=== PATIENT | male | born 1970 | race Caucasian/White ===

== ENCOUNTER 2019-03-19 21:13 | Inpatient (IN) ==
[2019-03-19] MEDS ORDERED: SODIUM CHLORIDE 0.9% 1000ML 2,000 ML IV ONE (22:13)
[2019-03-19] MEDS ORDERED: DAPTOMYCIN IV ONE (22:15)
[2019-03-19 22:22] LABS: Mean Corpuscular Hgb Conc 30.2 g/dL (32-36)
[2019-03-19 22:30] LABS: Albumin Level 3.2 gm/dl (3.4-5.0); BUN Creatinine Ratio 8.9 (10-20); Bilirubin Direct 0.2 mg/dl (0-0.2); Calcium 8.8 mg/dl (8.5-10.1); Creatinine Clr Calc Pharmacy 93.4 ml/min; Est GFR (African American) 90.2; Est GFR (Non-African American) 77.9; Magnesium 1.9 mg/dl (1.8-2.4)
[2019-03-19 22:33] LABS: Albumin Globulin Ratio 0.8 (0.9-2); Bilirubin,Total 0.5 mg/dl (0.2-1); Globulin 3.8 gm/dl (2.5-4.0); INR 1.2 (0.9-1.1); Partial Thromboplastin Ratio 1.6; Partial Thromboplastin Time 43.1 Seconds (21.0-31.0); Phosphorus 2.4 mg/dl (2.5-4.9); Prothrombin Time 12.6 Seconds (9.0-12.0)
[2019-03-19 22:55] LABS: Hematocrit (blood only) 32.3 % (42-52); Hemoglobin 9.6 g/dL (14.0-18.0); Mean Corpuscular Hemoglobin 22.9 pg (25-34); Mean Corpuscular Volume 77.1 fL (80-100); RDW Coefficient of Variation 17.6 % (11.5-14.5); RDW Standard Deviation 49.4 fL (36.4-46.3); Red Blood Count 4.19 M/uL (4.7-6.1); White Blood Count 4.48 K/uL (4.8-10.8)
--- NOTE | 2019-03-19 23:00 | XRay Report ---
XR chest 1V portable HISTORY: Sepsis COMPARISON: Chest 04/25/2018. FINDINGS: No pneumothorax. No pleural effusions. The heart remains mildly enlarged. No new focal lung consolidations to suggest pneumonia. No evidence for pulmonary edema. Right jugular Port-A-Cath term inates at the distal SVC. An 8 mm nodular density within the left lung base. IMPRESSION: 1. No acute process within the chest. 2. An 8 mm nodular density within the left lung base. This could represent a nipple shadow or possibl y pulmonary nodule given the patient's history of metastatic disease. Electronically signed by: Matias Tovar M.D. 03/19/2019 10:59 PM
[2019-03-19] MEDS ORDERED: FLUTICASONE PROPIONATE NA SPR 16 GM BTL PRN (23:03)
[2019-03-19] MEDS ORDERED: PROCHLORPERAZINE MALEATE 10 MG TAB PO PRN (23:03)
[2019-03-19] MEDS ORDERED: PANTOprazole 40 MG TAB PO PRN (23:03)
[2019-03-19] MEDS ORDERED: CHLORPROMAZINE HCL 25 MG TABLET PO PRN (23:03)
[2019-03-19] MEDS ORDERED: ONDANSETRON 8 MG TABLET PO PRN (23:03)
[2019-03-19] MEDS ORDERED: POLYETHYLENE (MIRALAX) 17 GM PACK PO PRN (23:06)
[2019-03-19] MEDS ORDERED: ONDANSETRON INJ 2 MG/ML 2 ML VIAL IV PRN (23:06)
[2019-03-19] MEDS ORDERED: ALUMINUM/MAGNESIUM SUSP 30 ML UDC PO PRN (23:06)
[2019-03-19] MEDS ORDERED: MAGNESIUM HYDROXIDE SUSP 30 ML UDC PO PRN (23:06)
[2019-03-19] MEDS ORDERED: ZOLPIDEM TARTRATE 5 MG TAB PO PRN (23:06)
[2019-03-19] MEDS ORDERED: VANCOMYCIN CONSULT ACTIVE PRN ×2 (23:06)
[2019-03-19 23:14] LABS: Influenza A virus by PCR Neg for Influ A (Neg); Influenza B virus by PCR Neg for Influ B (Neg)
[2019-03-19] MEDS ORDERED: SODIUM CHLORIDE 0.9% 1000ML 1,000 ML IV SCH (23:15)
[2019-03-19 23:31] LABS: Mean Platelet Volume 10.3 fL (7.4-10.4); Platelet Count 128 K/uL (130-400)
[2019-03-19 23:32] LABS: Basophils # (auto) 0.02 K/uL (0-0.2); Basophils % (auto) 0.4 %; Eosinophils # (auto) 0.01 K/uL (0-0.5); Eosinophils % (auto) 0.2 %; Hypochromasia Present; Immature Granulocytes # (auto) 0.02 K/uL (0.00-0.02); Immature Granulocytes % (auto) 0.4 %; Lymphocytes # (auto) 0.65 K/uL (1.2-3.4); Lymphocytes % (auto) 14.5 %; Monocytes # (auto) 0.26 K/uL (0.11-0.59); Monocytes % (auto) 5.8 %; Neutrophils # (auto) 3.52 K/uL (1.4-6.5); Neutrophils % (auto) 78.7 %; Platelet Estimate Decreased (Normal); Tear Drop Cells 1+
--- NOTE | 2019-03-19 23:49 | History & Physical Report ---
Date of Service March 19, 2019 Assessment & Plan (1) Gram-positive cocci bacteremia: Admit to telemetry Appears to be very heavy burden bacteria giving the quick transformation to positive So far 3/4 turn positive within hours Start patient on vancomycin with loading dose 20 mg/kg, consult pharmacy for vancomycin dose adjustment Also until sensitivity comes back we will add ceftriaxone 2 g IV daily for better coverage for strep Consult infectious diseases Consult Dr. Castañeda for port removal, discussed with Dr. Castañeda, will hold Xarelto and keep patient n.p.o. Discussed with patient and his and they are agreeable. 2/6 murmur, patient was not told he has any murmur before, will require 2D echo prior to discharge, will not order it now as a better yield will be if we wait few days, no signs or symptoms of acute congestive heart failure indicating no significant valvular lesion. Patient needs to be started on anticoagulation as soon as the procedure is finished Currently patient has no pharmacologic DVT prophylaxis (2) Colon cancer metastasized to liver: Patient is worried about continuation of his chemotherapy after removal of his port, will consult Dr. Chou (3) Lung nodule, solitary: In the setting of history of metastasized colon cancer that needs to be followed (4) Diabetes 1.5, managed as type 2: Hold metformin, start patient on sliding scale insulin History of Present Illness Chief Complaint: Fever and chills Primary Care Provider: Gera Giles MD 48 years old man with past medical history of diabetes mellitus, remote smoking history, mild obesity, was diagnosed with colon cancer on February 2018. He started chemotherapy on April 2018 for 9 months, he had a surgery at [facility] on where they did remove the cancer and 30% of hi s liver, he still have a small lesion in the liver. His course was complicated with DVT/pulmonary embolism and was started on Xarelto. Also he discovered the diabetes mellitus during the course of therapy and he was started on metformin. Family history strong for colon cancer in his maternal grandmother and maternal aunt who had cancerous polyps. He was in his regular state of health he had a port placed at [facility], yesterday developed chills and low-grade fever. He went to the [facility] today and found to have a fever of 103, blood cultures were redrawn at the cancer center and came back 2/2 gram-positive bacteria within hours of incubation. Presented to the ED and a repeat blood culture was obtained, and again within hours of incubation 1/2 came back gram-positive cocci. Patient will be admitted for further evaluation and management Allergies Allergy/AdvReac Type Severity Reaction Status Date / Time cetuximab [From Erbitux] Allergy Severe Bronchial Verified 03/19/19 22:55 Spasms Home Medications Home Medications Medication Instructions Recorded Confirmed Type fluticasone propionate [Flonase 2 spray INTRANASAL DAILY PRN 04/25/18 03/19/19 History Allergy Relief] ondansetron HCl [Zofran] 8 mg PO Q8H PRN 04/25/18 03/19/19 History prochlorperazine maleate 10 mg PO Q6H PRN 04/25/18 03/19/19 History [Compazine] hydrocortisone 1 applic TOPICAL BID PRN 07/22/18 03/19/19 History pantoprazole [Protonix] 40 mg PO DAILY PRN 07/22/18 03/19/19 History metformin 1,000 mg PO BID 08/02/18 03/19/19 History acetaminophen 500 mg PO Q6H PRN 03/19/19 03/19/19 History chlorpromazine 25 mg PO TID PRN 03/19/19 03/19/19 History rivaroxaban [Xarelto] 20 mg PO DAILY 03/19/19 03/19/19 History Past Med/Surg History Medical History (Updated 03/19/19 @ 23:45 by Mikki Montes MD) Anemia Colon cancer 02/2018--sx, chemo--metastasized to liver and lymph nodes Diabetes mellitus, type 2 (Acute) GERD (gastroesophageal reflux disease) Hypertension BORDERLINE Prediabetes Seasonal allergies Surgical History (Updated 07/22/18 @ 08:36 by Maisha Rivera RN) History of colonoscopy History of colostomy @ [facility], per pt no colon resection only colostomy History of esophagogastroduodenoscopy (EGD) History of vascular access device Aport on right side--currently receiving chemo treatments History of wisdom tooth extraction Hx of vasectomy Family History (Updated 07/22/18 @ 08:26 by Maisha Rivera RN) Unknown Family history of diabetes mellitus Aunt Family hx of colon cancer Other No family history of adverse response to anesthesia Social History Preferred Language: Urdu Communication Ability: 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 Beliefs That Will Affect Care: None Current Living Situation: Spouse and Family Current Living Situation Comment: Lives with and 2 kids Feels Safe at Home: Yes Smoking Status: Never smoker Second Hand Exposure: Yes (parents/most of family smoked) ; Hx Alcohol Use: Yes Alcohol type: beer, wine and hard liquor Hx Substance Use: No Review of Systems Review of Systems: Review of system Constitutional: Positive for fever, chills, fatigue and generalized weakness Eyes: no blurring of vision / no eye pain / no discharge / no redness ENT: no hearing loss / no epistaxis /no swallowing problems Respiratory: no cough / no wheezing / no SOB / no hemoptysis Cardiovascular: no Chest pain / no lower extremity edema / no palpitation Abdomen: no pain / no nausea / no vomiting / no constipation Musculoskeletal: no joint pain / no muscle pain / no joint swelling Genitourinary: no dysuria / no incontinence / no urinary retention Neurologic: no focal weakness / no numbness/tingling / no ataxia Psychiatric: no depression symptoms / no anxiety / no insomnia Endocrine: no excessive thirst / no excessive urination Hematologic: no abnormal bleeding / no bruising / no LN swelling Skin: No rash / no pallor Physical Exam Physical Exam: Physical examination General patient appears to be comfortable, not in acute distress HEENT: Atraumatic , normocephalic /no jaundice /no pallor /anicteric /no dry mucous membrane /normal external ear inspection Neck: Supple /no swelling /central trach Heart: S1/S2 normal/regular rate and rhythm/no gallop /no rub /2/6 parasternal soft murmur Lungs: Clear to auscultation bilaterally/normal chest with expansion/no rhonchi/no rales/no wheezing/no use of accessory muscles of respiration, no pus around the port Abdomen: Colostomy bag in place, soft/nontender/no guarding/no rebound/no organomegaly/no pulsatile mass Musculoskeletal: No swelling/no edema/no tenderness/normal range of motion Neuro exam: Awake alert oriented 3/cranial nerves II through XII appear to be intact/sensation intact/moves all extremities/no abnormal movements Psychiatric evaluation: No depressed mood/normal affect Skin: No rash on exposed skin area/no erythema Extremity: Normal pulse/no pitting edema/no clubbing or cyanosis Endocrine/lymphatic: No obvious lymphadenopathy /no lymphedema Results & Data Vital Signs (Past 12 Hours) Vital Signs Temp Pulse Resp BP Pulse Ox 03/19/19 23:15 90 19 03/19/19 23:01 92 H 23 03/19/19 23:00 93 H 19 117/73 03/19/19 22:58 94 H 18 108/63 03/19/19 22:45 94 H 26 H 03/19/19 22:30 94 H 14 03/19/19 21:16 37.5 C 92 H 20 109/76 96 Code Status & VTE Plan Code Status Full code VTE Prophylaxis Plan VTE Prophylaxis will be ordered: Yes PG Care Time/CCT Total # of Minutes Spent Total Time Spent with Patient: 35 minutes total time spent is greater than 50% in coordination of care (as documented) at patient's floor/unit and/or counseling patient/family discussion of care with nursing staff
--- NOTE | 2019-03-20 00:20 | Emergency Department Note ---
Entered by Jammie Estrada acting as a scribe for History of Present Illness General Chief complaint: Abnormal Labs/Diagnostic Testing Stated complaint: ADNORMAL LABS Time Seen by Provider: 03/19/19 21:20 History of Present Illness Provider complaint: illness Onset (ago): hour(s) (21) Pain Consistency: + other (episode) Quality: + other (illness) Associated symptoms: + headaches (behind eyes) and + other (chills, aches, sinus pressure, dizzy, nauseas, near-syncopal, positive blood cultures for infection, colon cancer, last chemo treatment was 2 weeks ago) Treatments prior to arrival: none The patient is a 48 year old male who presents to the ED with complaints of an episode of an illness that started 21 hours ago, The patient states that he had chills and aches last night at 1900. The patient states that when he woke up this morning he had sinus pressure and a headache behind his eyes. This patient notes that when he got into the shower this morning, he felt dizzy, nauseas and near-syncopal. The patient states that he went to his chemo appointment today, but his blood cultures were positive for infection so they are delaying chemo for one week. The patient notes that he is getting chemo therapy for colon cancer and his last treatment was 2 weeks ago. The patient denies taking any treatments prior to arrival. Home Medications Home Medications Medication Instructions Recorded Confirmed Type fluticasone propionate [Flonase 2 spray INTRANASAL DAILY PRN 04/25/18 03/19/19 History Allergy Relief] ondansetron HCl [Zofran] 8 mg PO Q8H PRN 04/25/18 03/19/19 History prochlorperazine maleate 10 mg PO Q6H PRN 04/25/18 03/19/19 History [Compazine] hydrocortisone 1 applic TOPICAL BID PRN 07/22/18 03/19/19 History pantoprazole [Protonix] 40 mg PO DAILY PRN 07/22/18 03/19/19 History metformin 1,000 mg PO BID 08/02/18 03/19/19 History acetaminophen 500 mg PO Q6H PRN 03/19/19 03/19/19 History chlorpromazine 25 mg PO TID PRN 03/19/19 03/19/19 History rivaroxaban [Xarelto] 20 mg PO DAILY 03/19/19 03/19/19 History Allergies Allergy/AdvReac Type Severity Reaction Status Date / Time cetuximab [From Erbitux] Allergy Severe Bronchial Verified 03/19/19 22:55 Spasms Past Med/Surg History Medical History Anemia Colon cancer 02/2018--sx, chemo--metastasized to liver and lymph nodes Diabetes mellitus, type 2 (Acute) GERD (gastroesophageal reflux disease) Hypertension BORDERLINE Prediabetes Seasonal allergies Surgical History History of colonoscopy History of colostomy @ [facility], per pt no colon resection only colostomy History of esophagogastroduodenoscopy (EGD) History of vascular access device Aport on right side--currently receiving chemo treatments History of wisdom tooth extraction Hx of vasectomy Family History Unknown Family history of diabetes mellitus Aunt Family hx of colon cancer Other No family history of adverse response to anesthesia Social History Preferred Language: Kiswahili Communication Ability: Effective 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 and A total of 10 systems reviewed and were otherwise negative Physical Exam Vital Signs Vital Signs - 24 hr 03/19/19 21:16 03/19/19 22:30 03/19/19 22:45 Temperature 37.5 C Temperature Source Oral Pulse Rate 92 H 94 H 94 H Respiratory Rate 20 14 26 H Blood Pressure 109/76 Blood Pressure Mean 87 Blood Pressure Position Sitting Pulse Oximetry 96 Sepsis Recent Fever Within 48 Hours Yes Sepsis New/Unexplained Change in Mental Status No Sepsis Action Taken by Nursing No Action Required 03/19/19 22:58 03/19/19 23:00 03/19/19 23:01 Temperature Temperature Source Pulse Rate 94 H 93 H 92 H Respiratory Rate 18 19 23 Blood Pressure 108/63 117/73 Blood Pressure Mean 71 78 Blood Pressure Position Pulse Oximetry Sepsis Recent Fever Within 48 Hours Sepsis New/Unexplained Change in Mental Status Sepsis Action Taken by Nursing GENERAL: Awake, alert, fatigued-appearing, in no distress HENT: Normocephalic, atraumatic. Oropharynx with dry mucous membranes and otherwise unremarkable. EYES: Normal conjunctiva. Sclera non-icteric. NECK: Supple. No nuchal rigidity. FROM. No JVD. RESPIRATORY: Clear to auscultation bilaterally. CARDIAC: Regular rate, normal rhythm. Extremities warm and well perfused. Pulses equal. ABDOMEN: Soft, non-distended. No tenderness to palpation. No rebound or guardin g. No masses. LLQ colostomy site, clean, dry and intact. RECTAL: Deferred. MUSCULOSKELETAL: Right upper chest wall port, clean, dry and intact. Chest examination reveals no tenderness. The back is symmetrical on inspection without obvious abnormality. There is no CVA tenderness to palpation. No joint edema. LOWER EXTREMITIES: Calves are equal size bilaterally and non-tender. No edema. No discoloration. NEURO: Normal sensorium. No sensory or motor deficits noted. SKIN: No rash or jaundice noted. Course Course 214: Past medical records reviewed. The patient was evaluated in room C7. A complete history and physical exam was performed. 2301: I discussed the patient's case with Dr. Magallon- [facility] Hospitalist. He will evaluate the patient for further management. Consultations Consultation #1: I discussed the patient's case with Dr. Partida [facility] Hospitalist. He will evaluate the patient for further management. Time: 23:02 Administered Medications Acetaminophen (Tylenol) 500 mg PO Q6H PRN PRN Reason: Fever Or Pain Stop: 04/18/19 23:02 Last Admin: 03/20/19 01:52 Dose: 500 mg Documented by: [id number] Sodium Chloride (Nss 1000ml) 1,000 mls @ 70 mls/hr IV .[id number] DOMINGO Stop: 03/20/19 13:32 Last Admin: 03/20/19 01:37 Dose: 70 mls/hr Documented by: [id number] Discontinued Medications Sodium Chloride (Nss 1000ml) 2,000 mls @ 999 mls/hr IV .Q2H1M ONE Stop: 03/20/19 00:13 Last Infusion: 12/12/19 01:19 Dose: 0 mls/hr Documented by: [id number] Admin: 03/19/19 22:33 Dose: 999 mls/hr Documented by: [id number] Daptomycin 579 mg/ Syringe 11.58 mls @ 5.79 mls/min IV NOW ONE; Protocol Stop: 03/19/19 22:16 Last Admin: 03/19/19 22:55 Dose: 5.79 mls/min Documented by: [id number] Vancomycin HCl 2,250 mg/ (Sodium Chloride) 545 mls @ 200 mls/hr IV TODAY@0200 ONE Stop: 03/20/19 04:43 Last Infusion: 03/20/19 04:28 Dose: 0 mls/hr Documented by: [id number] Admin: 03/20/19 01:37 Dose: 200 mls/hr Documented by: [id number] Medical Decision Making Differential Diagnosis Differential diagnosis: Etiologies such as viral syndrome, otitis, pharyngitis, pneumonia, influenza, meningitis, urinary tract infection, septic arthritis, soft tissue infectious process, intra-abdominal process, sepsis, bacteremia, as well as others were entertained. Medical Records Attestation: I reviewed the patient's medical records. Home Medications Current Medication List: was personally reviewed by me Laboratory Data Attestation: I reviewed the patient's lab results. Result diagrams: 03/19/19 22:01 03/19/19 22:01 Lab Results 03/19/19 03/19/19 03/19/19 Range/Units 22:01 22:01 22:01 WBC 4.48 L (4.8-10.8) K/uL RBC 4.19 L (4.7-6.1) M/uL Hgb 9.6 L (14.0-18.0) g/dL Hct 32.3 L (42-52) % MCV 77.1 L (80-100) fL MCH 22.9 L (25-34) pg MCHC 30.2 L (32-36) g/dL RDW Std Deviation 49.4 H (36.4-46.3) fL RDW Coeff of Bulmaro 17.6 H (11.5-14.5) % Plt Count 128 L (130-400) K/uL MPV 10.3 (7.4-10.4) fL Immature Gran % (Auto) 0.4 % Neut % (Auto) 78.7 % Lymph % (Auto) 14.5 % [place] % (Auto) 5.8 % Eos % (Auto) 0.2 % Baso % (Auto) 0.4 % Immature Gran # (Auto) 0.02 (0.00-0.02) K/uL Neut # (Auto) 3.52 (1.4-6.5) K/uL Lymph # (Auto) 0.65 L (1.2-3.4) K/uL [place] # (Auto) 0.26 (0.11-0.59) K/uL Eos # (Auto) 0.01 (0-0.5) K/uL Baso # (Auto) 0.02 (0-0.2) K/uL Platelet Estimate Decreased L (Normal) Hypochromasia Present Tear Drop Cells 1+ PT 12.6 H (9.0-12.0) Seconds INR 1.2 H (0.9-1.1) APTT 43.1 H (21.0-31.0) Seconds PTT Ratio 1.6 Sodium 134 L (136-145) mmol/L Potassium 4.0 (3.5-5.1) mmol/L Chloride 104 (98-107) mmol/L Carbon Dioxide 23 (21-32) mmol/L Anion Gap 8.0 (3-11) BUN 10 (7-18) mg/dl Creatinine 1.10 (0.6-1.4) mg/dl Est Cr Clr Drug Dosing 93.4 ml/min Est GFR ( Amer) 90.2 Est GFR (Non-Af Amer) 77.9 BUN/Creatinine Ratio 8.9 L (10-20) Glucose 137 H (70-99) mg/dl Lactate (0.4-2.0) mmol/L Calcium 8.8 (8.5-10.1) mg/dl Phosphorus 2.4 L (2.5-4.9) mg/dl Magnesium 1.9 (1.8-2.4) mg/dl Total Bilirubin 0.5 (0.2-1) mg/dl Direct Bilirubin 0.2 (0-0.2) mg/dl AST 23 (15-37) U/L ALT 21 (12-78) U/L Alkaline Phosphatase 101 (45-117) U/L Total Protein 7.0 (6.4-8.2) gm/dl Albumin 3.2 L (3.4-5.0) gm/dl Globulin 3.8 (2.5-4.0) gm/dl Albumin/Globulin Ratio 0.8 L (0.9-2) Influenza Type A (PCR) (Neg) Influenza Type B (PCR) (Neg) 03/19/19 03/19/19 Range/Units 22:25 22:25 WBC (4.8-10.8) K/uL RBC (4.7-6.1) M/uL Hgb (14.0-18.0) g/dL Hct (42-52) % MCV (80-100) fL MCH (25-34) pg MCHC (32-36) g/dL RDW Std Deviation (36.4-46.3) fL RDW Coeff of Bulmaro (11.5-14.5) % Plt Count (130-400) K/uL MPV (7.4-10.4) fL Immature Gran % (Auto) % Neut % (Auto) % Lymph % (Auto) % [place] % (Auto) % Eos % (Auto) % Baso % (Auto) % Immature Gran # (Auto) (0.00-0.02) K/uL Neut # (Auto) (1.4-6.5) K/uL Lymph # (Auto) (1.2-3.4) K/uL [place] # (Auto) (0.11-0.59) K/uL Eos # (Auto) (0-0.5) K/uL Baso # (Auto) (0-0.2) K/uL Platelet Estimate (Normal) Hypochromasia Tear Drop Cells PT (9.0-12.0) Seconds INR (0.9-1.1) APTT (21.0-31.0) Seconds PTT Ratio Sodium (136-145) mmol/L Potassium (3.5-5.1) mmol/L Chloride (98-107) mmol/L Carbon Dioxide (21-32) mmol/L Anion Gap (3-11) BUN (7-18) mg/dl Creatinine (0.6-1.4) mg/dl Est Cr Clr Drug Dosing ml/min Est GFR ( Amer) Est GFR (Non-Af Amer) BUN/Creatinine Ratio (10-20) Glucose (70-99) mg/dl Lactate 1.2 (0.4-2.0) mmol/L Calcium (8.5-10.1) mg/dl Phosphorus (2.5-4.9) mg/dl Magnesium (1.8-2.4) mg/dl Total Bilirubin (0.2-1) mg/dl Direct Bilirubin (0-0.2) mg/dl AST (15-37) U/L ALT (12-78) U/L Alkaline Phosphatase (45-117) U/L Total Protein (6.4-8.2) gm/dl Albumin (3.4-5.0) gm/dl Globulin (2.5-4.0) gm/dl Albumin/Globulin Ratio (0.9-2) Influenza Type A (PCR) Neg for Influ A (Neg) Influenza Type B (PCR) Neg for Influ B (Neg) Imaging Data Radiologist's Impression: Radiology results as stated below per my review and the radiologist's interpretation: XR chest 1V portable HISTORY: Sepsis COMPARISON: Chest 04/25/2018. FINDINGS: No pneumothorax. No pleural effusions. The heart remains mildly enlarged. No new focal lung consolidations to suggest pneumonia. No evidence for pulmonary edema. Right jugular Port-A-Cath terminates at the distal SVC. An 8 mm nodular density within the left lung base. IMPRESSION: 1. No acute process within the chest. 2. An 8 mm nodular density within the left lung base. This could represent a nipple shadow or possibly pulmonary nodule given the patient's history of metastatic disease. Electronically signed by: Matias Tovar M.D. 03/19/2019 10:59 PM ECG Data Attestation: I personally reviewed and interpreted this ECG as follows: Indication: + weakness Rate (beats per minute): 94 Rhythm: + normal sinus ECG [place]: + Normal ECG ST segments: no ST depression and no ST elevation ECG Findings: + Other (QTC 397); no PACs and no PVCs Blood Pressure Blood Pressure Findings: Low blood pressure Blood Pressure Disposition: further management by hospitalist KEVIN Ambriz The patient is a pleasant 48-year-old gentleman with a past medical history of metastatic colon cancer status post colostomy who presents emergency department after having outpatient blood work done this morning after he reported genera lized body aches and malaise to his hematology team who subsequently postponed his chemo that was scheduled for today and obtain blood work including blood culture from his port and a peripheral site both of which began to grow gram positive cocci and so the patient was called to go to the emergency department per HPI. Arrival the patient is fatigued appearing but no acute distress, afebrile stable vital signs. The patient appears clinically dry. His right upper chest wall Port-A-Cath site is clean dry and intact and nontender. Exam is otherwise unremarkable. EKG without overt acute ischemia. Chest x-ray with out acute cardiopulmonary process. WBC 4.4, H/H9 0.6/32.3 and platelets 128 approximate 2 prior values this morning. Chemistry without acidosis. Phosphorus 2.4 and electrolytes otherwise unremarkable. Lactate within normal limits. LFTs unremarkable. Flu was negative. I did review the patient's blood culture with pharmacy and given growth of gram-positive cocci recommendations are for daptomycin IV. Case was discussed with Dr. Magallon, [facility] hospitalist, who will evaluate the patient for admission. Impression & Plan Bacteremia, Colon cancer metastasized to liver, Thrombocytopenia, Anemia Discharge Plan Visit Data *Final* Discharge Date/Time: 03/20/19 00:11 Chief Complaint: Abnormal Labs/Diagnostic Testing Stated Complaint: ADNORMAL LABS ED Provider: Jesse Edouard Discharge Problem: Bacteremia, Colon cancer metastasized to liver, Thrombocytopenia, Anemia Patient Disposition: Admitted As Inpatient Discharge Instructions Interventions: ED Discharge Assessment Last Done: 03/20/19 00:11 Discharge Problem: Anemia Qualifiers: Anemia type: unspecified type Qualified Code(s): D64.9 - Anemia, unspecified The scribe's documentation has been prepared under my direction and personally reviewed by me in its entirety. I confirm that the note above accurately reflects all work, treatment, procedures, and medical decision making performed by me.
[2019-03-20] MEDS ORDERED: DEXTROSE 50% 50 ML SYRINGE IV PRN (00:54)
[2019-03-20] MEDS ORDERED: GLUCOSE 40% GEL 15 GM TUBE PO PRN (00:54)
[2019-03-20] MEDS ORDERED: GLUCAGON FOR INJ 1 MG VIAL SQ PRN (00:54)
[2019-03-20] MEDS ORDERED: CARBOHYDRATES FOR HYPOGLYCEMIA PO PRN (00:54)
[2019-03-20] MEDS ORDERED: GLUCOSE 10 TABS/TUBE PO PRN (00:54)
[2019-03-20] MEDS ORDERED: HYDROCORTISONE 1% CRM 30 GM TUBE EXT PRN (00:59)
[2019-03-20] MEDS: ACETAMINOPHEN 500 MG TAB PO PRN ×2 (01:52→20:33)
[2019-03-20] MEDS ORDERED: VANCOMYCIN HCL 2,250 MG in SODIUM CHLORIDE 0.9% 500 ML IV ONE (02:00)
[2019-03-20] MEDS ORDERED: Nursing to Pharmacy Communication ONE ×2 (03:30→15:47)
[2019-03-20 06:22] LABS: Appearance Urine Clear (Clear); Bilirubin Urine Negative (Negative); Blood Urine Negative (Negative); Color Urine Yellow; Glucose Urine UA Negative (Negative); Ketones Urine Negative (Negative); Leukocyte Esterase Urine Negative (Negative); Nitrite Urine Negative (Negative); Protein Urine Negative (Negative); Specific Gravity Urine 1.014 (1.000-1.030); Urobilinogen Urine Negative (Negative)
[2019-03-20] MEDS: INSULIN ASPART 100 UNITS/ML 3 ML PEN SC SCH ×4 (06:39→21:08)
[2019-03-20] MEDS ORDERED: INSULIN ASPART 100 UNITS/ML 3 ML PEN SC SCH (07:30)
[2019-03-20 08:24] LABS: Basophils # (auto) 0.02 K/uL (0-0.2); Basophils % (auto) 0.8 %; Hematocrit (blood only) 29.5 % (42-52); Lymphocytes # (auto) 0.36 K/uL (1.2-3.4); Lymphocytes % (auto) 14.9 %; Mean Corpuscular Hemoglobin 23.3 pg (25-34); Mean Corpuscular Hgb Conc 30.5 g/dL (32-36); Mean Corpuscular Volume 76.2 fL (80-100); Mean Platelet Volume 10.6 fL (7.4-10.4); Monocytes # (auto) 0.23 K/uL (0.11-0.59); Monocytes % (auto) 9.5 %; Neutrophils % (auto) 74.8 %; Platelet Count 107 K/uL (130-400); RDW Coefficient of Variation 17.7 % (11.5-14.5); RDW Standard Deviation 49.1 fL (36.4-46.3); Red Blood Count 3.87 M/uL (4.7-6.1); White Blood Count 2.41 K/uL (4.8-10.8)
[2019-03-20] MEDS: LACTOBACILLUS ACIDOPHILUS 1 GM PACK PO SCH ×3 (08:27→17:17)
[2019-03-20 08:42] LABS: BUN Creatinine Ratio 7.7 (10-20); Calcium 8.4 mg/dl (8.5-10.1); Creatinine Clr Calc Pharmacy 111.7 ml/min; Est GFR (Non-African American) 96.6; Magnesium 1.9 mg/dl (1.8-2.4); Potassium 3.8 mmol/L (3.5-5.1)
[2019-03-20 08:52] LABS: Estimated Average Glucose 146 mg/dl; Hemoglobin A1C 6.7 % (4.5-5.6)
[2019-03-20] MEDS ORDERED: RIVAROXABAN 20 MG TAB PO SCH (09:00)
--- NOTE | 2019-03-20 09:44 | Pharmacy Report ---
Pharmacy Abx Dose Short Note - Date of Service March 20, 2019 - Assessment & Plan Assessment 48 year old M receiving vancomycin/rocephin for treatment of gram positive cocci bactermia (possibly in chains per lab) Day # 1 of antimicrobial therapy. Patient meets criteria for vancomycin AUC dosing nomogram AUC/VANCE is the preferred PK/PD target for vancomycin * Target AUC/VANCE = 400-600 * AUC guided dosing is effective and associated with decreased risk of nephrotoxicity * Trough levels poorly correlate with AUC/VANCE and trough monitoring has been associated with increased risk of nephrotoxicity Plan Vancomycin * Loading dose: 2250mg X 1 last evening (0200) * Initiate 1500 mg IV every 8 hours starting @ 1000 * Trough or random level ordered for: 03/21/19 @ 0130 Pharmacy will continue to follow and will adjust dose/frequency as necessary. Thank you.
[2019-03-20] MEDS: cefTRIAXone SODIUM 2,000 MG in DEXTROSE 5% 50 ML IV SCH (10:04)
--- NOTE | 2019-03-20 10:39 | Infectious Disease Consult ---
Date of Consultation March 20, 2019 Assessment & Plan (1) Gram positive sepsis: will change to vanco awaiting further ID/sensitivity gpc, repeat cultures pending. Needs echo. highly concerned for port as source, surgical eval pending, will likely benefit from removal. will follow. History of Present Illness Attending Physician: Rob Alcala MD pt admitted from [facility]. began with sudden onset f/c on night, went to [facility] center on sun, blood cultures drawn, + admitted and started on IV rocephin, tolerating well. tmax this am 39.3. having shakes and chills. repeat blood cultures done last evening and are pending, initial blood cultures growing gpc. currently feeling better, min simeon. denies cp, sob, cough, no abd pain, no n/v/d. no gu symptoms. has colon ca with mets to liver, was receiving chemo, had break for surgery, done in 01/2019, tolerated well. recently restarted with chemo. has had left chest wall port since Apr. no pain, no drainage. was not using for some time, now resumed with initiiation of chemo. states cultures obtained from port and perph. wbc 6, now 2. creat 1. CXR negative, UA negativ,e flu swab negative. no sick contacts. Allergies Allergy/AdvReac Type Severity Reaction Status Date / Time cetuximab [From Erbitux] Allergy Severe Bronchial Verified 03/19/19 22:55 Spasms Home Medications Home Medications Medication Instructions Recorded Confirmed Type fluticasone propionate [Flonase 2 spray INTRANASAL DAILY PRN 04/25/18 03/19/19 History Allergy Relief] ondansetron HCl [Zofran] 8 mg PO Q8H PRN 04/25/18 03/19/19 History prochlorperazine maleate 10 mg PO Q6H PRN 04/25/18 03/19/19 History [Compazine] hydrocortisone 1 applic TOPICAL BID PRN 07/22/18 03/19/19 History pantoprazole [Protonix] 40 mg PO DAILY PRN 07/22/18 03/19/19 History metformin 1,000 mg PO BID 08/02/18 03/19/19 History acetaminophen 500 mg PO Q6H PRN 03/19/19 03/19/19 History chlorpromazine 25 mg PO TID PRN 03/19/19 03/19/19 History rivaroxaban [Xarelto] 20 mg PO DAILY 03/19/19 03/19/19 History Patient History Medical History Anemia Colon cancer 02/2018--sx, chemo--metastasized to liver and lymph nodes Diabetes mellitus, type 2 (Acute) GERD (gastroesophageal reflux disease) Hypertension BORDERLINE Prediabetes Seasonal allergies Surgical History History of colonoscopy History of colostomy @ [facility], per pt no colon resection only colostomy History of esophagogastroduodenoscopy (EGD) History of vascular access device Aport on right side--currently receiving chemo treatments History of wisdom tooth extraction Hx of vasectomy Family History Unknown Family history of diabetes mellitus Aunt Family hx of colon cancer Other No family history of adverse response to anesthesia Social History Preferred Language: Kazakh Communication Ability: Effective Motion Picture Equipment Supervisor Required: No Beliefs That Will Affect Care: None Current Living Situation: Spouse Current Living Situation Comment: Lives with and 2 kids Feels Safe at Home: Yes Smoking Status: Never smoker Second Hand Exposure: Yes (parents/most of family smoked) ; Hx Alcohol Use: Yes Alcohol type: beer Hx Substance Use: No Review of Systems Review of Systems: All systems reviewed & are unremarkable except as noted in HPI & below Physical Exam Constitutional: WD/WN, vitals as above Eyes: PERRL, conjunctivae normal, anicteric sclerae ENMT: external ear and nose normal, oropharynx normal Neck: normal visual inspection Respiratory: normal respiratory effort, lungs clear to auscultation Cardiovascular: RRR, no murmur, no edema Gastrointestinal (Abdomen): normal bowel sounds, soft, nontender, no hepatosplenomegaly Musculoskeletal: no cyanosis or clubbing, extremities motor strength 5/5 Skin: no rashes, warm and dry port dressing c/d/i, no surrounding warmth, non tender, no erythema. Psychiatric: A+Ox3, euthymic affect Results & Data Vital Signs (Past 12 Hours) Vital Signs Temp Pulse Pulse Pulse Resp BP BP 03/20/19 07:06 39.3 C H 91 H 16 03/20/19 04:00 37.5 C 83 16 03/20/19 00:53 38.1 C H 93 H 16 117/74 03/20/19 00:01 93 H 31 H 03/20/19 00:00 91 H 29 H 106/56 L 03/19/19 23:31 91 H 16 03/19/19 23:30 90 24 109/62 03/19/19 23:15 90 19 03/19/19 23:01 92 H 23 03/19/19 23:00 93 H 19 117/73 03/19/19 22:58 94 H 18 108/63 03/19/19 22:45 94 H 26 H BP Pulse Ox 03/20/19 07:06 111/67 97 03/20/19 04:00 97/60 L 97 03/20/19 00:53 98 03/20/19 00:01 03/20/19 00:00 03/19/19 23:31 03/19/19 23:30 03/19/19 23:15 03/19/19 23:01 03/19/19 23:00 03/19/19 22:58 03/19/19 22:45 PG Care Time/CCT Total # of Minutes Spent Total Time Spent with Patient: Total time spent is greater than 50% in coordination of care (as documented) at patient's floor/unit and/or counseling patient:
[2019-03-20] MEDS ORDERED: VANCOMYCIN CONSULT ACTIVE PRN (10:40)
[2019-03-20] MEDS ORDERED: VANCOMYCIN HCL 1,500 MG in SODIUM CHLORIDE 0.9% 500 ML IV SCH (10:45)
[2019-03-20] MEDS: VANCOMYCIN HCL 1,500 MG in SODIUM CHLORIDE 0.9% 500 ML IV SCH ×2 (10:57→18:50)
--- NOTE | 2019-03-20 11:55 | Consultation ---
Date of Consultation March 20, 2019 Assessment & Plan (1) Bloodstream infection due to Port-A-Cath: Removal of the port is recommended. This will be done today. We will repeat the blood cultures later this week. If these cultures come back negative then reinsertion of a port will be planned for Sunday or Sunday of next week. I have discussed the risks options and benefits of the procedure with the patient. The patient understands the risks options and benefits and agrees to the procedure. Thank you very much for letting us participate in the care of this patient. History of Present Illness Reason for Consultation: Infected Ruutkv-e-Uwgz right internal jugular vein. Attending Physician: Rob Alcala MD History of Present Illness This is a 48-year-old gentleman who has had a Tqntxt-y-Cwbb inserted in April of this year for chemotherapy. He was seen yesterday with fevers and chills and had positive blood cultures. No other source could be seen other than the Bhtybq-i-Yhkm. His chemotherapy is on hold till next week at this point. He denies any drainage from the site. He denies any tenderness or pain. Allergies Allergy/AdvReac Type Severity Reaction Status Date / Time cetuximab [From Erbitux] Allergy Severe Bronchial Verified 03/19/19 22:55 Spasms Home Medications Home Medications Medication Instructions Recorded Confirmed Type fluticasone propionate [Flonase 2 spray INTRANASAL DAILY PRN 04/25/18 03/19/19 History Allergy Relief] ondansetron HCl [Zofran] 8 mg PO Q8H PRN 04/25/18 03/19/19 History prochlorperazine maleate 10 mg PO Q6H PRN 04/25/18 03/19/19 History [Compazine] hydrocortisone 1 applic TOPICAL BID PRN 07/22/18 03/19/19 History pantoprazole [Protonix] 40 mg PO DAILY PRN 07/22/18 03/19/19 History metformin 1,000 mg PO BID 08/02/18 03/19/19 History acetaminophen 500 mg PO Q6H PRN 03/19/19 03/19/19 History chlorpromazine 25 mg PO TID PRN 03/19/19 03/19/19 History rivaroxaban [Xarelto] 20 mg PO DAILY 03/19/19 03/19/19 History Patient History Medical History Anemia Colon cancer 02/2018--sx, chemo--metastasized to liver and lymph nodes Diabetes mellitus, type 2 (Acute) GERD (gastroesophageal reflux disease) Hypertension BORDERLINE Prediabetes Seasonal allergies Surgical History History of colonoscopy History of colostomy @ [facility], per pt no colon resection only colostomy History of esophagogastroduodenoscopy (EGD) History of vascular access device Aport on right side--currently receiving chemo treatments History of wisdom tooth extraction Hx of vasectomy Family History Unknown Family history of diabetes mellitus Aunt Family hx of colon cancer Other No family history of adverse response to anesthesia Social History Preferred Language: Maldivian Communication Ability: Effective Disaster Response Director Required: No Beliefs That Will Affect Care: None Current Living Situation: Spouse Current Living Situation Comment: Lives with and 2 kids Feels Safe at Home: Yes Smoking Status: Never smoker Second Hand Exposure: Yes (parents/most of family smoked) ; Hx Alcohol Use: Yes Alcohol type: beer Hx Substance Use: No Review of Systems Review of Systems: All systems reviewed & are unremarkable except as noted in HPI & below Physical Exam Constitutional: WD/WN, vitals as above Respiratory: normal respiratory effort; no respiratory distress Cardiovascular: Rate/Rhythm: regular rate and regular rhythm Heart Sounds: + murmur Skin: + incision (There is no erythema around the port. There is no tenderness around the port.) Neurologic: CN's II-XI intact bilaterally Motor/Sensory: normal movement and no sensory deficit Psychiatric: A+Ox3, euthymic affect Results & Data Vital Signs (Past 12 Hours) Vital Signs Temp Pulse Pulse Pulse Resp BP BP 03/20/19 07:06 39.3 C H 91 H 16 03/20/19 04:00 37.5 C 83 16 03/20/19 00:53 38.1 C H 93 H 16 117/74 03/20/19 00:01 93 H 31 H 03/20/19 00:00 91 H 29 H 106/56 L BP Pulse Ox 03/20/19 07:06 111/67 97 03/20/19 04:00 97/60 L 97 03/20/19 00:53 98 03/20/19 00:01 03/20/19 00:00
[2019-03-20] MEDS ORDERED: LIDOCAINE HCL 1% 20 ML VIAL ONE (12:48)
--- NOTE | 2019-03-20 12:58 | Pre Anesthesia Assessment ---
Date of Service March 20, 2019 Pre Sedation Assessment Vital Signs Temp Pulse Pulse Pulse Resp BP BP 03/20/19 12:30 38.1 C H 85 20 03/20/19 11:30 38 C H 90 16 03/20/19 07:06 39.3 C H 91 H 16 03/20/19 04:00 37.5 C 83 16 03/20/19 00:53 38.1 C H 93 H 16 117/74 03/20/19 00:01 93 H 31 H 03/20/19 00:00 91 H 29 H 106/56 L 03/19/19 23:31 91 H 16 03/19/19 23:30 90 24 109/62 03/19/19 23:15 90 19 03/19/19 23:01 92 H 23 03/19/19 23:00 93 H 19 117/73 03/19/19 22:58 94 H 18 108/63 03/19/19 22:45 94 H 26 H 03/19/19 22:30 94 H 14 03/19/19 21:16 37.5 C 92 H 20 109/76 BP Pulse Ox 03/20/19 12:30 114/62 96 03/20/19 11:30 104/63 94 03/20/19 07:06 111/67 97 03/20/19 04:00 97/60 L 97 03/20/19 00:53 98 03/20/19 00:01 03/20/19 00:00 03/19/19 23:31 03/19/19 23:30 03/19/19 23:15 03/19/19 23:01 03/19/19 23:00 03/19/19 22:58 03/19/19 22:45 03/19/19 22:30 03/19/19 21:16 96 Cardiovascular RRR, no murmur, no edema Respiratory normal respiratory effort, lungs clear to auscultation Pre-Sedation Airway Assessment Smoking Status: Never smoker Hx Sleep Apnea: No Short, Thick Neck: No Thyromental Distance: > or= 3.5 Finger Breadths Oral Cavity: + WNL Mallampati Class: II ASA: ASA3 NPO Status Date of Last Intake of Fluids: 03/19/19 Time of Last Intake of Fluids: 23:00 Date of Last Intake of Solid Food: 03/19/19 Time of Last Intake of Solid Foods: 23:00 Procedure Planning Contraindications for Sedation: none Current Medications Reviewed: Yes Notes The planned sedation has been discussed with the patient. Informed Consent was obtained. I have identified the patient, determined the appropriateness of sedation and have assessed the patient immediately prior to the procedure. All medicine(s) and interventions are by my order.
[2019-03-20] MEDS ORDERED: MIDAZOLAM HCL 1 MG/ML 2ML VIAL ONE (13:06)
[2019-03-20] MEDS ORDERED: fentaNYL citrate 100 MCG/2 ML VIAL ONE (13:06)
--- NOTE | 2019-03-20 13:35 | Post Operative Brief Note ---
Immediate Post Op Note v1 Date of Surgery March 20, 2019 Pre & Post Diagnosis Operation Date: 03/20/19 13:50 Pre-op Dx: Infected infusaport Post-op Dx: Infected infusaport Operation Date: 03/24/19 11:40 <No data on this case meets the specified criteria> I identified the patient and participated in the time-out.: Yes Procedure Operation Date: 03/20/19 13:50 Actual Procedures p Removal Of Aport, Moderate Concious Sedation 1315 to 1346(Right) - Benji Castañeda MD Operation Date: 03/24/19 11:40 <No data on this case meets the specified criteria> Surgeon Benji Castañeda MD Radio Time Sales Supervisor MD Ebony Estimated Blood Loss 5 Findings Consistent with Post-Op Diagnosis Specimens catheter tip and port both cultured Anesthesia Type RN Sedation Complications none Disposition Accompanied Patient To Recovery: No Disposition: Recovery Room
[2019-03-20] MEDS ORDERED: ARISTA ABSORBABLE HEMOSTAT 3GM TOP ONE (13:40)
--- NOTE | 2019-03-20 13:44 | Procedure Note ---
Post Operative Report Pre & Post Diagnosis Operation Date: 03/20/19 13:50 Pre-Op Diagnosis: BACTEREMIA Post-Op Diagnosis: BACTEREMIA Operation Date: 03/24/19 11:40 <No data on this case meets the specified criteria> Procedure Operation Date: 03/20/19 13:50 Actual Procedures p Removal Of Aport, Moderate Concious Sedation 1315 to(Right) - Benji Castañeda MD Operation Date: 03/24/19 11:40 <No data on this case meets the specified criteria> Surgeon Benji Castañeda MD Carbide Tool Maker MD Ebony Estimated Blood Loss 5 Findings Consistent with Post-Op Diagnosis Specimens Port and tip sent for culture Drains None Anesthesia Type RN Sedation Complications none Disposition Accompanied Patient To Recovery: No Disposition: Recovery Room Indications This is a 48-year-old gentleman who has had a Yqnsmc-f-Tkaj inserted in April of this year for chemotherapy. He was seen yesterday with fevers and chills and had positive blood cultures. No other source could be seen other than the Ruljfg-m-Svru. His chemotherapy is on hold till next week at this point. He denies any drainage from the site. He denies any tenderness or pain. We discussed removal of the infected port. We described the procedure and associated risks. The patient wished to proceed with the procedure. Surgical consent was obtained. The operative site was marked. Description of Procedure Patient was taken to the angio suite and placed in the supine position. The right side of the neck and chest wall were prepped and draped in a sterile manner. The patient was identified and a timeout performed. Local anesthesia was then administered to the appropriate areas of the neck and chest wall. A transverse incision was made below the clavicle on the chest wall in the line of the old incision. Bleeding was controlled using cautery. Using sharp and blunt dissection the port and fibrin sheath were dissected free and removed. The catheter slid out easily. Adequate hemostasis was then obtained. Once adequate hemostasis was noted the wound was then closed. The incision was closed using a 3-0 Vicryl suture for the subcutaneous layer and a 4-0 Vicryl subcuticular stitch for the skin layer. Dermabond was used for a dressing on the incision. Pressure was applied to the catheter site over the internal jugular vein. An x- ray was taken of the patient's chest and did not show any retained catheter. At the conclusion of the case all needle, sponge, and instrument counts were correct. The patient left the angio suite in good condition and tolerated the procedure well. Dr. Castañeda was present and scrubbed for the entire procedure. I attest to the content of the Intraoperative Record and any orders documented therein. Any exceptions are noted below.
--- NOTE | 2019-03-20 13:49 | Post Anesthesia Assessment ---
Date of Service March 20, 2019 Post Sedation Assessment Vital Signs Temp Pulse Pulse Pulse Resp BP BP 03/20/19 13:46 88 14 105/66 03/20/19 13:41 86 14 107/63 03/20/19 13:40 86 14 107/63 03/20/19 13:35 80 16 110/64 03/20/19 13:30 84 16 110/64 03/20/19 13:25 82 15 104/65 03/20/19 13:20 81 15 102/68 03/20/19 13:15 78 17 108/63 03/20/19 13:10 79 17 103/66 03/20/19 12:30 38.1 C H 85 20 03/20/19 11:30 38 C H 90 16 03/20/19 07:06 39.3 C H 91 H 16 03/20/19 04:00 37.5 C 83 16 03/20/19 00:53 38.1 C H 93 H 16 117/74 03/20/19 00:01 93 H 31 H 03/20/19 00:00 91 H 29 H 106/56 L 03/19/19 23:31 91 H 16 03/19/19 23:30 90 24 109/62 03/19/19 23:15 90 19 03/19/19 23:01 92 H 23 03/19/19 23:00 93 H 19 117/73 03/19/19 22:58 94 H 18 108/63 03/19/19 22:45 94 H 26 H 03/19/19 22:30 94 H 14 03/19/19 21:16 37.5 C 92 H 20 109/76 BP Pulse Ox 03/20/19 13:46 98 03/20/19 13:41 99 03/20/19 13:40 99 03/20/19 13:35 100 03/20/19 13:30 100 03/20/19 13:25 100 03/20/19 13:20 100 03/20/19 13:15 97 03/20/19 13:10 99 03/20/19 12:30 114/62 96 03/20/19 11:30 104/63 94 03/20/19 07:06 111/67 97 03/20/19 04:00 97/60 L 97 03/20/19 00:53 98 03/20/19 00:01 03/20/19 00:00 03/19/19 23:31 03/19/19 23:30 03/19/19 23:15 03/19/19 23:01 03/19/19 23:00 03/19/19 22:58 03/19/19 22:45 03/19/19 22:30 03/19/19 21:16 96 Recovery Score Activity: Moves 4 extremities Respiration: Deep Breath/Cough Circulation: +/-20% PreAnes Value Consciousness: Fully Awake Oxygen Saturation: > 92% On Room Air Post Anesthesia Score: 10 Discharge Sedation Level of Care: Fast Track Phase II Post Sedation Plan On clinical assessment, the patient appears to have tolerated the sedation without complications. Patient is recovering as anticipated. Patient will continue to be monitored by nursing and may be discharged when sedation discharge criteria are met per below protocol. Upon Completions of procedure up to 15 minutes continue every 5 minute vital signs and the P.A.R. score; then discharge to a Phase I or Fast Track to Phase II per the following guidelines: * Discharge Patient to appropriate Phase II area if PAR is 8 or greater or return to pre- procedure baseline. The post - procedure orders will be as directed. * If PAR score is less than 8 or not return to pre-procedure baseline then patient will follow Phase I monitoring till PAR is reached for Phase II. The Phase I may be done in procedure room or may call to secure a Phase I area. * If naloxone or flumazenil are used for reversal, hold in Phase I for continued monitoring from when last reversal dose was given for a minimum of 60 minutes or longer pending the nurse and/or physician discretion of patient condition before discharge to Phase II. Please call the Sedation Physician to re-evaluate and complete post-note for discharge to Phase II area. Do NOT discharge from procedure sedation or Phase 1 until post- sedation evaluation note is complete by procedure /sedation MD Sedation Discharge Instructions to be given to the patient at discharge to home.
--- NOTE | 2019-03-20 16:00 | Hospitalist Progress Note ---
Date of Service March 20, 2019 Assessment & Plan (1) Gram-positive cocci bacteremia: Alpha strep, not strep pneumo or enterococcus. No murmur heard on exam today but heard on admission. Patient will need TTE given bacteria grown. Blood culture on 03/21 @ 48 hours. Continue on vancomycin and ceftriaxone Port removal today - appreciate vascular management. (2) Colon cancer metastasized to liver: Consult heme/onc (3) Lung nodule, solitary: Concerning for further metasatic disease in the setting of history of metastasized colon cancer that needs to be followed (4) Diabetes mellitus: Metformin alone as outpatient. HbA1C 6.7. Insulin sliding scale while here T2DM diet (5) Pancytopenia due to antineoplastic chemotherapy: Consult heme/onc for possibility of requiring Neulasta if not recently given. (6) History of pulmonary embolism: Will continue to hold Xarelto tonight after port removal and restart tomorrow. No hypoxia or chest pain. (7) DVT prophylaxis: as above (8) Discharge planning issues: Likely will need 48 hour blood cultures negative, line placed and then set up IV antibiotics depending on ID recommendations. Subjective Patient seen in a.m. Lying in bed, comfortable. He reports no further sinus congestion or headache. No cough, shortness of breath, chest pain, dysuria, urine frequency. No nausea, vomiting, abdominal pain, constipation, diarrhea. His ostomy is working normally. No further fevers or chills. Review of Systems Review of Systems: All systems reviewed & are unremarkable except as noted in HPI & below Physical Exam Constitutional: WD/WN, vitals as above Eyes: PERRL, conjunctivae normal, anicteric sclerae ENMT: external ear and nose normal, oropharynx normal Neck: normal visual inspection and trachea midline Respiratory: normal respiratory effort, lungs clear to auscultation normal respiratory effort; no respiratory distress Cardiovascular: RRR, no murmur, no edema Gastrointestinal (Abdomen): normal bowel sounds, soft, nontender, no hepatosplenomegaly Ostomy present, appears healthy with copious stool in bag. Musculoskeletal: no cyanosis or clubbing, extremities motor strength 5/5 Skin: no rashes, warm and dry + incision (No erythema around port.) Neurologic: moves all extremities and awake; no focal motor deficits and not confused Motor/Sensory: no tremor, normal movement, no pronator drift and no sensory deficit Psychiatric: A+Ox3, euthymic affect Results & Data Vital Signs (Past 12 Hours) Vital Signs Temp Pulse Pulse Resp BP BP Pulse Ox 03/20/19 15:25 36.5 C 87 18 103/61 97 03/20/19 13:46 88 14 105/66 98 03/20/19 13:41 86 14 107/63 99 03/20/19 13:40 86 14 107/63 99 03/20/19 13:35 80 16 110/64 100 03/20/19 13:30 84 16 110/64 100 03/20/19 13:25 82 15 104/65 100 03/20/19 13:20 81 15 102/68 100 03/20/19 13:15 78 17 108/63 97 03/20/19 13:10 79 17 103/66 99 03/20/19 12:30 38.1 C H 85 20 114/62 96 03/20/19 11:30 38 C H 90 16 104/63 94 03/20/19 07:06 39.3 C H 91 H 16 111/67 97 03/20/19 04:00 37.5 C 83 16 97/60 L 97 PG Care Time/CCT Total # of Minutes Spent Total Time Spent with Patient: Total time spent is greater than 50% in coordination of care (as documented) at patient's floor/unit and/or counseling patient: (1) Diabetes mellitus Diabetes mellitus complication status: without complication Diabetes mellitus local company intermodal truck driver insulin use: without local company intermodal truck driver use Diabetes mellitus type: type 2 Qualified Code(s): E11.9 - Type 2 diabetes mellitus without complications
[2019-03-20] MEDS ORDERED: ACETAMINOPHEN 500 MG TAB PO PRN (23:15)
[2019-03-21 01:14] LABS: Hematocrit (blood only) 28.5 % (42-52); Hemoglobin 8.5 g/dL (14.0-18.0); Mean Corpuscular Hemoglobin 23.1 pg (25-34); Mean Corpuscular Hgb Conc 29.8 g/dL (32-36); Mean Corpuscular Volume 77.4 fL (80-100); Mean Platelet Volume 9.5 fL (7.4-10.4); Platelet Count 108 K/uL (130-400); RDW Coefficient of Variation 17.7 % (11.5-14.5); RDW Standard Deviation 50.4 fL (36.4-46.3); Red Blood Count 3.68 M/uL (4.7-6.1); White Blood Count 2.26 K/uL (4.8-10.8)
[2019-03-21] MEDS ORDERED: VANCOMYCIN TROUGH ONE (01:30)
[2019-03-21 01:43] LABS: Basophils # (auto) 0.04 K/uL (0-0.2); Basophils % (auto) 1.8 %; Eosinophils # (auto) 0.03 K/uL (0-0.5); Eosinophils % (auto) 1.3 %; Giant Platelets 1+; Hypochromasia Present; Hypogranular Neutrophils 3+; Lymphocytes # (auto) 1.02 K/uL (1.2-3.4); Lymphocytes % (auto) 45.1 %; Monocytes # (auto) 0.34 K/uL (0.11-0.59); Neutrophils # (auto) 0.83 K/uL (1.4-6.5); Neutrophils % (auto) 36.8 %; Schistocytes Occasional; Tear Drop Cells 1+
[2019-03-21 01:46] LABS: Albumin Globulin Ratio 0.8 (0.9-2); Albumin Level 2.7 gm/dl (3.4-5.0); BUN Creatinine Ratio 8.8 (10-20); Bilirubin,Total 0.4 mg/dl (0.2-1); Creatinine Clr Calc Pharmacy 93.4 ml/min; Est GFR (African American) 90.2; Est GFR (Non-African American) 77.9; Globulin 3.5 gm/dl (2.5-4.0); Potassium 4.5 mmol/L (3.5-5.1); Total Protein 6.2 gm/dl (6.4-8.2)
[2019-03-21] MEDS ORDERED: HEPARIN 100 UNIT/ML 5ML FLUSH FLUSH PRN (02:04)
[2019-03-21] MEDS: VANCOMYCIN HCL 1,500 MG in SODIUM CHLORIDE 0.9% 500 ML IV SCH ×2 (03:09→10:26)
[2019-03-21] MEDS: INSULIN ASPART 100 UNITS/ML 3 ML PEN SC SCH ×4 (08:09→21:10)
[2019-03-21] MEDS: LACTOBACILLUS ACIDOPHILUS 1 GM PACK PO SCH ×3 (08:09→16:51)
[2019-03-21] MEDS: cefTRIAXone SODIUM 2,000 MG in DEXTROSE 5% 50 ML IV SCH (09:19)
--- NOTE | 2019-03-21 12:29 | Infectious Disease Progress Nt ---
Date of Service March 21, 2019 Assessment & Plan (1) Gram positive sepsis: will stop vanco, growing strep, continue cts. repeat cultures pending. Needs echo. s/p port removal, cultures pending If repeat cultures negative and echo negative would suggest rocehin 2gIV daily x 14 days from first negative culture. If cultures remain + after port removal will require longer course of IV abx. Subjective pt seen in followup, eating lunch. overall feeling better, had fever overnight, tmax 39.2, now afebrile. no sweats or chills. no abd pain, no n/v/d. no cp,sob, cough. port out, min tenderness at port site, no drainage. remains on ctx and vanco, tolerating well. wbc 2.2, 03/19 blood cultures from 8:30, 22:00 growing alpha strep, port culture and pocket cultures pending, repeat blood cultues done this am and are pending. Review of Systems Review of Systems: All systems reviewed & are unremarkable except as noted in HPI & below Physical Exam Constitutional: WD/WN, vitals as above Eyes: PERRL, conjunctivae normal, anicteric sclerae ENMT: external ear and nose normal, oropharynx normal Neck: normal visual inspection Respiratory: normal respiratory effort, lungs clear to auscultation Cardiovascular: RRR, no murmur, no edema Gastrointestinal (Abdomen): normal bowel sounds, soft, nontender, no hepat osplenomegaly Musculoskeletal: no cyanosis or clubbing, extremities motor strength 5/5 Skin: no rashes, warm and dry incision c/d/i, no erythema, no drainge, min tenderness Psychiatric: A+Ox3, euthymic affect Results & Data Vital Signs (Past 12 Hours) Vital Signs Temp Pulse Resp BP Pulse Ox 03/21/19 11:03 37.6 C H 81 20 105/61 98 03/21/19 07:38 37.2 C 79 18 113/72 98 03/21/19 03:14 37.1 C 78 18 108/63 95 Laboratory Results Microbiology 03/20/19 13:23 Catheter Tip, A-port Catheter Tip Culture - Preliminary No growth to date. 03/20/19 13:23 Chest Gram Stain - Final 03/20/19 13:23 Chest Aerobic and Anaerobic Culture - Preliminary No growth to date. 03/19/19 22:01 Blood Aerobic Blood Culture - Preliminary Alpha strep not S.pne/enteroco 03/19/19 22:01 Blood Anaerobic Blood Culture - Preliminary Alpha strep not S.pne/enteroco PG Care Time/CCT Total # of Minutes Spent Total Time Spent with Patient: Total time spent is greater than 50% in coordination of care (as documented) at patient's floor/unit and/or counseling patient:
--- NOTE | 2019-03-21 16:57 | Oncology Consultation ---
Date of Consultation March 21, 2019 Assessment & Plan (1) Bloodstream infection due to Port-A-Cath: He has a gram-positive bacteremia. The most likely source is his port, though he had no obvious signs of a port infection. Regardless, it is appropriate to have it removed, as it could serve as a nidus for recurring bacteremia if left in place. He had a TTE that revealed no vegetations. He is still spiking fevers, so remains on broad spectrum antibiotics. He should hopefully start improving in the next day or so. Present on Admission?: Yes (2) Pancytopenia due to antineoplastic chemotherapy: I suspect the pancytopenia is related to sepsis and marrow suppression rather than chemo. He is more than 2 weeks out from his last treatment and his counts only really started falling when he became ill. His marrow is heavily treated and that can lead to these issues. If his counts do not improve and he remains febrile, we could consider adding GCSF. Otherwise, I expect his counts will improve as his infection is controlled. Present on Admission?: Yes History of Present Illness Reason for Consultation: Strep bovis bacteremia Colon cancer Attending Physician: Rob Alcala MD History of Present Illness Mr. Santamaria is a patient of [facility]. He has a stage IV colon adenocarcinoma and is currently undergoing chemotherapy with single-agent 5-FU. His last dose was 03/05. He came for his next cycle on 03/19 and was acutely unwell. He was febrile and complained of chills and fatigue. My nurse practitioner gave him some supportive IV fluids and mina an infectious workup. Blood cultures drawn that day grew out GPCs and so I sent him to the ER after hours. The cultures subsequently speciated as Strep bovis that was rosenthal sensitive. As a result, he had his port removed on the day of admission. He denied any redness, tenderness, or warmth at his port site. He denied any other infectious symptoms, such as cough, shortness of breath, dysuria, diarrhea, rashes, or URI symptoms. He also denied any nausea, vomiting, or new or worsening pain. Allergies Allergy/AdvReac Type Severity Reaction Status Date / Time cetuximab [From Erbitux] Allergy Severe Bronchial Verified 03/19/19 22:55 Spasms Home Medications Home Medications Medication Instructions Recorded Confirmed Type fluticasone propionate [Flonase 2 spray INTRANASAL DAILY PRN 04/25/18 03/19/19 History Allergy Relief] ondansetron HCl [Zofran] 8 mg PO Q8H PRN 04/25/18 03/19/19 History prochlorperazine maleate 10 mg PO Q6H PRN 04/25/18 03/19/19 History [Compazine] hydrocortisone 1 applic TOPICAL BID PRN 07/22/18 03/19/19 History pantoprazole [Protonix] 40 mg PO DAILY PRN 07/22/18 03/19/19 History metformin 1,000 mg PO BID 08/02/18 03/19/19 History acetaminophen 500 mg PO Q6H PRN 03/19/19 03/19/19 History chlorpromazine 25 mg PO TID PRN 03/19/19 03/19/19 History rivaroxaban [Xarelto] 20 mg PO DAILY 03/19/19 03/19/19 History Patient History Medical History Anemia Colon cancer 02/2018--sx, chemo--metastasized to liver and lymph nodes Diabetes mellitus, type 2 (Acute) GERD (gastroesophageal reflux disease) Hypertension BORDERLINE Prediabetes Seasonal allergies Surgical History History of colonoscopy History of colostomy @ [facility], per pt no colon resection only colostomy History of esophagogastroduodenoscopy (EGD) History of vascular access device Aport on right side--currently receiving chemo treatments History of wisdom tooth extraction Hx of vasectomy Family History Unknown Family history of diabetes mellitus Aunt Family hx of colon cancer Other No family history of adverse response to anesthesia Social History Preferred Language: Bangladeshi Communication Ability: Effective Machine 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 Required: No Beliefs That Will Affect Care: None Current Living Situation: Spouse Current Living Situation Comment: Lives with and 2 kids Feels Safe at Home: Yes Smoking Status: Never smoker Second Hand Exposure: Yes (parents/most of family smoked) ; Hx Alcohol Use: Yes Alcohol type: beer Hx Substance Use: No Review of Systems Review of Systems: All systems reviewed & are unremarkable except as noted in HPI & below Physical Exam Constitutional: healthy appearing and comfortable; no acute distress ENMT: external ear and nose normal, oropharynx normal Respiratory: normal respiratory effort, lungs clear to auscultation Cardiovascular: RRR, no murmur, no edema Gastrointestinal (Abdomen): Inspection/Auscultation: normal bowel sounds; abdomen not distended Percussion/Palpation: abdomen soft; abdomen nontender Skin: no rashes, warm and dry Psychiatric: A+Ox3, euthymic affect Lymphatic: no cervical or axillary lymphadenopathy Results & Data Vital Signs (Past 12 Hours) Vital Signs Temp Pulse Resp BP Pulse Ox 03/21/19 15:52 38.5 C H 81 20 110/70 95 03/21/19 11:03 37.6 C H 81 20 105/61 98 03/21/19 07:38 37.2 C 79 18 113/72 98 Laboratory Results Laboratory Tests 03/19/19 03/21/19 08:43 01:01 WBC 6.89 2.26 L Hgb 10.4 L 8.5 L Plt Count 147 108 L A UA from 03/19 was non-infectious and rapid influenza A/B was negative. Diagnostic Findings CXR, 03/19/19: IMPRESSION: 1. No acute process within the chest. 2. An 8 mm nodular density within the left lung base. This could represent a nipple shadow or possibly pulmonary nodule given the patient's history of metastatic disease.
[2019-03-21] MEDS: RIVAROXABAN 20 MG TAB PO SCH (21:08)
[2019-03-22 09:34] LABS: Basophils # (auto) 0.01 K/uL (0-0.2); Basophils % (auto) 0.4 %; Eosinophils # (auto) 0.07 K/uL (0-0.5); Eosinophils % (auto) 2.9 %; Hematocrit (blood only) 32.8 % (42-52); Hemoglobin 9.9 g/dL (14.0-18.0); Immature Granulocytes # (auto) 0.01 K/uL (0.00-0.02); Immature Granulocytes % (auto) 0.4 %; Lymphocytes # (auto) 0.82 K/uL (1.2-3.4); Lymphocytes % (auto) 34.3 %; Mean Corpuscular Hemoglobin 22.8 pg (25-34); Mean Corpuscular Hgb Conc 30.2 g/dL (32-36); Mean Corpuscular Volume 75.6 fL (80-100); Mean Platelet Volume 10.8 fL (7.4-10.4); Monocytes # (auto) 0.35 K/uL (0.11-0.59); Monocytes % (auto) 14.6 %; Neutrophils # (auto) 1.13 K/uL (1.4-6.5); Neutrophils % (auto) 47.4 %; Platelet Count 158 K/uL (130-400); RDW Coefficient of Variation 17.5 % (11.5-14.5); RDW Standard Deviation 47.9 fL (36.4-46.3); Red Blood Count 4.34 M/uL (4.7-6.1); White Blood Count 2.39 K/uL (4.8-10.8)
[2019-03-22] MEDS: INSULIN ASPART 100 UNITS/ML 3 ML PEN SC SCH ×4 (09:38→20:50)
[2019-03-22] MEDS: LACTOBACILLUS ACIDOPHILUS 1 GM PACK PO SCH ×3 (09:38→17:44)
[2019-03-22] MEDS: cefTRIAXone SODIUM 2,000 MG in DEXTROSE 5% 50 ML IV SCH (09:38)
[2019-03-22 10:23] LABS: BUN Creatinine Ratio 8.8 (10-20); Calcium 8.6 mg/dl (8.5-10.1); Creatinine Clr Calc Pharmacy 108.2 ml/min; Est GFR (African American) 107.7; Ferritin 62.6 ng/ml (8-388); Potassium 3.8 mmol/L (3.5-5.1)
--- NOTE | 2019-03-22 12:35 | Hematology/Oncology Prog Note ---
Date of Service March 22, 2019 Assessment & Plan (1) Bloodstream infection due to Port-A-Cath: His cultures have been negative since admission, which is encouraging. The plan is for 2 weeks of IV antibiotics from the day of the first negative culture. I would probably wait to place another port until he finishes his antibiotics. That being said, we could arrange for a port placement right around that time and then resume his chemotherapy shortly thereafter. I would want to hold off on treatment in that interval anyway. I would coordinate that plan with Dr. Castañeda. Present on Admission?: Yes (2) Pancytopenia due to antineoplastic chemotherapy: His counts are recovering, which supports the idea that his cytopenias were related to sepsis. I would hold off on GCSF for now. Present on Admission?: Yes Subjective Mr. Santamaria is looking and feeling much better. He had a fever yesterday afternoon with some sweats. Since then, he's felt much better. He has no pain and denies any other acute issues. Review of Systems Constitutional: + fever (last yesterday in the early afternoon) and + fatigue Respiratory: no cough and no dyspnea Gastrointestinal: no abdominal pain, no nausea and no diarrhea/loose stools Genitourinary: no dysuria Integumentary: no rash Neurologic: no headache(s) Physical Exam Constitutional: healthy appearing and comfortable; no acute distress ENMT: external ear and nose normal, oropharynx normal Respiratory: normal respiratory effort, lungs clear to auscultation Cardiovascular: RRR, no murmur, no edema Gastrointestinal (Abdomen): Inspection/Auscultation: normal bowel sounds; abdomen not distended Percussion/Palpation: abdomen soft; abdomen nontender Psychiatric: A+Ox3, euthymic affect Results & Data Vital Signs (Past 12 Hours) Vital Signs Temp Pulse Pulse Resp BP Pulse Ox 03/22/19 11:29 36.5 C 65 19 111/72 99 03/22/19 08:00 69 03/22/19 07:25 36.5 C 65 18 119/72 100 03/22/19 04:07 36.3 C L 67 18 103/61 96 Laboratory Results Abnormal lab results 03/21/19 03/21/19 03/22/19 Range/Units 16:23 20:38 07:27 WBC (4.8-10.8) K/uL RBC (4.7-6.1) M/uL Hgb (14.0-18.0) g/dL Hct (42-52) % MCV (80-100) fL MCH (25-34) pg MCHC (32-36) g/dL RDW Std Deviation (36.4-46.3) fL RDW Coeff of Bulmaro (11.5-14.5) % MPV (7.4-10.4) fL Neut # (Auto) (1.4-6.5) K/uL Lymph # (Auto) (1.2-3.4) K/uL Anion Gap (3-11) BUN/Creatinine Ratio (10-20) Glucose (70-99) mg/dl POC Glucose 129 H 164 H 139 H (70-99) Iron (35-175) mcg/dl Transferrin % Sat (20-50) % 03/22/19 03/22/19 03/22/19 Range/Units 09:02 09:02 11:38 WBC 2.39 L (4.8-10.8) K/uL RBC 4.34 L (4.7-6.1) M/uL Hgb 9.9 L (14.0-18.0) g/dL Hct 32.8 L (42-52) % MCV 75.6 L (80-100) fL MCH 22.8 L (25-34) pg MCHC 30.2 L (32-36) g/dL RDW Std Deviation 47.9 H (36.4-46.3) fL RDW Coeff of Bulmaro 17.5 H (11.5-14.5) % MPV 10.8 H (7.4-10.4) fL Neut # (Auto) 1.13 L (1.4-6.5) K/uL Lymph # (Auto) 0.82 L (1.2-3.4) K/uL Anion Gap 2.0 L (3-11) BUN/Creatinine Ratio 8.8 L (10-20) Glucose 190 H (70-99) mg/dl POC Glucose 138 H (70-99) Iron 15 L (35-175) mcg/dl Transferrin % Sat 4 L (20-50) %
[2019-03-22] MEDS: RIVAROXABAN 20 MG TAB PO SCH (19:27)
--- NOTE | 2019-03-22 21:09 | Hospitalist Progress Note ---
Date of Service March 21, 2019 Assessment & Plan (1) Gram-positive cocci bacteremia: Alpha strep, not strep pneumo or enterococcus. TTE with no vegetations, will defer to infectious disease whether he requires VALERIO to completely rule out infective endocarditis. No peripheral stigmata of infective endocarditis at this time.. Repeat blood cultures taken this morning. Stopped vancomycin as per infectious disease plan. Continue ceftriaxone. Port removed 03/20 and will follow these cultures. (2) Colon cancer metastasized to liver: Consult heme/onc (3) Lung nodule, solitary: Concerning for further metasatic disease in the setting of history of metastasized colon cancer that needs to be followed (4) Diabetes mellitus: Metformin alone as outpatient. HbA1C 6.7. Insulin sliding scale while here T2DM diet (5) Pancytopenia due to antineoplastic chemotherapy: Discussed with Dr. Chou. No need for Neulasta at this time. We will get iron studies for morning labs. No melena reported by patient (6) History of pulmonary embolism: Continue Xarelto (7) DVT prophylaxis: as above (8) Discharge planning issues: Awaiting 48-hour blood cultures to be negative from today. Patient to co ntinue on ceftriaxone. Subjective Ongoing fevers yesterday. T-max 39.2. On this patient feels like he is improving. No abnormal embolic type pains. No change in his stool in ostomy bag. Now on neutropenic precautions, no bruising Review of Systems Review of Systems: All systems reviewed & are unremarkable except as noted in HPI & below Physical Exam Constitutional: WD/WN, vitals as above Eyes: PERRL, conjunctivae normal, anicteric sclerae ENMT: external ear and nose normal, oropharynx normal Neck: normal visual inspection and trachea midline Respiratory: normal respiratory effort, lungs clear to auscultation no respiratory distress Cardiovascular: RRR, no murmur, no edema Gastrointestinal (Abdomen): normal bowel sounds, soft, nontender, no hepatosplenomegaly Musculoskeletal: no cyanosis or clubbing, extremities motor strength 5/5 Skin: no rashes, warm and dry + incision (No cellulitis surrounding surgical scar.) Neurologic: moves all extremities and awake; not confused Psychiatric: A+Ox3, euthymic affect Results & Data Vital Signs (Past 12 Hours) Vital Signs Temp Pulse Pulse Resp BP Pulse Ox 03/22/19 19:03 36.8 C 69 20 135/70 98 03/22/19 15:23 74 03/22/19 15:15 36.6 C 70 20 109/69 98 03/22/19 11:29 36.5 C 65 19 111/72 99 PG Care Time/CCT Total # of Minutes Spent Total Time Spent with Patient: Total time spent is greater than 50% in coordination of care (as documented) at patient's floor/unit and/or counseling patient: (1) Diabetes mellitus Diabetes mellitus type: type 2 Diabetes mellitus retirement insulin use: without intermediate card tender use Diabetes mellitus complication status: without complication Qualified Code(s): E11.9 - Type 2 diabetes mellitus without complications
--- NOTE | 2019-03-22 21:20 | Hospitalist Progress Note ---
Date of Service March 22, 2019 Assessment & Plan (1) Gram-positive cocci bacteremia: Pansensitive streptococcal bovis. TTE with no vegetations, will defer to infectious disease whether he requires VALERIO to completely rule out infective endocarditis, this will be done earliest on Sunday. No peripheral stigmata of infective endocarditis. Repeat blood cultures from 03/11 negative at 24 hours Continue ceftriaxone. Port removed 03/20 - cultures negative to date. (2) Colon cancer metastasized to liver: Consult heme/onc (3) Lung nodule, solitary: Concerning for further metasatic disease in the setting of history of metastasized colon cancer that needs to be followed (4) Diabetes mellitus: Metformin alone as outpatient. HbA1C 6.7. Insulin sliding scale while here T2DM diet (5) History of pulmonary embolism: Continue Xarelto (6) Pancytopenia: Suspected due to sepsis. Appears to be improving. Some degree of iron deficiency however will let anemia return to baseline prior to supplementation. (7) DVT prophylaxis: as above (8) Discharge planning issues: Awaiting 48-hour blood cultures to be negative from 03/21. Patient to continue on ceftriaxone. If no need for VALERIO from infectious disease he will need ultrasound-guided peripheral line placed and set up with outpatient intravenous antibiotics. If this could be performed tomorrow he potentially could go home. Subjective Additional fever yesterday of 38.5. Patient reports no significant fevers or chills. Ostomy bag output unchanged. No abdominal pain. Review of Systems Review of Systems: All systems reviewed & are unremarkable except as noted in HPI & below Physical Exam Constitutional: WD/WN, vitals as above Eyes: + anicteric sclerae; normal pupil size ENMT: external ear and nose normal, oropharynx normal Neck: normal visual inspection and trachea midline Respiratory: normal respiratory effort, lungs clear to auscultation no respiratory distress Cardiovascular: RRR, no murmur, no edema Gastrointestinal (Abdomen): normal bowel sounds, soft, nontender, no hepatosplenomegaly Musculoskeletal: no cyanosis or clubbing, extremities motor strength 5/5 Skin: no rashes, warm and dry + incision (No cellulitis surrounding surgical incision site.) Neurologic: moves all extremities and awake; not confused Motor/Sensory: no tremor, normal movement, no pronator drift and no sensory deficit Psychiatric: A+Ox3, euthymic affect Results & Data Vital Signs (Past 12 Hours) Vital Signs Temp Pulse Pulse Resp BP Pulse Ox 03/22/19 19:03 36.8 C 69 20 135/70 98 03/22/19 15:23 74 03/22/19 15:15 36.6 C 70 20 109/69 98 03/22/19 11:29 36.5 C 65 19 111/72 99 PG Care Time/CCT Total # of Minutes Spent Total Time Spent with Patient: Total time spent is greater than 50% in coordination of care (as documented) at patient's floor/unit and/or counseling patient: (1) Diabetes mellitus Diabetes mellitus complication status: without complication Diabetes mellitus intermediate project manager insulin use: without residential use Diabetes mellitus type: type 2 Qualified Code(s): E11.9 - Type 2 diabetes mellitus without complications
[2019-03-23] MEDS: LACTOBACILLUS ACIDOPHILUS 1 GM PACK PO SCH ×3 (08:14→17:27)
[2019-03-23 08:23] LABS: Basophils # (auto) 0.03 K/uL (0-0.2); Basophils % (auto) 1.2 %; Eosinophils # (auto) 0.22 K/uL (0-0.5); Hematocrit (blood only) 33.7 % (42-52); Hemoglobin 10.2 g/dL (14.0-18.0); Immature Granulocytes # (auto) 0.01 K/uL (0.00-0.02); Immature Granulocytes % (auto) 0.4 %; Lymphocytes # (auto) 0.85 K/uL (1.2-3.4); Lymphocytes % (auto) 34.7 %; Mean Corpuscular Hemoglobin 23.1 pg (25-34); Mean Corpuscular Hgb Conc 30.3 g/dL (32-36); Mean Corpuscular Volume 76.4 fL (80-100); Mean Platelet Volume 10.4 fL (7.4-10.4); Monocytes # (auto) 0.32 K/uL (0.11-0.59); Monocytes % (auto) 13.1 %; Neutrophils # (auto) 1.02 K/uL (1.4-6.5); Neutrophils % (auto) 41.6 %; Platelet Count 210 K/uL (130-400); RDW Coefficient of Variation 17.6 % (11.5-14.5); RDW Standard Deviation 49.1 fL (36.4-46.3); Red Blood Count 4.41 M/uL (4.7-6.1); White Blood Count 2.45 K/uL (4.8-10.8)
[2019-03-23] MEDS: cefTRIAXone SODIUM 2,000 MG in DEXTROSE 5% 50 ML IV SCH (08:28)
[2019-03-23 08:57] LABS: BUN Creatinine Ratio 9.1 (10-20); Calcium 9.2 mg/dl (8.5-10.1); Creatinine Clr Calc Pharmacy 119.5 ml/min; Est GFR (African American) 117.2; Est GFR (Non-African American) 101.1; Potassium 4.1 mmol/L (3.5-5.1)
[2019-03-23] MEDS: INSULIN ASPART 100 UNITS/ML 3 ML PEN SC SCH ×4 (12:17→21:53)
[2019-03-23] MEDS: RIVAROXABAN 20 MG TAB PO SCH (21:55)
--- NOTE | 2019-03-24 00:08 | Hospitalist Progress Note ---
Date of Service March 23, 2019 Assessment & Plan (1) Gram-positive cocci bacteremia: Pansensitive streptococcal bovis. TTE with no vegetations, no need for VALERIO. No peripheral stigmata of infective endocarditis. Repeat blood cultures from 03/21 negative at 48 hours Continue ceftriaxone, last day of administration 04/03 Port removed 03/20 - cultures negative to date. Discussed port placement timing with Dr Chou and Dr Castañeda. Concerned placing tomorrow would be too close positive blood cultures and as per Dr Chou there is no upton to put this in as long as it can be arranged as an outpatient. Will also get infectious disease input tomorrow regarding timing of placement. (2) Colon cancer metastasized to liver: Follow-up with oncology. Requires port placement in the near future for ongoing chemotherapy as above. (3) Lung nodule, solitary: Concerning for further metasatic disease in the setting of history of metastasized colon cancer that needs to be followed (4) Diabetes mellitus: Metformin alone as outpatient. HbA1C 6.7. Insulin sliding scale while here T2DM diet (5) Pancytopenia: Suspected due to sepsis. Continues to improve, platelets within normal limits. Some degree of iron deficiency however will let anemia return to baseline prior to supplementation. (6) History of pulmonary embolism: Continue Xarelto (7) DVT prophylaxis: as above (8) Discharge planning issues: No infectious disease coverage today. Plan to discuss with all parties (Dr Castañeda, Effie and Pipo) tomorrow regarding timing of port placement. Suspect can go home tomorrow if plan in place for outpatient port. Patient will need US guided peripheral line (order placed) for antibiotics and set up for MTU or home for 14 days of ceftriaxone from negative blood culture result. Subjective No acute events overnight. No concerns or questions at this time. No further fevers or chills. Review of Systems Review of Systems: All systems reviewed & are unremarkable except as noted in HPI & below Physical Exam Constitutional: WD/WN, vitals as above (apyrexial since 03/11) Eyes: PERRL, conjunctivae normal, anicteric sclerae + anicteric sclerae; normal pupil size ENMT: external ear and nose normal, oropharynx normal Neck: normal visual inspection and trachea midline Respiratory: normal respiratory effort, lungs clear to auscultation no respiratory distress Cardiovascular: RRR, no murmur, no edema Gastrointestinal (Abdomen): normal bowel sounds, soft, nontender, no hepatosplenomegaly Musculoskeletal: no cyanosis or clubbing, extremities motor strength 5/5 Skin: no rashes, warm and dry + incision (Mild erythema surrounding incision site, no warmth) erythema surrounding incision more concerning for cellulitis today but no fluid collection noted Neurologic: moves all extremities and awake; not confused Motor/Sensory: normal movement Psychiatric: A+Ox3, euthymic affect Results & Data Vital Signs (Past 12 Hours) Vital Signs Temp Pulse Pulse Resp BP Pulse Ox 03/23/19 21:06 36.4 C L 71 18 108/73 99 03/23/19 16:00 63 03/23/19 15:14 36.5 C 69 16 112/70 100 PG Care Time/CCT Total # of Minutes Spent Total Time Spent with Patient: Total time spent is greater than 50% in coordination of care (as documented) at patient's floor/unit and/or counseling patient: (1) Diabetes mellitus Diabetes mellitus type: type 2 Diabetes mellitus shelter insulin use: without shelter use Diabetes mellitus complication status: without complication Qualified Code(s): E11.9 - Type 2 diabetes mellitus without complications
[2019-03-24 07:18] LABS: Basophils # (auto) 0.02 K/uL (0-0.2); Basophils % (auto) 0.7 %; Eosinophils # (auto) 0.23 K/uL (0-0.5); Eosinophils % (auto) 8.3 %; Hematocrit (blood only) 32.5 % (42-52); Hemoglobin 9.8 g/dL (14.0-18.0); Immature Granulocytes # (auto) 0.01 K/uL (0.00-0.02); Immature Granulocytes % (auto) 0.4 %; Lymphocytes # (auto) 1.09 K/uL (1.2-3.4); Lymphocytes % (auto) 39.5 %; Mean Corpuscular Hemoglobin 22.7 pg (25-34); Mean Corpuscular Hgb Conc 30.2 g/dL (32-36); Mean Corpuscular Volume 75.4 fL (80-100); Mean Platelet Volume 10.7 fL (7.4-10.4); Monocytes # (auto) 0.31 K/uL (0.11-0.59); Monocytes % (auto) 11.2 %; Neutrophils % (auto) 39.9 %; Platelet Count 217 K/uL (130-400); RDW Coefficient of Variation 17.6 % (11.5-14.5); RDW Standard Deviation 48.5 fL (36.4-46.3); Red Blood Count 4.31 M/uL (4.7-6.1); White Blood Count 2.76 K/uL (4.8-10.8)
[2019-03-24 07:48] VITALS: O2SAT 98
[2019-03-24 07:58] LABS: BUN Creatinine Ratio 10.5 (10-20); Calcium 8.8 mg/dl (8.5-10.1); Creatinine Clr Calc Pharmacy 128.4 ml/min; Est GFR (African American) 120.7; Est GFR (Non-African American) 104.2
[2019-03-24] MEDS: LACTOBACILLUS ACIDOPHILUS 1 GM PACK PO SCH ×2 (09:09→12:00)
[2019-03-24] MEDS: INSULIN ASPART 100 UNITS/ML 3 ML PEN SC SCH ×2 (09:09→12:01)
[2019-03-24] MEDS: cefTRIAXone SODIUM 2,000 MG in DEXTROSE 5% 50 ML IV SCH (09:17)
--- NOTE | 2019-03-24 09:45 | Progress Note ---
DATE: 03/24/2019 DIAGNOSES: 1. Gram positive bacteremia. 2. Metastatic colorectal cancer. 3. Solitary lung nodule. 4. Type 2 diabetes mellitus. SUBJECTIVE: Naun is a very pleasant 48-year-old gentleman well known to [facility], currently under Dr. Chou's care with metastatic colorectal cancer. He was diagnosed with Streptococcus bovis bacteremia. MediPort was subsequently removed. Vascular service plans to reinstall a new device. Both Dr. Chou and the primary service are a bit hesitant and want the patient to continue antibiotics for a period of time before placing a new device. Clinically, the patient feels well, offers no complaints. Nursing also reports no overnight difficulties. OBJECTIVE: GENERAL: A very pleasant 48-year-old gentleman, awake, alert and appropriate, in no acute distress. VITAL SIGNS: Temperature 36.5, pulse 61, respiratory rate 20, blood pressure 116/73. SKIN: Without rash or lesion. HEENT: Oral mucosa without erythema or ulceration. HEART: Regular rate and rhythm. LUNGS: Clear to auscultation bilaterally. ABDOMEN: Soft, nontender, nondistended. EXTREMITIES: No clubbing, cyanosis or edema. NEUROLOGIC: Grossly intact. LABORATORY DATA: WBC count 2760, hemoglobin 9.8, platelet count 217,000. Sodium 141, potassium 4.0, chloride 110, carbon dioxide 27, creatinine 0.8, BUN 8. IMPRESSION: 1. Streptococcus bovis bacteremia. 2. Metastatic colorectal cancer. 3. Removed MediPort device. In summary, I had the pleasure of meeting Naun today at bedside. Clinically, feeling much better. He continues antibiotics appropriate for the invading organism. MediPort has been removed. The question is when to reinstall new advice. I would agree with Dr. Chou in the medical service. He should complete a full course of antimicrobials before placing a new device. Dr. Chou was comfortable with delay in therapy for a period of time to allow Mr. Santamaria to stabilize medically. I have nothing further to add. He remains mildly cytopenic, most likely attributable to previously administered chemotherapy. Outpatient followup has been arranged. Will officially sign off today and plan to have Dr. Chou see Mr. Santamaria in the outpatient arena.
--- NOTE | 2019-03-24 11:17 | Infectious Disease Progress Nt ---
Date of Service March 24, 2019 Assessment & Plan (1) Gram positive sepsis: continue rocephin for 14 days from first negative cultures, 03/21. no need for VALERIO from ID standpoint. S. bovis likely due to underlying colon malignancy. ok for d/c when otherwise stable. Subjective pt remains afebrile tolerating abx. 03/21 blood cultures negative to date x 2. port out, culture negative echo negative. wbc remains low but improving, likely due to chemo, heme/onc following. previous cultures growing s. bovis. Results & Data Vital Signs (Past 12 Hours) Vital Signs Temp Pulse Resp BP Pulse Ox 03/24/19 07:47 36.5 C 61 20 116/73 98 Laboratory Results Microbiology 03/21/19 07:16 Blood Aerobic Blood Culture - Preliminary No growth in Aerobic bottle after 48 hours. 03/21/19 07:16 Blood Anaerobic Blood Culture - Preliminary No growth in Anaerobic bottle after 48 hours. 03/21/19 07:16 Blood Aerobic Blood Culture - Preliminary No growth in Aerobic bottle after 48 hours. 03/21/19 07:16 Blood Anaerobic Blood Culture - Preliminary No growth in Anaerobic bottle after 48 hours. 03/20/19 13:23 Catheter Tip, A-port Catheter Tip Culture - Final No growth 03/19/19 22:01 Blood Aerobic Blood Culture - Preliminary Streptococcus bovis 03/19/19 22:01 Blood Anaerobic Blood Culture - Preliminary Streptococcus bovis 03/20/19 13:23 Chest Gram Stain - Final 03/20/19 13:23 Chest Aerobic and Anaerobic Culture - Preliminary No growth to date. PG Care Time/CCT Total # of Minutes Spent Total Time Spent with Patient: Total time spent is greater than 50% in coordination of care (as documented) at patient's floor/unit and/or counseling patient:
[2019-03-24 11:21] VITALS: TEMP 98.1
--- NOTE | 2019-03-24 15:30 | Discharge Summary ---
Date of Service March 24, 2019 Admission HPI Per Admitting Provider 48 years old man with past medical history of diabetes mellitus, remote smoking history, mild obesity, was diagnosed with colon cancer on February 2018. He started chemotherapy on April 2018 for 9 months, he had a surgery at [facility] on where they did remove the cancer and 30% of his liver, he still have a small lesion in the liver. His course was complicated with DVT/pulmonary embolism and was started on Xarelto. Also he discovered the diabetes mellitus during the course of therapy and he was started on metformin. Family history strong for colon cancer in his maternal gran dmother and maternal aunt who had cancerous polyps. He was in his regular state of health he had a port placed at [facility], yesterday developed chills and low-grade fever. He went to the [facility] center today and found to have a fever of 103, blood cultures were redra[facility] at [facility] and came back 2/2 gram-positive bacteria within hours of incubation. Presented to the ED and a repeat blood culture was obtained, and again within hours of incubation 1/2 came back gram-positive cocci. Patient will be admitted for further evaluation and management Principal Diagnosis Streptococcus bovis bacteremia, port infection Discharge Exam Constitutional WD/WN, vitals as above Eyes PERRL, conjunctivae normal, anicteric sclerae ENMT external ear and nose normal, oropharynx normal Neck trachea midline, no thyromegaly Respiratory normal respiratory effort, lungs clear to auscultation Cardiovascular RRR, no murmur, no edema Chest (Breasts) Chest: normal inspection of chest Gastrointestinal (Abdomen) Inspection/Auscultation: normal bowel sounds; + abdomen abnormal to inspection (colostomy bag in place with green-brown stool) and abdomen not distended Percussion/Palpation: abdomen soft; abdomen nontender, no guarding and abdomen not rigid Musculoskeletal Extremities: extremities normal to inspection; no cyanosis and no clubbing Skin no rashes, warm and dry Neurologic moves all extremities and awake; no focal motor deficits Psychiatric A+Ox3, euthymic affect Lymphatic no lymphedema Discharge Data Allergies Allergy/AdvReac Type Severity Reaction Status Date / Time cetuximab [From Erbitux] Allergy Severe Bronchial Verified 03/19/19 22:55 Spasms Consultations 03/19/19 22:13 ED Decision to Admit Stat 03/19/19 23:06 Consult Infectious Diseases Routine Consult Vascular Surgery Routine 03/20/19 23:25 Consult Oncology Routine 03/22/19 21:20 Consult Case Management - Discharge Planning Routine 03/24/19 08:48 Consult Case Management - Discharge Planning Routine Procedures Performed Operation Date: 03/20/19 13:50 Actual Procedures p Removal Of Aport, Moderate Concious Sedation 1315 to 1346(Right) - Benji Castañeda MD Operation Date: 03/24/19 11:40 <No data on this case meets the specified criteria> Ordered Studies 03/20/19 13:52 EV Aport removal Routine 03/24/19 07:12 US guide vascular access Routine ECHO CXR Hospital Course (1) Gram-positive cocci bacteremia: Pansensitive streptococcal bovis. TTE with no vegetations, no need for VALERIO. No peripheral stigmata of infective endocarditis. Repeat blood cultures from 03/21 negative at 72 hours Continue ceftriaxone 2 gm IV q24h, last day of administration 04/03 Port removed 03/20 - cultures negative to date. Port placement timing discussed with Dr Chou--> plan for towards the end of his abx therap or afterwards-can be arranged as outpt by Oncology -stable for dc to home with home IV abx US-guided peripheral IV placed on 03/24/19 and can stay in for 4 weeks if needed (2) Colon cancer metastasized to liver: Follow-up with oncology. Requires port placement in the near future for ongoing chemotherapy as above. S/p colectomy with colostomy (3) Lung nodule, solitary: Concerning for further metastatic disease in the setting of history of metastasized colon cancer that needs to be followed (4) Diabetes mellitus: Metformin alone as outpatient. HbA1C 6.7. Insulin sliding scale while here but senior controls analyst return to metformin after discharge T2DM diet (5) Pancytopenia: Suspected due to sepsis. Continues to improve, platelets within normal limits. Some degree of iron deficiency however will let anemia return to baseline prior to supplementation. -f/u CBC as outpt (6) History of pulmonary embolism: Continue Xarelto daily (7) DVT prophylaxis: as above (8) Discharge planning issues: Stable for dc to home with home IV abx arranged Total Time Total Time Spent Total Time Spent (In Minutes): 40 min Total Time Includes: Examination of the Patient, Discharge Planning and Medication Reconciliation Discharge Plan Discharge Items Patient Disposition: Home - Home Health Services Reason For Visit: BACTEREMIA Discharge Diagnosis: Sepsis due to streptococcal bovis bacteremia (bacterial bloodstream infection) Pancytopenia (low hemoglobin, white blood cells and platelets) due to sepsis Condition on Discharge: Good Goals: You have been hospitalized for an acute medical problem. During your stay at [facility], we have made an effort to correct the problem that brought you to the hospital while keeping you as comfortable as possible. Medications were used to bring your condition under control and your discharge instructions will include directions for any medications you should take after leaving the hospital. Please make sure you see your Primary Care Provider as part of your follow up plan. Activity: Resume your previous activity Bathing Comment: Keep IV site dry, can shower with site covered Non-emergency contact: Primary Care Provider and Oncologist Call non-emergency contact if: you have any medication questions, your symptoms worsen and your temperature is above 101 Follow-up/Referrals: Gera Giles MD [Primary Care Provider] - Diet: Carb Consistent or DM2 Addtl Attending Provider Instructions: Please finish out the course of IV ceftriaxone once daily with last dose on 04/03/19. If you notice worsening redness, swelling, or drainage from your previous port site, pleas let your doctor know. Follow up with your PCP and Oncology within 1-2 weeks. Pending Studies at Discharge: Yes (Final Blood cultures) Stand-Alone Forms: My [facility] Medications and DC Order Prescriptions: Continued fluticasone propionate [Flonase Allergy Relief] 50 mcg/actuation [place],Suspension 2 spray INTRANASAL DAILY PRN (Reason: Allergy Symptoms) RF: 0 hydrocortisone 0.5 % Cream 1 applic TOPICAL BID PRN (Reason: Rash) RF: 0 pantoprazole [Protonix] 40 mg Tablet,Delayed Release (Dr/Ec) 40 mg PO DAILY PRN (Reason: During week of Chemo Treatment) RF: 0 metformin 1,000 mg Tablet 1,000 mg PO BID RF: 0 acetaminophen 500 mg Tablet 500 mg PO Q6H PRN (Reason: Fever Or Pain) RF: 0 chlorpromazine 25 mg tablet 25 mg PO TID PRN (Reason: Hiccups) RF: 0 Xarelto 20 mg tablet 20 mg PO DAILY RF: 0 ondansetron HCl [Zofran] 8 mg tablet 8 mg PO Q8H PRN (Reason: Nausea) RF: 0 prochlorperazine maleate [Compazine] 10 mg tablet 10 mg PO Q6H PRN (Reason: Nausea) RF: 0 Discharge Orders: Discharge Order (Routine); Ordered 03/24/19 Ordered By: Isaura Seymour Admission Data Admit Date/Time: 03/19/19 23:05 Attending Provider: Isaura Seymour Admit Provider: Mikki Esparza Primary Care Provider: Gera Giles Other Providers: [facility],Home Healthcare ; Cristofer Meeks ; Carlton Garrido ; Benji Castañeda ; Adarsh Chou
[2019-03-24 15:33] VITALS: BP 105/66; PULSE 93
== END 2019-03-24 16:35 | disposition home health service (06) | DRG 314 ==
LOC: ED 21:13 → SUATTDRO 23:05 → 2S 23:05 → 2W 03-23 17:32

== ENCOUNTER 2019-08-07 12:47 | Inpatient (IN) ==
--- NOTE | 2019-08-07 13:24 | Emergency Department Note ---
Impression & Plan SOB (shortness of breath), Anemia, Dizziness ED Provider Note NAME: LINNEA PRINGLE AGE: 49 SEX: M : 1970 ARRIVES VIA: Walk-In INFORMANT: [Patient] ED PROVIDER(S): [Thomas Martinez MD] CHIEF COMPLAINT: Abnormal labs. HISTORY OF PRESENT ILLNESS: The patient is a 49-year-old male who presents to the ED with about 1 week of fatigue and dizziness. The patient states that when his symptoms first began, he had a cold and low-grade fever, this quickly resolved but the dizziness and lightheadedness has persisted. He notices it mostly with standing, he noticed it after he showered. He feels better sitting down. He does have some exertional shortness of breath with stairs, no chest pain. He states he almost feels faint when he stands, he has no energy. The patient did see his doctor's office today, he was told that his hemoglobin was low, he was sent to the ED. Of note, the patient had his a history of a recent colostomy reversal. This was done 2 months ago. He states he has had a blood transfusion years ago, nothing recent. He has not noticed any blood in the stool or any dark stools. REVIEW OF SYSTEMS: See HPI for pertinent positives and negatives. A total of ten systems were reviewed and were otherwise negative. PMHx/PSHx: See Below SOCIAL HISTORY: See Below. PHYSICAL EXAM: GENERAL: Patient is in no acute distress. HEENT: No acute trauma, normocephalic atraumatic, mucous membranes moist, no nasal congestion, no scleral icterus. NECK: No stridor, no adenopathy, no meningismus, trachea is midline. LUNGS: Clear to auscultation bilaterally, no wheeze, no rhonchi, breath sounds equal. HEART: Without murmurs gallops or rubs, regular rate and rhythm. ABDOMEN: Soft, nontender, bowel sounds positive, no hernias, no peritonitis. EXTREMITIES: No cyanosis or edema, full range of motion of all the joints without pain or difficulty, no signs for acute trauma. NEUROLOGIC: Oriented x 3, no acute motor or sensory deficits, no focal weakness. SKIN: No rash, no jaundice, no diaphoresis. Seems pale. Rectal: Brown stool, trace heme positive. DIFFERENTIAL DIAGNOSIS: Infection, dehydration, metabolic abnormality, hypo/hyperglycemia, electrolyte disturbance, anemia, GI bleeding, hypoxia, cardiac sources, intracerebral event, toxicologic, neurologic, as well as other pathologies. EMERGENCY DEPARTMENT COURSE/PROCEDURES: ECG: Indication was shortness of breath. The EKG shows a normal sinus rhythm with a rate of 76. The QTc is 409. There is no ST elevation, no PVCs. Continuous Cardiac Monitoring: An order was placed for continuous cardiac monitoring. The monitor shows a rate of 84 with normal sinus rhythm. Critical Care Note: I have personally spent greater than 34 minutes of critical care time in the direct management of this patient. This includes bedside care, interpretation of diagnostic studies, and testing, discussion with consultants, patient, and family members, and other required patient management activities. This 34 minutes is in excess of all separately billable procedures. MEDICAL DECISION MAKING: There is no leukocytosis. The patient was quite anemic with a hemoglobin of 6.9. There was a normal platelet count. No coagulopathy. No significant salma ctrolyte abnormality or kidney failure. No liver enzyme elevation. EKG showed a sinus rhythm, no acute ischemia. Cardiac enzyme testing x1 is not consistent with acute cardiac injury. Chest film does not show pneumonia or pneumothorax. Rectal exam showed some brown stool which was trace heme positive. The patient presents with shortness of breath, dizziness and weakness. He is quite anemic. He is in need of a blood transfusion. The patient was typed and crossed, he did sign consent for transfusion. A unit of blood was ordered and started here in the ED. Given the complaints, given the anemia, I do think a hospital stay is warranted. A work-up for his anemia is in order. Certainly, a slow GI bleed is a possibility. Past Med/Surg History Medical History Anemia Colon cancer 02/2018--sx, chemo--metastasized to liver and lymph nodes Diabetes mellitus, type 2 (Acute) GERD (gastroesophageal reflux disease) Hypertension BORDERLINE Prediabetes Seasonal allergies Surgical History History of colonoscopy History of colostomy @ [facility], per pt no colon resection only colostomy History of esophagogastroduodenoscopy (EGD) History of vascular access device Aport on right side--currently receiving chemo treatments History of wisdom tooth extraction Hx of vasectomy Family History Unknown Family history of diabetes mellitus Aunt Family hx of colon cancer Other No family history of adverse response to anesthesia Social History Preferred Language: Serbian Communication Ability: Effective Chain Repairer Required: No Beliefs That Will Affect Care: None Current Living Situation: Spouse and Family Current Living Situation Comment: Lives with and 2 kids Other Information That Helps Us Care for You: No Feels Safe at Home: Yes Safety Concerns: Feels Safe At This Time Smoking Status: Former smoker Do You Dip or Chew Tobacco: No ; Smoking End Date: 1999 ; Second Hand Exposure: No (not today) ; Tobacco Cessation Education Requested by Patient: No Hx Alcohol Use: No Hx Substance Use: No Allergies Allergies Allergy/AdvReac Type Severity Reaction Status Date / Time cetuximab [From Erbitux] Allergy Severe Bronchial Verified 08/07/19 13:42 Spasms Home Meds Home Medications Medication Instructions Recorded Confirmed fluticasone propionate [Flonase 2 spray INTRANASAL DAILY PRN 04/25/18 08/07/19 Allergy Relief] pantoprazole [Protonix] 40 mg PO DAILY PRN 07/22/18 08/07/19 metformin 1,000 mg PO BID 08/02/18 08/07/19 Xarelto 20 mg PO DAILY 03/19/19 08/07/19 Results & Data (ED) Vital Signs Vital Signs - 24 hr 08/07/19 12:51 08/07/19 13:29 08/07/19 13:30 Temperature 36.9 C Temperature Source Oral Pulse Rate 81 81 81 Pulse Rate [Apical] Pulse Rate from SpO2 Sensor Respiratory Rate 18 20 17 Respiratory Effort / Characteristics Respiratory Depth Respiratory Pattern Blood Pressure 122/81 130/75 Blood Pressure [Left Arm] Blood Pressure Mean 94 90 Blood Pressure Mean [Left Arm] Pulse Oximetry 98 98 Oxygen Delivery Method Room Air Room Air Sepsis Recent Fever Within 48 Hours No Sepsis New/Unexplained Change in Mental Status No Sepsis Action Taken by Nursing No Action Required 08/07/19 13:33 08/07/19 14:00 08/07/19 14:01 Temperature Temperature Source Pulse Rate 80 82 81 Pulse Rate [Apical] Pulse Rate from SpO2 Sensor 81 82 Respiratory Rate 19 16 17 Respiratory Effort / Characteristics Respiratory Depth Respiratory Pattern Blood Pressure 130/80 Blood Pressure [Left Arm] Blood Pressure Mean 89 Blood Pressure Mean [Left Arm] Pulse Oximetry 97 97 Oxygen Delivery Method Sepsis Recent Fever Within 48 Hours Sepsis New/Unexplained Change in Mental Status Sepsis Action Taken by Nursing 08/07/19 14:46 08/07/19 14:47 08/07/19 14:49 Temperature 36.7 C Temperature Source Oral Pulse Rate 81 80 87 Pulse Rate [Apical] Pulse Rate from SpO2 Sensor 81 81 Respiratory Rate 15 18 20 Respiratory Effort / Characteristics Respiratory Depth Respiratory Pattern Blood Pressure 131/84 131/84 131/84 Blood Pressure [Left Arm] Blood Pressure Mean 91 99 99 Blood Pressure Mean [Left Arm] Pulse Oximetry 98 100 99 Oxygen Delivery Method Room Air Sepsis Recent Fever Within 48 Hours Sepsis New/Unexplained Change in Mental Status Sepsis Action Taken by Nursing 08/07/19 14:55 08/07/19 15:00 08/07/19 15:01 Temperature 36.7 C 36.8 C Temperature Source Oral Oral Pulse Rate 86 92 H 86 Pulse Rate [Apical] Pulse Rate from SpO2 Sensor 85 91 H 86 Respiratory Rate 24 22 18 Respiratory Effort / Characteristics Respiratory Depth Respiratory Pattern Blood Pressure 133/85 128/79 Blood Pressure [Left Arm] Blood Pressure Mean 92 92 Blood Pressure Mean [Left Arm] Pulse Oximetry 99 99 100 Oxygen Delivery Method Sepsis Recent Fever Within 48 Hours Sepsis New/Unexplained Change in Mental Status Sepsis Action Taken by Nursing 08/07/19 15:02 08/07/19 15:05 08/07/19 15:10 Temperature 36.8 C 36.7 C Temperature Source Oral Oral Pulse Rate 86 87 Pulse Rate [Apical] 88 Pulse Rate from SpO2 Sensor 86 Respiratory Rate 20 20 18 Respiratory Effort / Characteristics Non-Labored Spontaneous Respiratory Depth Normal Respiratory Pattern Regular Blood Pressure 130/75 137/82 Blood Pressure [Left Arm] 128/79 Blood Pressure Mean 101 100 Blood Pressure Mean [Left Arm] 95 Pulse Oximetry 98 99 99 Oxygen Delivery Method Room Air Sepsis Recent Fever Within 48 Hours Sepsis New/Unexplained Change in Mental Status Sepsis Action Taken by Nursing 08/07/19 15:12 08/07/19 15:27 Temperature 36.7 C 36.7 C Temperature Source Oral Oral Pulse Rate 84 83 Pulse Rate [Apical] Pulse Rate from SpO2 Sensor Respiratory Rate 20 18 Respiratory Effort / Characteristics Respiratory Depth Respiratory Pattern Blood Pressure 137/82 127/76 Blood Pressure [Left Arm] Blood Pressure Mean 100 93 Blood Pressure Mean [Left Arm] Pulse Oximetry 99 100 Oxygen Delivery Method Sepsis Recent Fever Within 48 Hours Sepsis New/Unexplained Change in Mental Status Sepsis Action Taken by [facility] Medications Current Medication List: was personally reviewed by me Laboratory Data Attestation: I reviewed the patient's lab results. Result diagrams: 08/07/19 13:34 08/07/19 13:34 Lab Results 08/07/19 08/07/19 08/07/19 Range/Units 13:34 13:34 13:34 WBC 6.96 (4.8-10.8) K/uL RBC 3.94 L (4.7-6.1) M/uL Hgb 6.9 L* (14.0-18.0) g/dL Hct 25.6 L (42-52) % MCV 65.0 L (80-100) fL MCH 17.5 L (25-34) pg MCHC 27.0 L (32-36) g/dL RDW Std Deviation 41.7 (36.4-46.3) fL RDW Coeff of Bulmaro 17.9 H (11.5-14.5) % Plt Count 264 (130-400) K/uL MPV 10.3 (7.4-10.4) fL Immature Gran % (Auto) 0.9 % Neut % (Auto) 70.1 % Lymph % (Auto) 21.8 % Miller % (Auto) 5.7 % Eos % (Auto) 0.9 % Baso % (Auto) 0.6 % Immature Gran # (Auto) 0.06 H (0.00-0.02) K/uL Neut # (Auto) 4.88 (1.4-6.5) K/uL Lymph # (Auto) 1.52 (1.2-3.4) K/uL Miller # (Auto) 0.40 (0.11-0.59) K/uL Eos # (Auto) 0.06 (0-0.5) K/uL Baso # (Auto) 0.04 (0-0.2) K/uL Hypochromasia Present Microcytosis Present Ovalocytes 1+ PT (9.0-12.0) Seconds INR (0.9-1.1) APTT (21.0-31.0) Seconds PTT Ratio Sodium 140 (136-145) mmol/L Potassium 3.8 (3.5-5.1) mmol/L Chloride 107 (98-107) mmol/L Carbon Dioxide 26 (21-32) mmol/L Anion Gap 7.0 (3-11) BUN 13 (7-18) mg/dl Creatinine 1.07 (0.6-1.4) mg/dl Est Cr Clr Drug Dosing 96.2 ml/min Est GFR ( Amer) 92.7 Est GFR (Non-Af Amer) 80.0 BUN/Creatinine Ratio 12.1 (10-20) Glucose 103 H (70-99) mg/dl Calcium 8.8 (8.5-10.1) mg/dl Magnesium 1.9 (1.8-2.4) mg/dl Total Bilirubin 0.3 (0.2-1) mg/dl AST 6 L (15-37) U/L ALT 12 (12-78) U/L Alkaline Phosphatase 85 (45-117) U/L Troponin I < 0.015 (0-0.045) ng/ml Total Protein 6.8 (6.4-8.2) gm/dl Albumin 3.0 L (3.4-5.0) gm/dl Globulin 3.8 (2.5-4.0) gm/dl Albumin/Globulin Ratio 0.8 L (0.9-2) Blood Type O Positive Antibody Screen NEGATIVE Crossmatch See Detail 08/07/19 Range/Units 13:34 WBC (4.8-10.8) K/uL RBC (4.7-6.1) M/uL Hgb (14.0-18.0) g/dL Hct (42-52) % MCV (80-100) fL MCH (25-34) pg MCHC (32-36) g/dL RDW Std Deviation (36.4-46.3) fL RDW Coeff of [place]mar[place] (11.5-14.5) % Plt Count (130-400) K/uL MPV (7.4-10.4) fL Immature Gran % (Auto) % Neut % (Auto) % Lymph % (Auto) % Miller % (Auto) % Eos % (Auto) % Baso % (Auto) % Immature Gran # (Auto) (0.00-0.02) K/uL Neut # (Auto) (1.4-6.5) K/uL Lymph # (Auto) (1.2-3.4) K/uL Miller # (Auto) (0.11-0.59) K/uL Eos # (Auto) (0-0.5) K/uL Baso # (Auto) (0-0.2) K/uL Hypochromasia Microcytosis Ovalocytes PT 11.9 (9.0-12.0) Seconds INR 1.1 (0.9-1.1) APTT 28.4 (21.0-31.0) Seconds PTT Ratio 1.0 Sodium (136-145) mmol/L Potassium (3.5-5.1) mmol/L Chloride (98-107) mmol/L Carbon Dioxide (21-32) mmol/L Anion Gap (3-11) BUN (7-18) mg/dl Creatinine (0.6-1.4) mg/dl Est Cr Clr Drug Dosing ml/min Est GFR ( Amer) Est GFR (Non-Af Amer) BUN/Creatinine Ratio (10-20) Glucose (70-99) mg/dl Calcium (8.5-10.1) mg/dl Magnesium (1.8-2.4) mg/dl Total Bilirubin (0.2-1) mg/dl AST (15-37) U/L ALT (12-78) U/L Alkaline Phosphatase (45-117) U/L Troponin I (0-0.045) ng/ml Total Protein (6.4-8.2) gm/dl Albumin (3.4-5.0) gm/dl Globulin (2.5-4.0) gm/dl Albumin/Globulin Ratio (0.9-2) Blood Type Antibody Screen Crossmatch Imaging Data Radiologist's Impression: XR chest 1V portable HISTORY: 49 years-old Male sob acute shortness of breath COMPARISON: Chest radiograph 03/19/2019 TECHNIQUE: Portable AP view of the chest FINDINGS: Cardiac mediastinal and hilar silhouettes are unchanged. The previously described 8 mm nodular density of the left lung base is not identified on today's study. No pneumothorax, pleural effusion, airspace consolidation or overt pulmonary edema. Right IJ Fihtfd-t-Etpy catheter is unchanged. Surgical clips project over the abdominal right upper quadrant. The bones appear grossly intact. IMPRESSION: No acute process. Blood Pressure Blood Pressure Findings: Elevated blood pressure Blood Pressure Disposition: further management by hospitalist Discharge Plan Visit Data Chief Complaint: Abnormal Labs/Diagnostic Testing Stated Complaint: ANEMIC, REF'D BY DOC ED Provider: Thomas Martinez Discharge Problem: SOB (shortness of breath), Anemia, Dizziness Patient Disposition: Being Evaluated by Hospitalist Condition: Good Discharge Instructions Interventions: ED Discharge Assessment Last Done: 08/07/19 15:21 Forms Stand Alone Forms: My [facility] [employer] Prescriptions Prescriptions: No Action fluticasone propionate [Flonase Allergy Relief] 50 mcg/actuation [place],Suspension 2 spray INTRANASAL DAILY PRN (Reason: Allergy Symptoms) RF: 0 pantoprazole [Protonix] 40 mg Tablet,Delayed Release (Dr/Ec) 40 mg PO DAILY PRN (Reason: During week of Chemo Treatment) RF: 0 metformin 1,000 mg Tablet 1,000 mg PO BID RF: 0 Xarelto 20 mg tablet 20 mg PO DAILY RF: 0 Referrals Referrals: Gera Giles MD [Primary Care Provider] - Discharge Problem: Anemia Qualifiers: Anemia type: unspecified type Qualified Code(s): D64.9 - Anemia, unspecified
--- NOTE | 2019-08-07 13:33 | XRay Report ---
XR chest 1V portable HISTORY: 49 years-old Male sob acute shortness of breath COMPARISON: Chest radiograph 03/19/2019 TECHNIQUE: Portable AP view of the chest FINDINGS: Cardiac mediastinal and hilar silhouettes are unchanged. The previously described 8 mm nodular densit y of the left lung base is not identified on today's study. No pneumothorax, pleural effusion, airspa ce consolidation or overt pulmonary edema. Right IJ Vwhozi-h-Vvgc catheter is unchanged. Surgical cli ps project over the abdominal right upper quadrant. The bones appear grossly intact. IMPRESSION: No acute process. ACT 112: Negative or not required by law. The above report was generated using voice recognition software. It may contain grammatical, syntax o r spelling errors. Electronically signed by: Darci Castellanos M.D. 08/07/2019 1:31 PM
[2019-08-07 13:53] LABS: Hematocrit (blood only) 25.6 % (42-52); Hemoglobin 6.9 g/dL (14.0-18.0); Mean Corpuscular Hemoglobin 17.5 pg (25-34); Mean Platelet Volume 10.3 fL (7.4-10.4); Platelet Count 264 K/uL (130-400); RDW Coefficient of Variation 17.9 % (11.5-14.5); RDW Standard Deviation 41.7 fL (36.4-46.3); Red Blood Count 3.94 M/uL (4.7-6.1); White Blood Count 6.96 K/uL (4.8-10.8)
[2019-08-07 13:58] LABS: INR 1.1 (0.9-1.1); Partial Thromboplastin Time 28.4 Seconds (21.0-31.0); Prothrombin Time 11.9 Seconds (9.0-12.0)
[2019-08-07] MEDS ORDERED: SODIUM CHLORIDE 0.9% 250 ML IV PRN ×2 (14:02→14:11)
[2019-08-07 14:06] LABS: Basophils # (auto) 0.04 K/uL (0-0.2); Basophils % (auto) 0.6 %; Eosinophils # (auto) 0.06 K/uL (0-0.5); Eosinophils % (auto) 0.9 %; Hypochromasia Present; Immature Granulocytes # (auto) 0.06 K/uL (0.00-0.02); Immature Granulocytes % (auto) 0.9 %; Lymphocytes # (auto) 1.52 K/uL (1.2-3.4); Lymphocytes % (auto) 21.8 %; Microcytosis Present; Monocytes % (auto) 5.7 %; Neutrophils # (auto) 4.88 K/uL (1.4-6.5); Neutrophils % (auto) 70.1 %; Ovalocytes 1+
[2019-08-07 14:07] LABS: Alanine Aminotransferase 12 U/L (12-78); Aspartate Aminotransferase 6 U/L (15-37); BUN Creatinine Ratio 12.1 (10-20); Blood Urea Nitrogen 13 mg/dl (7-18); Calcium 8.8 mg/dl (8.5-10.1); Carbon Dioxide 26 mmol/L (21-32); Chloride 107 mmol/L (98-107); Creatinine Clr Calc Pharmacy 96.2 ml/min; Est GFR (African American) 92.7; Glucose 103 mg/dl (70-99); Magnesium 1.9 mg/dl (1.8-2.4); Potassium 3.8 mmol/L (3.5-5.1); Sodium 140 mmol/L (136-145)
[2019-08-07 14:12] LABS: Albumin Globulin Ratio 0.8 (0.9-2); Alkaline Phosphatase 85 U/L (45-117); Bilirubin,Total 0.3 mg/dl (0.2-1); Globulin 3.8 gm/dl (2.5-4.0); Total Protein 6.8 gm/dl (6.4-8.2); Troponin I < 0.015 ng/ml (0-0.045)
--- NOTE | 2019-08-07 15:01 | Electrocardiogram Report ---
Test Reason : Blood Pressure : / mmHG Vent. Rate : 076 BPM Atrial Rate : 076 BPM P-R Int : 164 ms QRS Dur : 088 ms QT Int : 364 ms P-R-T Axes : 029 041 041 degrees QTc Int : 409 ms Normal sinus rhythm Poor R wave progression, consider anterior DE vs. lead placement vs. LVH Abnormal ECG When compared with ECG of 19-MAR-2019 22:28, No significant change was found Confirmed by Nam Mcclelland ([id number]) on 08/07/2019 3:01:45 PM Referred By: REFERRED SELF Confirmed By:Nam Mcclelland
[2019-08-07] MEDS ORDERED: FLUTICASONE PROPIONATE NA SPR 16 GM BTL PRN (16:08)
[2019-08-07] MEDS ORDERED: ONDANSETRON INJ 2 MG/ML 2 ML VIAL IV PRN (16:08)
[2019-08-07] MEDS ORDERED: ACETAMINOPHEN 325 MG TAB PO PRN (16:08)
--- NOTE | 2019-08-07 18:07 | History & Physical Report ---
Date of Service August 07, 2019 Assessment & Plan (1) Anemia: likely secondary to acute blood loss Hgb 6.9 on admission with trace guaiac blood in ED, no gracia blood or melena Given 1 unit prbcs in ED, repeat cbc am Protonix po bid NPO Consult GI (2) Diabetes mellitus: hold metformin bsgs ac & hs (3) GERD (gastroesophageal reflux disease): Pantoprazole as above (4) History of pulmonary embolism: PE was diagnosed almost a year ago Hold xeralto for anemia likely secondary to acute blood loss Admission and Anticipated Discharge Date Admission Date: August 07, 2019 History of Present Illness Mr. Santamaria presents today for anemia. He had been experiencing lightheadedness since Sunday with accompanying fatigue and sob. He had a mild temperature of 100.1 but no fever since Sunday. No n/v/d, no abdominal pain. He denies any blood in his stool. No cough. No sick contacts. 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 [employer] Primary Care Provider: Gera Giles MD Allergies Allergy/AdvReac Type Severity Reaction Status Date / Time cetuximab [From Erbitux] Allergy Severe Bronchial Verified 08/07/19 13:42 Spasms Home Medications Home Medications Medication Instructions Recorded Confirmed Type fluticasone propionate [Flonase 2 spray INTRANASAL DAILY PRN 04/25/18 08/07/19 History Allergy Relief] pantoprazole [Protonix] 40 mg PO DAILY PRN 07/22/18 08/07/19 History metformin 1,000 mg PO BID 08/02/18 08/07/19 History Xarelto 20 mg PO DAILY 03/19/19 08/07/19 History Past Med/Surg History Family History Unknown Family history of diabetes mellitus Aunt Family hx of colon cancer Other No family history of adverse response to anesthesia Social History Preferred Language: Bahraini Communication Ability: Effective Background Investigator Required: No Beliefs That Will Affect Care: None Current Living Situation: Spouse and Family Current Living Situation Comment: Lives with and 2 kids Other Information That Helps Us Care for You: No Feels Safe at Home: Yes Safety Concerns: Feels Safe At This Time Smoking Status: Former smoker Do You Dip or Chew Tobacco: No ; Smoking End Date: 1999 ; Second Hand Exposure: No (not today) ; Tobacco Cessation Education Requested by Patient: No Hx Alcohol Use: No Hx Substance Use: No Review of Systems Review of Systems: All systems reviewed & are unremarkable except as noted in HPI & below Physical Exam Physical Exam: General: no distress Eyes: normal inspection, PERLL Respiratory: chest non tender, clear to auscultation, normal breath sounds, no r espiratory distress, no accessory muscle use Cardiac: regular rate and rhythm, no rub or gallop, no murmur, no edema, no jvd GI/: active bowel sounds, no abd pain or tenderness, soft, non distended Extremities: normal range of motion, normal strength, non tender Neuro:alert, moves all extremities Psych: oriented x 3, normal mood and affect Skin: normal color, dry Results & Data Results & Data ([facility]) Vital Signs (Past 12 Hours) Vital Signs Temp Pulse Pulse Resp BP BP Pulse Ox 08/07/19 16:57 37.2 C 81 127/80 98 08/07/19 16:53 82 08/07/19 15:57 37 C 77 18 126/83 99 08/07/19 15:27 36.7 C 83 18 127/76 100 08/07/19 15:12 36.7 C 84 20 137/82 99 08/07/19 15:10 36.7 C 87 18 137/82 99 08/07/19 15:05 36.8 C 86 20 130/75 99 08/07/19 15:02 88 20 128/79 98 08/07/19 15:01 86 18 100 08/07/19 15:00 36.8 C 92 H 22 128/79 99 08/07/19 14:55 36.7 C 86 24 133/85 99 08/07/19 14:49 36.7 C 87 20 131/84 99 08/07/19 14:47 80 18 131/84 100 08/07/19 14:46 81 15 131/84 98 08/07/19 14:01 81 17 97 08/07/19 14:00 82 16 130/80 97 08/07/19 13:33 80 19 08/07/19 13:30 81 17 130/75 08/07/19 13:29 81 20 98 08/07/19 12:51 36.9 C 81 18 122/81 98 Code Status & VTE Plan VTE Prophylaxis Plan VTE Prophylaxis will be ordered: Yes Supervising Physician Co-Signing Physician Notes Patient seen and examined with Daly ROLON. I agree with her exam findings, review of systems, assessment and plan. I personally reviewed the lab work and imaging as well. patient with h/o anemia, today it is 6.9, microcytic he denies any dark stools or bloody stools, no epigastric pain had colostomy reversed in May 2019, he says that his stools have been brown, soft, form, no watery stools at all he had a fever for 48 hours this past weekend, 7 days ago, he was fatigued as well no one else was sick, he has been self quarantined in his home, his goes to the grocery store but otherwise they don't go out no known contact with anyone with COVID 19 he has felt really well the past 5 days up until admission when he started to be short of breath, attributed to the anemia - Symptomatic anemia, Hb of 6.9, microcytic transfuse one unit, repeat Hb in the morning check iron studies due to the MCV in the 60's NPO after midnight, consult [facility] GI Protonix BID possible EGD tomorrow unsure if it is safe to perform colonoscopy since he is only 2-3 months out from re-anastamosis of colon PG Care Time/CCT Total # of Minutes Spent Total Time Spent with Patient: Total time spent is greater than 50% in coordination of care (as documented) at patient's floor/unit and/or counseling patient: Coding Level of Care Code 82330 Initial Inpt Care Lvl 3 Diagnoses Anemia D64.9 Anemia type: unspecified type Diabetes mellitus E11.9 Diabetes mellitus complication status: without complication Diabetes mellitus senior living insulin use: without exterminator termite use Diabetes mellitus type: type 2 GERD (gastroesophageal reflux disease) K21.9 History of pulmonary embolism Z86.711 (1) Diabetes mellitus Diabetes mellitus complication status: without complication Diabetes mellitus senior living insulin use: without senior living use Diabetes mellitus type: type 2 Qualified Code(s): E11.9 - Type 2 diabetes mellitus without complications (2) Anemia Anemia type: unspecified type Qualified Code(s): D64.9 - Anemia, unspecified
[2019-08-07] MEDS: PANTOprazole 40 MG TAB PO SCH (20:11)
[2019-08-08 06:03] LABS: Hematocrit (blood only) 28.1 % (42-52); Hemoglobin 7.8 g/dL (14.0-18.0); Mean Corpuscular Hemoglobin 18.6 pg (25-34); Mean Corpuscular Hgb Conc 27.8 g/dL (32-36); Mean Corpuscular Volume 66.9 fL (80-100); Mean Platelet Volume 10.3 fL (7.4-10.4); Platelet Count 264 K/uL (130-400); RDW Coefficient of Variation 19.3 % (11.5-14.5); RDW Standard Deviation 46.5 fL (36.4-46.3); White Blood Count 6.03 K/uL (4.8-10.8)
[2019-08-08 06:34] LABS: BUN Creatinine Ratio 9.8 (10-20); Calcium 8.7 mg/dl (8.5-10.1); Creatinine Clr Calc Pharmacy 94.6 ml/min; Est GFR (African American) 92.7
[2019-08-08 06:38] LABS: Ferritin 6.2 ng/ml (8-388)
[2019-08-08] MEDS: PANTOprazole 40 MG TAB PO SCH ×2 (08:02→21:07)
[2019-08-08] MEDS: IRON SUCROSE 200 MG in 0.9 % SODIUM CHLORIDE 100 ML IV SCH (09:42)
[2019-08-08] MEDS ORDERED: SODIUM CHLORIDE 0.9% 1000ML 1,000 ML IV SCH (11:15)
--- NOTE | 2019-08-08 13:36 | Hospitalist Progress Note ---
Date of Service August 08, 2019 Assessment & Plan (1) Anemia: likely secondary to acute blood loss Hgb 6.9 on admission with trace guaiac blood in ED, no gracia blood or melena Given 1 unit prbcs in ED Iron and ferritin low on lab check, will give IV venofer 200 mg x 5 days - will need to complete this outpatient Protonix po bid NPO Consulted GI - will have endoscopy today (2) Diabetes mellitus: hold metformin bsgs ac & hs (3) GERD (gastroesophageal reflux disease): Pantoprazole as above (4) History of pulmonary embolism: PE was diagnosed almost a year ago Hold xeralto for anemia likely secondary to acute blood loss Admission and Anticipated Discharge Date Admission Date: August 07, 2019 Subjective Mr. Santamaria has no complaints today. No dizziness or fatigue but has only been getting up and down to the bathroom. No obvious s/s of bleeding. ROS Constitutional: no chills, aches, sweats or fever Respiratory: no sob,cough, sputum, or wheezing Cardiac: no chest pain, palpitations, edema, orthopnea or lightheadedness GI: no abdominal pain, nausea, vomiting, diarrhea or constipation : no dysuria or hesitancy Extremities: no joint pain or weakness Skin: no rash All other systems reviewed and negative Physical Exam Physical Exam: General: no distress Eyes: normal inspection, PERLL Respiratory: chest non tender, clear to auscultation, normal breath sounds, no respiratory distress, no accessory muscle use Cardiac: regular rate and rhythm, no rub or gallop, no murmur, no edema, no jvd GI/: active bowel sounds, no abd pain or tenderness, soft, non distended Extremities: normal range of motion, normal strength, non tender Neuro:alert, moves all extremities Psych: oriented x 3, normal mood and affect Skin: normal color, dry Results & Data Results & Data ([facility]) Vital Signs (Past 12 Hours) Vital Signs Temp Pulse Pulse Resp BP BP Pulse Ox 08/08/19 13:11 36.5 C 69 16 108/73 96 08/08/19 11:11 36.5 C 74 18 121/79 97 08/08/19 08:20 64 08/08/19 07:08 36.7 C 64 18 110/72 99 08/08/19 03:07 36.8 C 68 20 110/70 99 PG Care Time/CCT Total # of Minutes Spent Total Time Spent with Patient: Total time spent is greater than 50% in coordination of care (as documented) at patient's floor/unit and/or counseling patient: Coding Level of Care Code 97292 Subseq Hosp Care Lvl 2 Diagnoses Anemia D64.9 Anemia type: unspecified type Diabetes mellitus E11.9 Diabetes mellitus complication status: without complication Diabetes mellitus fci insulin use: without termite inspector use Diabetes mellitus type: type 2 GERD (gastroesophageal reflux disease) K21.9 History of pulmonary embolism Z86.711 (1) Diabetes mellitus Diabetes mellitus complication status: without complication Diabetes mellitus termite inspector insulin use: without fci use Diabetes mellitus type: type 2 Qualified Code(s): E11.9 - Type 2 diabetes mellitus without complications (2) Anemia Anemia type: unspecified type Qualified Code(s): D64.9 - Anemia, unspecified
[2019-08-08] MEDS ORDERED: LIDOCAINE HCL 2% 2 ML VIAL/AMP(20MG/ML) INFIL ONE (13:48)
[2019-08-08] MEDS ORDERED: PROPOFOL IV EMULSION 10 MG/ML 20 ML VIAL IV ONE (13:48)
--- NOTE | 2019-08-08 13:49 | Anesthesiology Consultation ---
Date of Service August 08, 2019 Assessment & Plan (1) Encounter for pre-operative examination: Chart Review Chart Review: Acceptable Risk for Surgery Consults Requested none ASA ASA3 Proposed Anesthesia Anesthesia Type: MAC Risk / Benefits Reviewed With: PT / POA / Parent / Guardian, Accepts Plan and Informed Consent Obtained History Surgery Operation Date: 08/08/19 16:00 Proposed Procedures p Esophagogastroduodenoscopy Dr Gomez - Moo Gomez Height/Weight Height: 5 ft 10 in Weight: 95.3 kg Allergies Allergy/AdvReac Type Severity Reaction Status Date / Time cetuximab [From Erbitux] Allergy Severe Bronchial Verified 08/07/19 13:42 Spasms Medications Home Medications Medication Instructions Recorded Confirmed Last Taken fluticasone propionate [Flonase 2 spray INTRANASAL DAILY PRN 04/25/18 08/07/19 07/31/18 Allergy Relief] pantoprazole [Protonix] 40 mg PO DAILY PRN 07/22/18 08/07/19 03/19/19 metformin 1,000 mg PO BID 08/02/18 08/07/19 08/07/19 Xarelto 20 mg PO DAILY 03/19/19 08/07/19 03/19/19 Active Medications Generic Name Dose Route Start Last Admin Trade Name Freq PRN Reason Stop Dose Admin Iron Sucrose 200 mg/ Sodium 110 mls @ 220 mls/hr 08/08/19 09:00 08/08/19 1 0:12 Chloride IV 08/12/19 09:29 Infused DAILY DOMINGO Infusion Sodium Chloride 1,000 mls @ 125 mls/hr 08/08/19 11:15 08/08/19 12:15 Nss 1000ml IV 08/09/19 03:14 0 mls/hr .Q8H DOMINGO Infusion Pantoprazole Sodium 40 mg 08/07/19 21:00 08/08/19 08:02 Protonix PO 08/11/19 09:01 40 mg BID DOMINGO Administration NPO Date Last Intake of Fluids: 08/08/19 Time Last Intake of Fluids: 08:00 Date Last Intake of Solids: 08/07/19 Time Last Intake of Solids: 18:00 Past Medical History Medical History Anemia Colon cancer 02/2018--sx, chemo--metastasized to liver and lymph nodes Diabetes mellitus, type 2 (Acute) GERD (gastroesophageal reflux disease) Hypertension BORDERLINE Prediabetes Seasonal allergies Exercise / Class Metabolic Activity II 4-5 Yardwork/Stairs/Walk up hill Past Family History Family History Unknown Family history of diabetes mellitus Aunt Family hx of colon cancer Other No family history of adverse response to anesthesia Past Surgical History Surgical History History of colonoscopy History of colostomy @ C, per pt no colon resection only colostomy History of esophagogastroduodenoscopy (EGD) History of vascular access device Aport on right side--currently receiving chemo treatments History of wisdom tooth extraction Hx of vasectomy Past Anesthesia History No Hx of Anesthesia Complications and No Family Hx of Anesthesia Complications History of PONV No Hx of PONV and No Hx of Motion Sickness Social History Smoking Status: Former smoker Do You Dip or Chew Tobacco: No Smoking End Date: 1999 Hx Alcohol Use: No Alcohol type: beer alcohol intake frequency: a few times a week Hx Substance Use: No substance use type: does not use Physical Exam Vital Signs Last Vital Signs Temp 97.7 F 08/08/19 13:11 Pulse 69 08/08/19 13:11 Resp 16 08/08/19 13:11 BP 108/73 08/08/19 13:11 Pulse Ox 96 08/08/19 13:11 ENMT Mouth: no dentition abnormality Thyromental Distance: > or= 3.5 Finger Breadths Mallampati Class: II Neck normal visual inspection Respiratory normal respiratory effort Auscultation: lungs clear to auscultation bilaterally Cardiovascular Rate/Rhythm: regular rate and regular rhythm Testing Laboratory Results 08/08/19 05:28 08/08/19 05:28 PT 11.9 Seconds (9.0-12.0) 08/07/19 13:34 INR 1.1 (0.9-1.1) 08/07/19 13:34 APTT 28.4 Seconds (21.0-31.0) 08/07/19 13:34 Blood Type O Positive 08/07/19 13:34 Antibody Screen NEGATIVE 08/07/19 13:34 08/08/19 11:34 POC Glucose 104 H
--- NOTE | 2019-08-08 14:00 | Gastrointestinal Consultation ---
Date of Consultation August 08, 2019 Assessment & Plan (1) Anemia: FE def anemia Heme pos stool Plan EGD to look for UGI tract reasons for etiology. On xarelto and cannot do therapetics but rather than waiting until sunday will proceed with EGD today. Proc and risks explained to patient which include but not limied to med reaction, bleeding, perforation, and aspiration. History of Present Illness Reason for Consultation: anemia,heme pos stool Requesting Physician: Dr Davi Kumari Attending Physician: Davi Kumari, DO History of Present Illness Cc weakness HPI Pt wth hx of CRC with liver mets s/p resection. He had reversal of colostomy and liver nodule resection 05/2019. Most recent H and H noted in [facility] EMR 8.6 on 06/05/19. Pt is on Xarelto. He has not noted any bloody nor black stools but for last week or so weak and short of breath. PCP as outpt ordered CBC with hgb noted to be low and in hospital 6.9. Post transfusion Hgb 8.6 today. Most recent colonosocpy in chart 08/02/[address] Powell poor prep diverticulosis of sigmoid and transverse colon. In ER this admit stool brown but trace heme positive. CMP ok PT/PTT ok. NO abd imaging. CXR neg. He denies abd pain. Allergies Allergy/AdvReac Type Severity Reaction Status Date / Time cetuximab [From Erbitux] Allergy Severe Bronchial Verified 08/07/19 13:42 Spasms Home Medications Home Medications Medication Instructions Recorded Confirmed Type fluticasone propionate [Flonase 2 spray INTRANASAL DAILY PRN 04/25/18 08/07/19 History Allergy Relief] pantoprazole [Protonix] 40 mg PO DAILY PRN 07/22/18 08/07/19 History metformin 1,000 mg PO BID 08/02/18 08/07/19 History Xarelto 20 mg PO DAILY 03/19/19 08/07/19 History Patient History Medical History Anemia Colon cancer 02/2018--sx, chemo--metastasized to liver and lymph nodes Diabetes mellitus, type 2 (Acute) GERD (gastroesophageal reflux disease) Hypertension BORDERLINE Prediabetes Seasonal allergies Surgical History History of colonoscopy History of colostomy @ C, per pt no colon resection only colostomy History of esophagogastroduodenoscopy (EGD) History of vascular access device Aport on right side--currently receiving chemo treatments History of wisdom tooth extraction Hx of vasectomy Family History Unknown Family history of diabetes mellitus Aunt Family hx of colon cancer Other No family history of adverse response to anesthesia Social History Preferred Language: Setswana Communication Ability: Effective Emergency Room Physician Required: No Beliefs That Will Affect Care: None marital status: Current Living Situation: Spouse and Family Current Living Situation Comment: Lives with and 2 kids Other Information That Helps Us Care for You: No Feels Safe at Home: Yes Safety Concerns: Feels Safe At This Time Smoking Status: Former smoker Do You Dip or Chew Tobacco: No ; Smoking End Date: 1999 ; Second Hand Exposure: No (not today) ; Tobacco Cessation Education Requested by Patient: No Hx Alcohol Use: No Hx Substance Use: No Review of Systems Review of Systems: All systems reviewed & are unremarkable except as noted in HPI & below Physical Exam Constitutional: WD/WN, vitals as above Eyes: PERRL, conjunctivae normal, anicteric sclerae ENMT: external ear and nose normal, oropharynx normal Neck: normal visual inspection and trachea midline Respiratory: normal respiratory effort, lungs clear to auscultation Cardiovascular: RRR, no murmur, no edema Gastrointestinal (Abdomen): normal bowel sounds, soft, nontender, no hepatosplenomegaly Neurologic: PERRL, EOMI, accommodation nl, no face palsy, no dysarthria Psychiatric: A+Ox3, euthymic affect Results & Data ([facility]) Vital Signs (Past 12 Hours) Vital Signs Temp Pulse Pulse Resp BP BP Pulse Ox 08/08/19 13:11 36.5 C 69 16 108/73 96 08/08/19 11:11 36.5 C 74 18 121/79 97 08/08/19 08:20 64 08/08/19 07:08 36.7 C 64 18 110/72 99 08/08/19 03:07 36.8 C 68 20 110/70 99 (1) Anemia Anemia type: unspecified type Qualified Code(s): D64.9 - Anemia, unspecified
--- NOTE | 2019-08-08 14:18 | Post Operative Brief Note ---
Immediate Post Op Note v1 Date of Surgery August 08, 2019 Pre & Post Diagnosis Operation Date: 08/08/19 16:00 Pre-Op Diagnosis: SYMPTOMATIC ANEMIA Post-Op Diagnosis: hiatal hernia I identified the patient and participated in the time-out.: Yes Procedure Operation Date: 08/08/19 16:00 Actual Procedures p Esophagogastroduodenoscopy - Moo Gomez Surgeon Moo Gomez Glazing Superintendent see formal report Estimated Blood Loss 0 Findings See Below Probable Barretts esophagus but patient was on xarelto so no biopsiees done. Z line 41 cm, 3 cm HH. No mucosal pathology. Recommend colonoscopy outpt vs inpatient. Clear liquids for now.
--- NOTE | 2019-08-08 14:25 | GI REPORT ---
Patient Name: Naun Santamaria Procedure Date: 08/08/2019 2:07 PM Date of : 1970 Admit Type: Inpatient Age: 49 Gender: Male Attending MD: Moo Gomez MD Procedure: Upper GI endoscopy Providers: Moo Gomez MD Referring MD: Referred Self Indications: Iron deficiency anemia, Heme positive stool Medicines: Monitored Anesthesia Care Complications: No immediate complications. Estimated blood loss: None. Estimated Blood Loss: Estimated blood loss: none. Procedure: Pre-Anesthesia Assessment: - The risks and benefits of the procedure and the sedation options and risks were discussed with the patient. All questions were answered and informed consent was obtained. - Patient identification and proposed procedure were verified prior to the procedure by the physician, the nurse and the yard conductor. [Verification]. After obtaining informed consent, the endoscope was passed under direct vision. Throughout the procedure, the patient's blood pressure, pulse, and oxygen saturations were monitored continuously. The Endoscope was introduced through the mouth, and advanced to the second part of duodenum. The upper GI endoscopy was accomplished without difficulty. The patient tolerated the procedure well. Procedure and risks explained to patient which include but not limited to medication reaction, bleeding, perforation, aspiration , and missed lesions. Judicious gas insufflation was used and gas removal done on the way out. The lumen was always visualized when advancing the scope. Prep was good. Washes and suctioning used as needed to get good visualization of the mucosa. Retroflexion to look at the fundus and cardia of the stomach and GE junction was done. Findings: A 3 cm hiatal hernia was present. There were esophageal mucosal changes suspicious for short-segment Valencia's esophagus present in the lower third of the esophagus. The stomach was normal. The examined duodenum was normal. The exam was otherwise without abnormality. Impression: - 3 cm hiatal hernia. - Esophageal mucosal changes suspicious for short-segment Valencia's esophagus. - Normal stomach. - Normal examined duodenum. - No specimens collected. Recommendation: - [facility] for [facility]. - Recommend repeat elective EGD off Xarelto long enough to do biopsies. For further workup of anemia and heme pos stool recommend colonoscopy. Moo Gomez M.D. Moo Gomze MD 08/08/2019 2:25:46 PM This report has been signed electronically. Note Initiated On: 08/08/2019 2:07 PM Number of Addenda: 0 I attest to the content of the Intraoperative Record and orders documented therein, exceptions below {[id number]}
--- NOTE | 2019-08-08 14:52 | Anesthesiology Progress Note ---
Date of Service August 08, 2019 Anesthesia Post Procedure Vital Signs Vital Signs: Temp Pulse Pulse Pulse Resp BP BP 08/08/19 14:44 66 16 08/08/19 14:29 71 16 08/08/19 14:14 66 16 08/08/19 13:11 97.7 F 69 16 08/08/19 11:11 97.7 F 74 18 121/79 08/08/19 08:20 64 08/08/19 07:08 98.1 F 64 18 08/08/19 03:07 98.2 F 68 20 08/08/19 01:25 73 08/07/19 23:13 97.9 F 71 18 08/07/19 19:28 98.6 F 78 18 08/07/19 18:20 98.6 F 80 20 128/81 08/07/19 18:12 98.8 F 78 20 130/79 08/07/19 16:57 99.0 F 81 127/80 08/07/19 16:53 82 08/07/19 15:57 98.6 F 77 18 126/83 08/07/19 15:27 98.1 F 83 18 127/76 08/07/19 15:12 98.1 F 84 20 137/82 08/07/19 15:10 98.1 F 87 18 137/82 08/07/19 15:05 98.2 F 86 20 130/75 08/07/19 15:02 88 20 128/79 08/07/19 15:01 86 18 08/07/19 15:00 98.2 F 92 H 22 128/79 08/07/19 14:55 98.1 F 86 24 133/85 BP Pulse Ox 08/08/19 14:44 101/58 L 97 08/08/19 14:29 98/59 L 98 08/08/19 14:14 100/57 L 99 08/08/19 13:11 108/73 96 08/08/19 11:11 97 08/08/19 08:20 08/08/19 07:08 110/72 99 08/08/19 03:07 110/70 99 08/08/19 01:25 08/07/19 23:13 126/73 94 08/07/19 19:28 123/77 97 08/07/19 18:20 97 04/30/20 18:12 96 08/07/19 16:57 98 08/07/19 16:53 08/07/19 15:57 99 08/07/19 15:27 100 08/07/19 15:12 99 08/07/19 15:10 99 08/07/19 15:05 99 08/07/19 15:02 98 08/07/19 15:01 100 08/07/19 15:00 99 08/07/19 14:55 99 Transfer of Care Handoff Completed per policy Notes Mental Status: alert / awake / arousable and participated in evaluation Patient Amnestic to Procedure: Yes Nausea / Vomiting: adequately controlled Pain: adequately controlled Airway Patency, RR, SpO2: stable & adequate BP & HR: stable & adequate Hydration State: stable & adequate Anesthetic Complications: no major complications apparent and Pt Satisfied with anesthetic care
[2019-08-09 05:57] LABS: Hematocrit (blood only) 28.2 % (42-52); Hemoglobin 7.9 g/dL (14.0-18.0); Mean Corpuscular Hemoglobin 18.6 pg (25-34); Mean Corpuscular Volume 66.4 fL (80-100); Platelet Count 250 K/uL (130-400); RDW Coefficient of Variation 19.8 % (11.5-14.5); RDW Standard Deviation 46.1 fL (36.4-46.3); Red Blood Count 4.25 M/uL (4.7-6.1); White Blood Count 6.12 K/uL (4.8-10.8)
[2019-08-09 06:23] LABS: Basophils # (auto) 0.06 K/uL (0-0.2); Eosinophils # (auto) 0.12 K/uL (0-0.5); Immature Granulocytes # (auto) 0.09 K/uL (0.00-0.02); Immature Granulocytes % (auto) 1.5 %; Lymphocytes # (auto) 1.37 K/uL (1.2-3.4); Lymphocytes % (auto) 22.4 %; Monocytes % (auto) 6.5 %; Neutrophils # (auto) 4.08 K/uL (1.4-6.5); Neutrophils % (auto) 66.6 %; Ovalocytes 1+
[2019-08-09 06:28] LABS: BUN Creatinine Ratio 11.6 (10-20); Calcium 8.5 mg/dl (8.5-10.1); Est GFR (Non-African American) 83.7; Potassium 4.2 mmol/L (3.5-5.1)
[2019-08-09] MEDS: IRON SUCROSE 200 MG in 0.9 % SODIUM CHLORIDE 100 ML IV SCH (08:36)
[2019-08-09] MEDS: PANTOprazole 40 MG TAB PO SCH (08:37)
[2019-08-09] MEDS ORDERED: HEPARIN 100 UNIT/ML 5ML FLUSH ONE (09:10)
--- NOTE | 2019-08-09 09:59 | Discharge Summary ---
Date of Service August 09, 2019 Admission HPI Per Admitting Provider Mr. Santamaria presents today for anemia. He had been experiencing lightheadedness since Sunday with accompanying fatigue and sob. He had a mild temperature of 100.1 but no fever since Sunday. No n/v/d, no abdominal pain. He denies any blood in his stool. No cough. No sick contacts. 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 [employer] Principal Diagnosis Iron deficiency anemia Discharge Exam Constitutional WD/WN, vitals as above Eyes PERRL, conjunctivae normal, anicteric sclerae ENMT external ear and nose normal, oropharynx normal Neck trachea midline, no thyromegaly Respiratory normal respiratory effort, lungs clear to auscultation Cardiovascular RRR, no murmur, no edema Gastrointestinal (Abdomen) normal bowel sounds, soft, nontender, no hepatosplenomegaly Musculoskeletal no cyanosis or clubbing, extremities motor strength 5/5 Skin no rashes, warm and dry Neurologic patellar DTR's 2+ bilat, sensation intact and PERRL, EOMI, accommodation nl, no face palsy, no dysarthria Psychiatric A+Ox3, euthymic affect Lymphatic no cervical or axillary lymphadenopathy Discharge Data Allergies Allergy/AdvReac Type Severity Reaction Status Date / Time cetuximab [From Erbitux] Allergy Severe Bronchial Verified 08/07/19 13:42 Spasms Consultations 08/07/19 14:15 ED Decision to Admit Stat 08/07/19 16:08 Consult Gastroenterology Routine Procedures Performed Operation Date: 08/08/19 16:00 Actual Procedures p Esophagogastroduodenoscopy - [facility] Course (1) Anemia: likely slow blood loss, took three months for Hb to drop by 3 grams Hgb 6.9 on admission with trace guaiac blood in ED, no gracia blood or melena transfused one unit PRBC on admission, Hb up to 7.8 on 08/07 and then 7.9 on 08/08 iron stores are very low, see below had EGD on 08/07 with no signs of bleeding, had possible Valencia's changes but no biopsy due to recent NOAC plan to follow up with [facility] in near future for colonoscopy, possible repeat EGD with biopsy (2) Iron deficiency: Ferritin very low at 6 plan to give Venofer 200mg IV x 5 total doses received two doses here, set up for home nursing for last three doses port accessed by IV team prior to discharge, can use port at home he is not interested in iron tablets at this time due to possible constipation provided him with foods rich in iron follow up with PCP in a week (3) Diabetes mellitus: hold metformin bsgs ac & hs no hypoglycemia can resume Metformin on discharge (4) GERD (gastroesophageal reflux disease): Pantoprazole (5) History of pulmonary embolism: PE was diagnosed almost a year ago Hold xeralto for anemia likely secondary to acute blood loss will resume Xarelto on discharge will need to hold 2 days prior to any future endoscopy, GI will give him directions Total Time Total Time Spent Total Time Spent (In Minutes): 36 minutes Total Time Includes: Examination of the Patient, Discharge Planning, Medication Reconciliation and Communication With Other Providers (Dr. Gomez) Discharge Plan Discharge Items Patient Disposition: Home - Home Health Services Reason For Visit: SYMPTOMATIC ANEMIA Discharge Diagnosis: Iron deficiency anemia Condition on Discharge: Good Goals: complete 3 more Venofer infusions at home follow up closely with Dr. Giles this week, discuss iron deficiency follow up with [facility] in near future for outpatient colonoscopy, possible repeat EGD Activity: Resume your previous activity Driving/Machine Use: No limitations Weightbearing: Full weightbearing Non-emergency contact: Primary Care Provider and Ict Help Desk Technician Call non-emergency contact if: you have any medication questions and your symptoms worsen Follow-up/Referrals: Jett Powell [Physician] - (2-3 weeks for colonoscopy, possible repeat EGD) Gera Giles MD [Primary Care Provider] - (has appt this week scheduled) Diet: Carb Consistent or DM2 Diet Comment: eat foods rich in iron Addtl Attending Provider Instructions: Medications: no changes to prior medications - VENOFER: set up for home infusions to start tomorrow, total of three more treatments for 5 total Iron deficiency anemia typically this is due to slow blood loss, poor iron intake or combination of both EGD did not show any cause for bleeding Hb was 6.9 on admission, transfused one unit of blood, Hb up to 7.9 on the day of discharge [facility] would like to perform a colonoscopy in the near future to look for another source of bleeding may need a repeat EGD so that routine biopies can be taken, would need to be off Xarelto two days prior, [facility] would give you further instructions best route of iron replacement is IV infusion of Venofer, you received two doses here, will get three more at home as we discussed, try to eat more foods rich in iron such as red meat, poultry, spinach, broccoli, beans, iron fortified cereals eating foods high in vitamin C can enhance absorption of iron try to avoid drinking coffee, tea or calcium rich foods/drinks at that same time you eat iron rich foods Pending Studies at Discharge: No Stand-Alone Forms: [facility], Smoking Cessation Medications and DC Order Prescriptions: Continued fluticasone propionate [Flonase Allergy Relief] 50 mcg/actuation Gilbert,Suspension 2 spray INTRANASAL DAILY PRN (Reason: Allergy Symptoms) RF: 0 pantoprazole [Protonix] 40 mg Tablet,Delayed Release (Dr/Ec) 40 mg PO DAILY PRN (Reason: During week of Chemo Treatment) RF: 0 metformin 1,000 mg Tablet 1,000 mg PO BID RF: 0 Xarelto 20 mg tablet 20 mg PO DAILY RF: 0 Discharge Orders: Discharge Order (Routine); Ordered 08/09/19 Ordered By: Davi Kumari Admission Data Admit Date/Time: 08/07/19 14:21 Attending Provider: Davi Kumari Admit Provider: Davi Kumari Primary Care Provider: Gera Giles Other Providers: Davi Kumari ; Jett Powell ; [facility] Other Interventions: Discharge Summary Assessment (RN) Last Done: 08/09/19 09:59 DC Date/Time DO NOT enter until pt leaves facility: 08/09/19 11:14 Coding Level of Care Code D/C Day Management >30 mins Diagnoses Anemia D64.9 Anemia type: unspecified type Iron deficiency E61.1 Diabetes mellitus E11.9 Diabetes mellitus complication status: without complication Diabetes mellitus fdc insulin use: without termite exterminator use Diabetes mellitus type: type 2 GERD (gastroesophageal reflux disease) K21.9 History of pulmonary embolism Z86.711
== END 2019-08-09 11:14 | disposition home health service (06) | DRG 812 ==
LOC: ED 12:47 → 2W 14:21

== ENCOUNTER 2022-11-16 13:47 | Inpatient (IN) ==
--- NOTE | 2022-11-16 14:13 | ED Triage Note ---
Date of Service November 16, 2022 History of Present Illness This patient was briefly evaluated while in triage. An abbreviated physical exam was performed. This patient is a 52-year-old Male stage 4 colon cancer to liver who presents to the ED for evaluation of ongoing hiccups that worsened accompanied by vomiting dark chocolate colored material and had a loose stool BM that was black. Endorses some epigastric pain. Just started chemotherapy yesterday on pump. Physical Exam CONSTITUTIONAL: in no acute pain or distress, intermittent hiccups SKIN: pink, warm, dry CARDIAC: regular rate and rhythm RESPIRATORY: in no respiratory distress, lungs clear to auscultation ABDOMEN: No peritonitis, mild tenderness in epigastric Initial orders for labs and / or imaging were placed and patient was placed in the waiting area until a bed is available. Please see further documentation for the full ED course.
[2022-11-16] MEDS ORDERED: SODIUM CHLORIDE 0.9% 1000ML 1,000 ML IV ONE ×2 (14:37→16:36)
[2022-11-16] MEDS ORDERED: SODIUM CHLORIDE 0.9% 250 ML IV PRN (14:37)
--- NOTE | 2022-11-16 15:08 | Emergency Department Note ---
Impression & Plan Acute upper gastrointestinal bleeding, Abdominal pain, Leukocytosis, Elevated troponin ED Provider Note NAME: LINNEA PRINGLE AGE: 52 SEX: M : 1970 ARRIVES VIA: Walk-In INFORMANT: Patient ED PROVIDER(S): Kameron Uribe DO CHIEF COMPLAINT:vomiting HPI: Patient is a 52-year-old male with a past medical history of diabetes, colon cancer with metastatic disease to the liver who presents to the ER for vomiting and hiccups. He started throwing up dark coffee-ground emesis today. He notes his stool has been black for the past 24 hours. He is on a blood thinner for previous DVT and PE. He took the rivaroxaban last night. Denies any headache or change in vision. No chest pain or shortness of breath. No dysuria, urgency, or frequency. No other exacerbating or remitting factors. PAST MEDICAL HISTORY:See Below PAST SURGICAL HISTORY:See Below FAMILY HISTORY:See Below SOCIAL HISTORY:See Below HOME MEDICATIONS:See Below ALLERGIES:See Below VITALS:See Below PHYSICAL EXAMINATION: GENERAL: Sitting up in bed, alert, intermittently dry heaving, mild distress EYE EXAM: normal conjunctiva. OROPHARYNX: Dry mucous membranes NECK: supple, no nuchal rigidity, no adenopathy, non-tender LUNGS: Clear to auscultation. Normal chest wall mechanics HEART: no murmurs, S1 normal and S2 normal ABDOMEN: abdomen soft, non-tender, normo-active bowel sounds, no masses, no rebound or guarding. RECTAL: hem + UPPER EXTREMITIES: upper extremities are grossly normal. LOWER EXTREMITIES: No pitting edema. NEURO EXAM: Normal sensorium, cranial nerves II-XII grossly intact, normal speech, no gross weakness of arms, no gross weakness of legs. MEDICAL DECISION MAKING: Patient is a 52-year-old male who presents ER for above-stated complaint. Does take rivaroxaban and has not missed any doses. Last dose was last night. Labs show leukocytosis of 19,000. Hemoglobin 12.4. Platelets were appropriate. INR at 1.5. BMP was unremarkable. Mild transaminitis at 60s. Troponin was elevated at 120. Lipase normal. Rectal heme positive. Patient was typed and screened. CT abdomen pelvis showed possible gastric outlet obstruction. Discussed with gastroenterology Dr. Amato who notes to keep the patient n.p.o. and will see in the morning unless situation changes. Discussed with Dr. Blankenship for further evaluation management and treatment. Patient was updated at bedside. Patient was placed on Protonix drip and bolus. He was given IV fluid. Triage Nursing notes reviewed. Limited review of prior medical records performed Vital Signs: reviewed and remarkable for hypotension Differential diagnosis: Differential diagnoses includes but is not limited to gastritis, peptic ulcer disease, GERD, gallbladder disease, pancreatitis, small bowel obstruction, appendicitis, diverticulitis, hernia, urinary tract infection, torsion, perforation, trauma, infectious. ER treatment provided: See below Diagnostics interpreted by me include EKG and cardiac monitoring as listed be low: -Cardiac Monitoring: An order was placed for continuous cardiac monitoring. The monitor shows a rate of 90 with sinus rhythm. -ECG: Sinus rhythm rate [address] changes in the inferior leads QTc 423 -Laboratory studies:Interpreted by me as stated above in MDM and shown below. Imaging studies: Xrays: As interpreted by me:none CTs show: CT abdomen pelvis per my read shows a distended stomach CT abdomen pelvis shows a possible gastric outlet obstruction per radiology Consultation(s): As described in MDM Procedures:none Critical Care: None Past Med/Surg History Medical History (Updated 11/16/22 @ 17:36 by Kameron Uribe DO) Anemia Colon cancer 02/2018--sx, chemo--metastasized to liver and lymph nodes Diabetes mellitus, type 2 GERD (gastroesophageal reflux disease) History of pulmonary embolism Noted on 09/2018 CT scan of chest Hypertension BORDERLINE Surgical History History of colon resection 01/2019 @ [facility] 6-8 inches removed with portion of liver removed (40%) History of colonoscopy History of colostomy 2017 @ [facility], per pt no colon resection only colostomy History of colostomy reversal 05/2019 @ [facility] during liver sx History of esophagogastroduodenoscopy (EGD) History of surgery of liver 05/2019 @ [facility] another 30% removed at that time History of vascular access device Aport on right side History of wisdom tooth extraction Hx of vasectomy Family History Unknown Family history of diabetes mellitus Aunt Family hx of colon cancer Other No family history of adverse response to anesthesia Social History Smoking Status: Never smoker Second Hand Exposure: Yes (parents/family smoked); Do You Dip or Chew Tobacco: No; Hx Alcohol Use: Yes Alcohol type: beer and hard liquor Hx Substance Use: No Preferred Language: [place] Communication Ability: Effective Meter Attendant Required: No Beliefs That Will Affect Care: None marital status: Current Living Situation: Spouse and Family Current Living Situation Comment: Lives with and 2 daughters Feels Safe at Home: Yes Assistive Devices: Glasses Allergies Allergies Allergy/AdvReac Type Severity Reaction Status Date / Time cetuximab [From Erbitux] Allergy Severe Bronchial Verified 11/16/22 15:54 Spasms Home Meds Home Medications Medication Instructions Recorded Confirmed fluticasone propionate 50 2 spray intranasal DAILY PRN 04/25/18 11/16/22 mcg/actuation nasal Allergy Symptoms spray,suspension (Flonase Allergy Relief) pantoprazole 40 mg tablet,delayed 40 mg PO QAM 07/22/18 11/16/22 release (Protonix) metformin 1,000 mg tablet 1,000 mg PO BID 08/02/18 11/16/22 rivaroxaban 20 mg tablet (Xarelto) 20 mg PO QPM 03/19/19 11/16/22 baclofen 5 mg tablet 5 mg PO TID PRN Hiccups 11/16/22 11/16/22 ferrous sulfate 325 mg (65 mg 65 mg PO DAILY 11/16/22 11/16/22 iron) tablet (iron) loperamide 2 mg capsule 2 mg PO DIRECTED PRN Diarrhea 11/16/22 11/16/22 losartan 25 mg tablet 25 mg PO DAILY 11/16/22 11/16/22 ondansetron HCl 8 mg tablet 0 mg PO DIRECTED PRN 11/16/22 11/16/22 NAUSEA/VOMITING Results & Data (ED) Vital Signs Vital Signs - 24 hr 11/16/22 14:04 11/16/22 15:09 11/16/22 15:11 Temperature 36.8 C Temperature Source Temporal Artery Scan Pulse Rate 95 H Pulse Rate [Apical] 89 Respiratory Rate 22 18 Respiratory Effort / Characteristics Non-Labored Non-Labored Respiratory Depth Normal Normal Respiratory Pattern Regular Regular Blood Pressure 91/64 L Blood Pressure [Right Arm] 96/75 L Blood Pressure Mean 73 Blood Pressure Mean [Right Arm] 82 Pulse Oximetry 97 96 96 Oxygen Delivery Method Room Air Room Air Room Air Sepsis Recent Fever Within 48 Hours No Sepsis New/Unexplained Change in Mental Status N/A Sepsis Action Taken by Nursing No Action Required 11/16/22 15:33 Temperature Temperature Source Pulse Rate 86 Pulse Rate [Apical] Respiratory Rate Respiratory Effort / Characteristics Respiratory Depth Respiratory Pattern Blood Pressure Blood Pressure [Right Arm] Blood Pressure Mean Blood Pressure Mean [Right Arm] Pulse Oximetry Oxygen Delivery Method Sepsis Recent Fever Within 48 Hours Sepsis New/Unexplained Change in Mental Status Sepsis Action Taken by Nursing Laboratory Data 11/16/22 15:07 11/16/22 15:07 Lab Results 11/16/22 11/16/22 11/16/22 Range/Units 15:07 15:07 15:07 WBC 19.66 H (4.8-10.8) K/ul RBC 4.25 L (4.70-6.10) M/uL Hgb 12.4 L (14.0-18.0) g/dl Hct 39.3 L (42.0-52.0) % MCV 92.5 (80.0-100.0) fL MCH 29.2 (25.0-34.0) pg MCHC 31.6 L (32.0-36.0) g/dL RDW Std Deviation 56.2 H (36.4-46.3) fL RDW Coeff of Bulmaro 17.0 H (11.5-14.5) % Plt Count 169 (130-400) K/uL MPV 11.6 (9.4-12.4) fL Absolute Nucleated RBC 0.02 (0-0.12) K/uL Nucleated RBC % (auto) 0.1 % Neutrophils % (Manual) 93 % Lymphocytes % (Manual) 6 % Basophils % (Manual) 1 % Neutrophils # (Manual) 18.28 H (1.40-6.50) K/uL Total Absolute Neuts 18.28 H (1.4-6.5) K/uL Lymphocytes # (Manual) 1.18 L (1.2-3.4) K/uL Total Abs Lymphocytes 1.18 L (1.2-3.4) K/uL Basophils # (Manual) 0.20 (0-0.2) K/uL Toxic Granulation 1+ Dohle Bodies 1+ Polychromasia 1+ Tear Drop Cells 2+ PT 16.3 H (9.0-12.0) Seconds INR 1.5 H (0.9-1.1) APTT 33.0 H (21.0-31.0) Seconds PTT Ratio 1.2 Sodium 139 (136-145) mmol/L Potassium 3.5 (3.5-5.1) mmol/L Chloride 104 (98-107) mmol/L Carbon Dioxide 24 (21-32) mmol/L Anion Gap 11 (3-11) BUN 23 (6-23) mg/dl Creatinine 1.08 (0.6-1.4) mg/dl Est Cr Clr Drug Dosing 92.3 ml/min Est GFR ( Amer) 89.7 ml/min Est GFR (Non-Af Amer) 77.4 ml/min BUN/Creatinine Ratio 21.3 H (10-20) Glucose 220 H (70-99(Fasting)) mg/dl Calcium 8.4 L (8.6-10.3) mg/dl Total Bilirubin 0.8 (0.2-1.0) mg/dl AST 60 H (13-39) U/L ALT 76 H (7-52) U/L Alkaline Phosphatase 496 H (34-104) U/L Troponin I High Sens 120.2 H* (0-20) pg/ml Total Protein 6.0 (6.0-8.3) gm/dl Albumin 3.8 (3.4-5.0) gm/dl Globulin 2.2 L (2.5-4.0) gm/dl Albumin/Globulin Ratio 1.7 (0.9-2) Lipase 73 (11-82) U/L POC Stool Occult Blood (Negative) Blood Type Antibody Screen Crossmatch 11/16/22 11/16/22 Range/Units 15:07 15:09 WBC (4.8-10.8) K/ul RBC (4.70-6.10) M/uL Hgb (14.0-18.0) g/dl Hct (42.0-52.0) % MCV (80.0-100.0) fL MCH (25.0-34.0) pg MCHC (32.0-36.0) g/dL RDW Std Deviation (36.4-46.3) fL RDW Coeff of Bulmaro (11.5-14.5) % Plt Count (130-400) K/uL MPV (9.4-12.4) fL Absolute Nucleated RBC (0-0.12) K/uL Nucleated RBC % (auto) % Neutrophils % (Manual) % Lymphocytes % (Manual) % Basophils % (Manual) % Neutrophils # (Manual) (1.40-6.50) K/uL Total Absolute Neuts (1.4-6.5) K/uL Lymphocytes # (Manual) (1.2-3.4) K/uL Total Abs Lymphocytes (1.2-3.4) K/uL Basophils # (Manual) (0-0.2) K/uL Toxic Granulation Dohle Bodies Polychromasia Tear Drop Cells PT (9.0-12.0) Seconds INR (0.9-1.1) APTT (21.0-31.0) Seconds PTT Ratio Sodium (136-145) mmol/L Potassium (3.5-5.1) mmol/L Chloride (98-107) mmol/L Carbon Dioxide (21-32) mmol/L Anion Gap (3-11) BUN (6-23) mg/dl Creatinine (0.6-1.4) mg/dl Est Cr Clr Drug Dosing ml/min Est GFR ( Amer) ml/min Est GFR (Non-Af Amer) ml/min BUN/Creatinine Ratio (10-20) Glucose (70-99(Fasting)) mg/dl Calcium (8.6-10.3) mg/dl Total Bilirubin (0.2-1.0) mg/dl AST (13-39) U/L ALT (7-52) U/L Alkaline Phosphatase (34-104) U/L Troponin I High Sens (0-20) pg/ml Total Protein (6.0-8.3) gm/dl Albumin (3.4-5.0) gm/dl Globulin (2.5-4.0) gm/dl Albumin/Globulin Ratio (0.9-2) Lipase (11-82) U/L POC Stool Occult Blood Positive A (Negative) Blood Type O Positive Antibody Screen NEGATIVE Crossmatch See Detail Administered Medications Pantoprazole Sodium 40 mg/ (Dextrose) 100 mls @ 20 mls/hr IV Q5H DOMINGO Stop: 12/16/22 15:44 Last Admin: 11/16/22 16:25 Dose: 8 mg/hr, 20 mls/hr Documented By: Sodium Chloride (Nss 1000ml) 1,000 mls @ 999 mls/hr IV .Q1H1M ONE Stop: 11/16/22 17:36 Last Admin: 11/16/22 16:43 Dose: 999 mls/hr Documented By: AB Discontinued Medications Sodium Chloride (Nss 1000ml) 1,000 mls @ 999 mls/hr IV .Q1H1M ONE Stop: 11/16/22 15:37 Last Infusion: 11/16/22 16:34 Dose: 0 mls/hr Documented By: Admin: 11/16/22 15:32 Dose: 999 mls/hr Documented By: Pantoprazole Sodium (Protonix Bolus/Drip) 0 mls @ 1 mls/hr IV ONE STA Stop: 11/16/22 15:21 Last Admin: 11/16/22 16:41 Dose: Not Given Documented By: Pantoprazole Sodium 80 mg/ (Dextrose) 120 mls @ 400 mls/hr IV NOW ONE Stop: 11/16/22 15:37 Last Infusion: 11/16/22 16:32 Dose: 0 mls/hr Documented By: Admin: 11/16/22 16:03 Dose: 400 mls/hr Documented By: Ioversol (Optiray 320 100ml) 91 ml IV ONCE ONE Stop: 11/16/22 16:37 Last Admin: 11/16/22 16:36 Dose: 91 ml Documented By: SERGIO Metoclopramide HCl (Metoclopramide Hcl Inj 5 Mg/Ml 2 Ml Vial) 10 mg IV NOW STA Stop: 11/16/22 15:20 Last Admin: 11/16/22 15:36 Dose: 10 mg Documented By: Imaging Data Radiologist's Impression: Abdomen/Pelvis CT 11/16/22 14:06 CT SCAN OF THE ABDOMEN AND PELVIS WITH IV CONTRAST CLINICAL HISTORY: GI bleeding. History metastatic colon cancer. COMPARISON STUDY: Abdominal CT dated 09/23/2018. Abdominal MRI dated 04/11/2021. TECHNIQUE: Following the IV administration of 91 cc of Optiray 320, CT scan of the abdomen and pelvis is performed from the lung bases to the proximal femora. Images are reviewed in the axial, sagittal, and coronal planes. IV contrast was administered without complication. A dose lowering technique was utilized adhering to the principles of ALARA. CT DOSE: 1462.19 mGy.cm FINDINGS: Lung bases: The tip of a central venous infusion port terminates at the cavoatrial junction. The heart is normal in size and without pericardial effusion. There are coronary artery calcifications. The lung bases are clear. The distal esophagus is thick walled, distended, and filled with fluid. There is mild surrounding inflammation. Liver: There is postsurgical change from several hepatic resections. A 6.5 x 4 cm ovoid low-attenuation focus in the right lobe image 101 at a site of previous surgery likely represents treated disease. The liver demonstrates diffusely diminished attenuation indicating steatosis. There is no intrahepatic biliary ductal dilatation. The hepatic veins and portal veins are patent. Numerous subcentimeter low-attenuation foci are seen in the posterior right lobe of the liver, with auto claim representative foci seen on images #48, #70, #73, and #80 these are pathologically indeterminate but 4 not seen previously. Gallbladder: Surgically absent noting clips in the gallbladder fossa. Spleen: The spleen is enlarged measuring 15.9 cm in length. Pancreas: Unremarkable. Adrenal glands: Unremarkable. Kidneys: The contrast enhanced kidneys are normal in size and without hydronephrosis. The kidneys enhance symmetrically. Nonobstructing left renal calculi measuring up to 6 mm. Abdominal vasculature: The abdominal aorta is normal in course and caliber noting mild to moderate atherosclerotic calcification. Bowel: The stomach is significantly distended and fluid-filled. The duodenum is decompressed, and the appearance suggests gastric outlet obstruction. There is postoperative change from sigmoid colon resection and colocolonic anastomosis. No bowel obstruction is seen. The appendix is well-visualized and normal. A ventral hernia in the left mid abdomen contains a nonobstructed segment of small bowel. This is best seen on image #187. Loops of bowel matted anteriorly along the ventral abdominal wall likely represent adhesions. Peritoneum: There is no intraperitoneal free air or abdominal ascites. A midline surgical scar is noted. Lymphadenopathy: None. Pelvic viscera: The bladder, prostate, and seminal vesicles are normal as visualized. Skeletal structures: No lytic or blastic lesions are seen. IMPRESSION: 1. The stomach is significantly distended and fluid-filled, and the duodenum is normal in caliber. The appearance suggest gastric outlet obstruction. Correlate clinically. 2. The distal esophagus is thick-walled, hyperemic, distended, and fluid-filled. There is mild surrounding inflammation. Correlate clinically for evidence of esophagitis. These findings could be further assessed with endoscopy if clinically warranted. 3. There is postsurgical change from sigmoid colon resection as well as several hepatic resections. 4. An approximately 6.5 x 4 cm low-attenuation focus in the right lobe adjacent to surgical change is nearly water density and likely represents treated disea se. 5. There are numerous additional subcentimeter hypodensities in the posterior right lobe of the liver. These are nearly fluid attenuation, and were not seen on prior studies. These are pathologically indeterminate, and could represent new or treated lesions versus cystic change. Correlate with clinical findings and any more recent prior outside imaging studies. 6. Left-sided nephrolithiasis. 7. Splenomegaly. 8. Hepatic steatosis. 9. A hernia in the left ventral abdominal wall contains nonobstructed small bowel 10. Additional findings as above. ACT 112: Negative or not required by law. Electronically signed by: Thomas Santana M.D. 11/16/2022 4:55 PM Discharge Plan Visit Data Chief Complaint: Vomiting Stated Complaint: HICCUPS,DARK COLOR VOMIT ED Provider: Kameron Uribe Discharge Problem: Acute upper gastrointestinal bleeding, Abdominal pain, Leukocytosis, Elevated troponin Forms Stand Alone Forms: My [facility] [employer] Prescriptions Prescriptions: No Action fluticasone propionate [Flonase Allergy Relief] 50 mcg/actuation [place],Suspension 2 spray INTRANASAL DAILY PRN (Reason: Allergy Symptoms) pantoprazole [Protonix] 40 mg Tablet,Delayed Release (Dr/Ec) 40 mg PO QAM metformin 1,000 mg Tablet 1,000 mg PO BID Xarelto 20 mg tablet 20 mg PO QPM loperamide [Imodium] 2 mg Capsule 2 mg PO DIRECTED PRN (Reason: Diarrhea) Rx Instructions: administer after each loose stool until symptoms controlled; do not exceed 8 mg per 24 hrs ondansetron HCl [Zofran] 8 mg Tablet 0 mg PO DIRECTED PRN (Reason: NAUSEA/VOMITING) Rx Instructions: PT UNSURE OF STRENGTH, UNABLE TO VERIFY. ferrous sulfate [iron] 325 mg (65 mg iron) Tablet 65 mg PO DAILY losartan 25 mg tablet 25 mg PO DAILY baclofen 5 mg tablet 5 mg PO TID PRN (Reason: Hiccups) Referrals Referrals: Gera Giles MD [Primary Care Provider] -
[2022-11-16] MEDS ORDERED: METOCLOPRAMIDE HCL INJ 5 MG/ML 2 ML VIAL IV STA (15:19)
[2022-11-16] MEDS ORDERED: PANTOprazole 80 MG in DEXTROSE 5% 100 ML IV ONE (15:20)
[2022-11-16 16:11] LABS: Albumin Globulin Ratio 1.7 (0.9-2); Albumin Level 3.8 gm/dl (3.4-5.0); BUN Creatinine Ratio 21.3 (10-20); Bilirubin,Total 0.8 mg/dl (0.2-1.0); Calcium 8.4 mg/dl (8.6-10.3); Creatinine Clr Calc Pharmacy 92.3 ml/min; Est GFR (African American) 89.7 ml/min; Est GFR (Non-African American) 77.4 ml/min; Globulin 2.2 gm/dl (2.5-4.0); Hematocrit (blood only) 39.3 % (42.0-52.0); Hemoglobin 12.4 g/dl (14.0-18.0); Mean Corpuscular Hemoglobin 29.2 pg (25.0-34.0); Mean Corpuscular Hgb Conc 31.6 g/dL (32.0-36.0); Mean Corpuscular Volume 92.5 fL (80.0-100.0); Mean Platelet Volume 11.6 fL (9.4-12.4); Nucleated RBC # (auto) 0.02 K/uL (0-0.12); Nucleated RBC % (auto) 0.1 %; Platelet Count 169 K/uL (130-400); Potassium 3.5 mmol/L (3.5-5.1); RDW Standard Deviation 56.2 fL (36.4-46.3); Red Blood Count 4.25 M/uL (4.70-6.10); White Blood Count 19.66 K/ul (4.8-10.8)
[2022-11-16 16:17] LABS: ALC (manual) 1.18 K/uL (1.2-3.4); ANC (manual) 18.28 K/uL (1.4-6.5); Basophils % (manual) 1 %; Dohle Bodies 1+; Lymphocytes # (manual) 1.18 K/uL (1.2-3.4); Lymphocytes % (manual) 6 %; Neutrophils # (manual) 18.28 K/uL (1.40-6.50); Neutrophils % (manual) 93 %; Polychromasia 1+; Tear Drop Cells 2+; Toxic Granulation 1+
[2022-11-16 16:21] LABS: Troponin I High Sensitivity 120.2 pg/ml (0-20)
[2022-11-16 16:23] LABS: INR 1.5 (0.9-1.1); Partial Thromboplastin Ratio 1.2; Prothrombin Time 16.3 Seconds (9.0-12.0)
[2022-11-16] MEDS: PANTOprazole 40 MG in DEXTROSE 5% 100 ML IV SCH ×2 (16:25→22:11)
[2022-11-16] MEDS: PANTOPRAZOLE BOLUS/DRIP 1 EACH IV STA ×2 (16:32→16:41)
[2022-11-16] MEDS ORDERED: OPTIRAY 320 100ml IV ONE (16:36)
--- NOTE | 2022-11-16 16:54 | History & Physical Report ---
Date of Service November 16, 2022 Assessment & Plan (1) Acute upper gastrointestinal bleeding: Plan: Mounjaro recently started 5-6 weeks ago. Upper GI bleed, gastric outlet obstruction CTA/P: 1. The stomach is significantly distended and fluid-filled, and the duodenum is normal in caliber. The appearance suggest gastric outlet obstruction. Correlate clinically. 2. The distal esophagus is thick-walled, hyperemic, distended, and fluid-filled. There is mild surrounding inflammation. Correlate clinically for evidence of esophagitis. These findings could be further assessed with endoscopy if clinically warranted. 3. There is post surgical change from sigmoid colon resection as well as several hepatic resections. 4. An approximately 6.5 x 4 cm low-attenuation focus in the right lobe adjacent to surgical change is nearly water density and likely represents treated disease. 5. There are numerous additional subcentimeter hypodensities in the posterior right lobe of the liver. These are nearly fluid attenuation, and were not seen on prior studies. These are pathologically indeterminate, and could represent new or treated lesions versus cystic change. Correlate with clinical findings and any more recent prior outside imaging studies. 6. Left- sided nephrolithiasis. 7. Splenomegaly. 8. Hepatic steatosis. 9. A hernia in the left ventral abdominal wall contains nonobstructed small bowel10. Additional findings as above. Patient with hematemesis and 1 day of melena WBC 19.6 with neutrophilic predominance but no left shift, suspect demargination/reactive Darted on PPI drip, received 80 mg IV bolus. transition to 40 mg twice daily push S/p 2250 cc NSS, BP 96/75 from 91/64 Type and cross on file Hemoglobin 12.4, trend -Patient recently started Mounjaro 5 to 6 weeks ago acute she can contribute to gastroparesis, this is held GI consulted, NPO,? EGD. Patient is NGT at bedside, but will reach out if vomiting/nausea return for placement at that time -BP improved, normotensive following fluids. H&H trended. 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 Craft notified, chemo pump to be discontacted and treatment paused at this - 46 hour chemo infusion is continued at this moment. - Hx of partial colectomy, partial liver resection with [facility] Dr. Fishman. - Tumor in the liver identified earlier in August, for which he is now on chemo. - Has not had a colonoscopy 'in some time' but is being evaluated for liver transplant with [facility] and is pending an update. No known local/colon recurrent malignancy. - descending colectomy, s/p ostomy and reversal. Doing well from that perspective. Hypertension Oral antihypertensive held while n.p.o., resume losartan once able to tolerate n.p.o. Elevated Troponin - No history of [place]/CAD - Father with [place] at age 36, heavy tobacco use. [place]/CAD on maternal and paternal side of the family - Risk fx: T2DM, no HTN. No tobacco use;. - Echo last Sunday with [facility] as part of transplant assessment was normal. - ?Stress test given strong family history and evidence of demand ischemia EF 68%, no diabstolic dysfunction. NO valvular stenosis. STress Test 16 in [place]. - No anginal symptoms History of PE/DVT - After starting chemo was found to have DVT/PE in 2019 - On Xarelto since with no prior complications. Patient reports he has had subsequent CTAs which have been clear - Xarelto held for bleed T2DM -Mounjaro recently started, this is held? Contributing to gastroparesis Sliding scale, basal bolus while inpatient weight-based Goal BSG [id number] DVT prophylaxis: SCDs pharmacal prophylaxis contraindicated in the setting of bleed Diet: N.p.o. in the setting of bleed, pending possible endoscopy tomorrow morning Disposition: PCU CODE STATUS: Full code (2) Diabetes mellitus, type 2: (3) Colon cancer metastasized to liver: (4) Diabetes 1.5, managed as type 2: (5) Colon cancer metastasized to liver: (6) Thrombocytopenia: (7) GERD (gastroesophageal reflux disease): History of Present Illness Primary Care Provider: Gera Giles MD Trent is a 52-year-old male with a past medical history of type II DM, colon cancer with liver metastasis, pulmonary embolism, prior catheter associated bacteremia/infection, GERD, and iron deficiency who presents with coffee-ground emesis and melena x 24 hours. He has a history of PE for which she is on rivaroxaban and took evening of 11/15. He has not had syncope/presyncope/chest pain/dyspnea. His is 12.4 on admission, last 11.9 and 11/13/2022, and baseline appears approximately 1315 and was last near baseline on 10/31. Vomiting GIB on chemo. Colon cancer w/ liver mets. Black BM heme positive. Had chemo yesterday. 1 day of nausea/vomiting. Melena + dark emesis. Currently not passing any gas, +burping and belching more than normal No chest pain or chest pressure +lightheadedness dizziness earlier which resolved post fluids. Secor deyhydrated and had not eaten No fevers, chills, or sweats - Strong family history of CAD. Father few [place] (heavy smoker, CHF). 2x uncles with [place]. Father had first heart attack at age 36. Medical History: Reviewed Medications: Reviewed Surgical History: Reviewed Family history: Reviewed Allergies: Reviewed Social History: no tobacoc/etoh Code Status: Full Allergies Allergy/AdvReac Type Severity Reaction Status Date / Time cetuximab [From Erbitux] Allergy Severe Bronchial Verified 11/16/22 15:54 Spasms Home Medications Medication Instructions Recorded Confirmed Type fluticasone propionate 50 2 spray intranasal DAILY PRN 04/25/18 11/16/22 History mcg/actuation nasal Allergy Symptoms spray,suspension (Flonase Allergy Relief) pantoprazole 40 mg tablet,delayed 40 mg PO QAM 07/22/18 11/16/22 History release (Protonix) metformin 1,000 mg tablet 1,000 mg PO BID 08/02/18 11/16/22 History rivaroxaban 20 mg tablet (Xarelto) 20 mg PO QPM 03/19/19 11/16/22 History baclofen 5 mg tablet 5 mg PO TID PRN Hiccups 11/16/22 11/16/22 History ferrous sulfate 325 mg (65 mg 65 mg PO DAILY 11/16/22 11/16/22 History iron) tablet (iron) loperamide 2 mg capsule 2 mg PO DIRECTED PRN Diarrhea 11/16/22 11/16/22 History losartan 25 mg tablet 25 mg PO DAILY 11/16/22 11/16/22 History ondansetron HCl 8 mg tablet 0 mg PO DIRECTED PRN 11/16/22 11/16/22 History NAUSEA/VOMITING Past Med/Surg History Medical History (Updated 08/10/23 @ 17:36 by Kameron Uribe DO) Anemia Colon cancer 02/2018--sx, chemo--metastasized to liver and lymph nodes Diabetes mellitus, type 2 GERD (gastroesophageal reflux disease) History of pulmonary embolism Noted on 09/2018 CT scan of chest Hypertension BORDERLINE Surgical History [place] [facility] [place]8 [place] with portion of liver removed (40%) History of colonoscopy History of [place] [facility] [place] no colon resection only colostomy History of colostomy reversal [place]2019 [place] [facility] [place] sx History of esophagogastroduodenoscopy (EGD) History of surgery of liver 05[place]2019 [place] [facility] [place] 30% removed at that time History of vascular access device Aport on right side History of wisdom tooth extraction Hx of vasectomy Family History Unknown Family history of diabetes mellitus Aunt Family hx of colon cancer Other No family history of adverse response to anesthesia Social History Smoking Status: Never smoker Second Hand Exposure: Yes (parents/family smoked); Do You Dip or Chew Tobacco: No; Hx Alcohol Use: Yes Alcohol type: beer and hard liquor Hx Substance Use: No Preferred Language: Yoruba Communication Ability: Effective 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 NAD. Cooperative. HEENT: Atraumatic, normocephalic. Chest: R port in place. Chemo infusing through port on 46 hour protocol. Pulm: CTAB A&P. -wheezes, -rales, -rhonchi. Symmetrical chest rise. No increased work of breathing. No respiratory distress. Cardiac: RRR, -mrg. Radial pulses intact and symmetrical. Abdominal: Nontender, nondistended, soft. BS present. Ext: warm, dry. No edema Results & Data Results & Data Vital Signs (Past 12 Hours) Vital Signs Temp Pulse Pulse Resp BP BP Pulse Ox 11/16/22 15:33 86 11/16/22 15:11 89 18 96/75 L 96 11/16/22 15:09 96 11/16/22 14:04 36.8 C 95 H 22 91/64 L 97 O2 Del Method 11/16/22 15:33 11/16/22 15:11 Room Air 11/16/22 15:09 Room Air 11/16/22 14:04 Room Air PG Care Time/CCT Total # of Minutes Spent Total Time Spent with Patient: Total time spent is greater than 50% in coordination of care (as documented) at patient's floor/unit and/or counseling patient: Coding Level of Care Code 44740 INT INP/OBS CARE 3/75MIN Diagnoses Acute upper gastrointestinal bleeding K92.2 Diabetes mellitus, type 2 E11.9 Colon cancer metastasized to liver C18.9; C78.7 Diabetes 1.5, managed as type 2 E13.9 Thrombocytopenia D69.6 GERD (gastroesophageal reflux disease) K21.9
--- NOTE | 2022-11-16 16:57 | CT Scan Report ---
CT SCAN OF THE ABDOMEN AND PELVIS WITH IV CONTRAST CLINICAL HISTORY: GI bleeding. History metastatic colon cancer. COMPARISON STUDY: Abdominal CT dated 09/23/2018. Abdominal MRI dated 04/11/2021. TECHNIQUE: Following the IV administration of 91 cc of Optiray 320, CT scan of the abdomen and pelvi s is performed from the lung bases to the proximal femora. Images are reviewed in the axial, sagittal , and coronal planes. IV contrast was administered without complication. A dose lowering technique wa s utilized adhering to the principles of ALARA. CT DOSE: 1462.19 mGy.cm FINDINGS: Lung bases: The tip of a central venous infusion port terminates at the cavoatrial junction. The hear t is normal in size and without pericardial effusion. There are coronary artery calcifications. The l víctor bases are clear. The distal esophagus is thick walled, distended, and filled with fluid. There is mild surrounding inflammation. Liver: There is postsurgical change from several hepatic resections. A 6.5 x 4 cm ovoid low-attenuati on focus in the right lobe image 101 at a site of previous surgery likely represents treated disease. The liver demonstrates diffusely diminished attenuation indicating steatosis. There is no intrahepat ic biliary ductal dilatation. The hepatic veins and portal veins are patent. Numerous subcentimeter l ow-attenuation foci are seen in the posterior right lobe of the liver, with quality assurance representative foci seen on images #48, #70, #73, and #80 these are pathologically indeterminate but 4 not seen previously. Gallbladder: Surgically absent noting clips in the gallbladder fossa. Spleen: The spleen is enlarged measuring 15.9 cm in length. Pancreas: Unremarkable. Adrenal glands: Unremarkable. Kidneys: The contrast enhanced kidneys are normal in size and without hydronephrosis. The kidneys enh ance symmetrically. Nonobstructing left renal calculi measuring up to 6 mm. Abdominal vasculature: The abdominal aorta is normal in course and caliber noting mild to moderate at herosclerotic calcification. Bowel: The stomach is significantly distended and fluid-filled. The duodenum is decompressed, and the appearance suggests gastric outlet obstruction. There is postoperative change from sigmoid colon res ection and colocolonic anastomosis. No bowel obstruction is seen. The appendix is well-visualized an d normal. A ventral hernia in the left mid abdomen contains a nonobstructed segment of small bowel. T his is best seen on image #187. Loops of bowel matted anteriorly along the ventral abdominal wall lik kael represent adhesions. Peritoneum: There is no intraperitoneal free air or abdominal ascites. A midline surgical scar is not ed. Lymphadenopathy: None. Pelvic viscera: The bladder, prostate, and seminal vesicles are normal as visualized. Skeletal structures: No lytic or blastic lesions are seen. IMPRESSION: 1. The stomach is significantly distended and fluid-filled, and the duodenum is normal in caliber. Th e appearance suggest gastric outlet obstruction. Correlate clinically. 2. The distal esophagus is thick-walled, hyperemic, distended, and fluid-filled. There is mild surrou nding inflammation. Correlate clinically for evidence of esophagitis. These findings could be further assessed with endoscopy if clinically warranted. 3. There is postsurgical change from sigmoid colon resection as well as several hepatic resections. 4. An approximately 6.5 x 4 cm low-attenuation focus in the right lobe adjacent to surgical change is nearly water density and likely represents treated disease. 5. There are numerous additional subcentimeter hypodensities in the posterior right lobe of the liver . These are nearly fluid attenuation, and were not seen on prior studies. These are pathologically in determinate, and could represent new or treated lesions versus cystic change. Correlate with clinical findings and any more recent prior outside imaging studies. 6. Left-sided nephrolithiasis. 7. Splenomegaly. 8. Hepatic steatosis. 9. A hernia in the left ventral abdominal wall contains nonobstructed small bowel 10. Additional findings as above. ACT 112: Negative or not required by law. Electronically signed by: Thomas Santana M.D. 11/16/2022 4:55 PM
[2022-11-16] MEDS ORDERED: GLUCAGON FOR INJ 1 MG VIAL SQ PRN (22:51)
[2022-11-16] MEDS ORDERED: GLUCOSE 40% GEL 15 GM TUBE PO PRN (22:51)
[2022-11-16] MEDS ORDERED: DEXTROSE 50% 50 ML SYRINGE IV PRN (22:51)
[2022-11-16] MEDS ORDERED: INSULIN ASPART PER UNIT CHARGE SC SCH (22:51)
[2022-11-16] MEDS ORDERED: GLUCOSE 10 TAB/TUBE PO PRN (22:51)
[2022-11-16] MEDS ORDERED: CARBOHYDRATES FOR HYPOGLYCEMIA PO PRN (22:51)
[2022-11-16] MEDS: PLASMA-LYTE A 1,000 ML IV SCH (23:01)
[2022-11-16] MEDS: LANTUS PER UNIT CHARGE SQ SCH (23:24)
[2022-11-16] MEDS: PANTOprazole 40 MG in SYRINGE 0 ML IV SCH (23:26)
[2022-11-16] MEDS ORDERED: Nursing to Pharmacy Communication SCH (23:45)
[2022-11-17 00:01] LABS: Hematocrit (blood only) 33.5 % (42.0-52.0); Hemoglobin 10.5 g/dl (14.0-18.0)
[2022-11-17] MEDS: INSULIN ASPART PER UNIT CHARGE SC SCH ×3 (06:19→20:25)
[2022-11-17] MEDS: PLASMA-LYTE A 1,000 ML IV SCH ×2 (06:23→16:33)
[2022-11-17 07:08] LABS: BUN Creatinine Ratio 28.2 (10-20); Creatinine Clr Calc Pharmacy 127.6 ml/min; Est GFR (African American) 118.6 ml/min; Est GFR (Non-African American) 102.3 ml/min; Potassium 3.4 mmol/L (3.5-5.1)
[2022-11-17 07:15] LABS: Basophils # (auto) 0.05 K/uL (0-0.2); Basophils % (auto) 0.7 %; Eosinophils # (auto) 0.01 K/uL (0-0.50); Eosinophils % (auto) 0.1 %; Hematocrit (blood only) 30.2 % (42.0-52.0); Hemoglobin 9.7 g/dl (14.0-18.0); Immature Granulocytes # (auto) 0.18 K/uL (0.01-0.20); Immature Granulocytes % (auto) 2.4 %; Lymphocytes # (auto) 1.06 K/uL (1.2-3.4); Lymphocytes % (auto) 14.3 %; Mean Corpuscular Hemoglobin 29.3 pg (25.0-34.0); Mean Corpuscular Hgb Conc 32.1 g/dL (32.0-36.0); Mean Corpuscular Volume 91.2 fL (80.0-100.0); Mean Platelet Volume 11.5 fL (9.4-12.4); Monocytes # (auto) 0.54 K/uL (0.11-0.59); Monocytes % (auto) 7.3 %; Neutrophils # (auto) 5.56 K/uL (1.40-6.50); Neutrophils % (auto) 75.2 %; Platelet Count 90 K/uL (130-400); Platelet Estimate Decreased (Normal); Polychromasia 1+; RDW Coefficient of Variation 16.7 % (11.5-14.5); RDW Standard Deviation 55.3 fL (36.4-46.3); Red Blood Count 3.31 M/uL (4.70-6.10); Tear Drop Cells 1+
[2022-11-17 07:19] LABS: Estimated Average Glucose 128 mg/dl; Hemoglobin A1C 6.1 % (4.5-5.6)
--- NOTE | 2022-11-17 07:38 | Hospitalist Progress Note ---
Date of Service November 17, 2022 Assessment & Plan (1) Acute blood loss anemia: Plan: 52-year-old male with a past medical history of type II DM, colon cancer with liver metastasis, pulmonary embolism, prior catheter associated bacteremia/infection, GERD, and iron deficiency who presents with coffee-ground emesis and melena x 24 hours. (1) Acute upper gastrointestinal bleeding: Upper GI bleed, gastric outlet obstruction CTA/P:The stomach is significantly distended and fluid-filled, and the duodenum is normal in caliber. The appearance suggest gastric outlet obstruction. The distal esophagus is thick-walled, hyperemic, distended, and fluid-filled. There is mild surrounding inflammation. Patient with hematemesis and 1 day of melena WBC 19.6 with neutrophilic predominance but no left shift, suspect jazmyne gination/reactive started on protonix drip, received 80 mg IV bolus. transition to 40 mg twice daily push Type and cross on file Hemoglobin 12.4 --> 9.2, continue to trend -Patient recently started Mounjaro 5 to 6 weeks ago acute she can contribute to gastroparesis, this is held GI consulted, EGD: severe ulcerative esophaigits that bled after biopsy, injected with epinephrine for hemostasis. gastric outlet obstruction and deformity of pylorus, dilated to 10.5 mm with balloon. 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 Craft notified, chemo pump to be disconnected and treatment paused at this - 46 hour chemo infusion is continued at this moment. - Hx of partial colectomy, partial liver resection with [facility] Dr. Fishman. - Tumor in the liver identified earlier in August, for which he is now on chemo. - Has not had a colonoscopy 'in some time' but is being evaluated for liver transplant with [facility] and is pending an update. No known local/colon recurrent malignancy. - descending colectomy, s/p ostomy and reversal. Doing well from that perspective. Hypertension Oral antihypertensive held while n.p.o., resume losartan once able to tolerate n.p.o. Elevated Troponin - No history of [place]/CAD - Father with [place] at age 36, heavy tobacco use. [place]/CAD on maternal and paternal side of the family - Risk fx: T2DM, no HTN. No tobacco use;. - Echo last Sunday with [facility] as part of transplant assessment was normal. - ?Stress test given strong family history and evidence of demand ischemia EF 68%, no diastolic dysfunction. No valvular stenosis. Stress Test 16 in [place]. - No anginal symptoms History of PE/DVT - After starting chemo was found to have DVT/PE in 2019 - On Xarelto since with no prior complications. Patient reports he has had subsequent CTAs which have been clear - Xarelto held for bleed T2DM -Mounjaro recently started, this is held? possible contributing to gastroparesis Sliding scale, basal bolus while inpatient weight-based Goal BSG [id number] DVT prophylaxis: SCDs pharmacal prophylaxis contraindicated in the setting of bleed Diet: clear liquid diet Disposition: PCU CODE STATUS: Full code (2) Acute upper gastrointestinal bleeding: (3) Gastric outlet obstruction: (4) Diabetes mellitus, type 2: (5) History of pulmonary embolism: (6) Colon cancer metastasized to liver: Admission and Anticipated Discharge Date Admission Date: November 16, 2022 Supervising Physician Co-Signing Physician Notes I personally examined the patient and verified all garcia points of history and exam, discussed case, and agree with decision making and plan documented by Dr. Smyth. Evaluated patient at bedside following EGD today where balloon dilation of pyloric region and biopsies obtained for bleeding ulcers. Patient had multiple bowel movements following procedure and feels less distention and upper abdomen. Will continue to monitor hemoglobin. VSS. Subjective Patient seen at bedside, calm comfortable cooperative. States he feels better than yesterday abd pain improved no longer having hematemesis. Patient denies nausea vomitting SOB fever. Understands that there could be multiple causes contributing to his GI bleed. Patient understands GI will see him later today. Physical Exam Constitutional: WD/WN, vitals as above Eyes: PERRL, conjunctivae normal, anicteric sclerae ENMT: external ear and nose normal, oropharynx normal Respiratory: normal respiratory effort, lungs clear to auscultation Cardiovascular: RRR, no murmur, no edema Gastrointestinal (Abdomen): Inspection/Auscultation: abdomen normal to inspection Percussion/Palpation: abdomen soft; abdomen nontender Skin: no rashes, warm and dry Results & Data Results & Data Vital Signs (Past 12 Hours) Vital Signs Temp Pulse Pulse Resp BP Pulse Ox O2 Del Method 11/17/22 07:01 36.5 C 70 18 99/65 L 98 Room Air 11/17/22 03:37 36.6 C 81 17 118/80 99 Room Air 11/17/22 00:30 36.7 C 87 16 103/66 99 Room Air 11/16/22 23:48 91 H 11/16/22 22:31 Room Air 11/16/22 21:40 91 H 14 113/79 92 11/16/22 19:44 91 H 20 114/82 96 Room Air Resident Activity Tracking Resident Involvement: Resident Care Provided Care Provided: Adult Hospital Medicine
--- NOTE | 2022-11-17 08:23 | Electrocardiogram Report ---
Test Reason : Blood Pressure : / mmHG Vent. Rate : 089 BPM Atrial Rate : 089 BPM P-R Int : 168 ms QRS Dur : 084 ms QT Int : 368 ms P-R-T Axes : 036 001 067 degrees QTc Int : 447 ms Sinus rhythm Possible Inferior infarct , age undetermined Abnormal ECG When compared with ECG of 07-AUG-2019 13:24, Borderline criteria for Inferior infarct are now Present Confirmed by Anil Stinson ([id number]) on 11/17/2022 8:23:05 AM Referred By: REFERRED SELF Confirmed By:Jaylen Stinson
--- NOTE | 2022-11-17 08:24 | Electrocardiogram Report ---
Test Reason : Blood Pressure : / mmHG Vent. Rate : 083 BPM Atrial Rate : 083 BPM P-R Int : 150 ms QRS Dur : 086 ms QT Int : 360 ms P-R-T Axes : 027 017 072 degrees QTc Int : 423 ms Normal sinus rhythm Possible Inferior infarct , age undetermined Abnormal ECG When compared with ECG of 07-AUG-2019 13:24, Borderline criteria for Inferior infarct are now Present Nonspecific T wave abnormality now evident in Anterior leads Confirmed by Anil Stinson ([id number]) on 11/17/2022 8:24:26 AM Referred By: REFERRED SELF Confirmed By:Jaylen Stinson
[2022-11-17] MEDS: PANTOprazole 40 MG in SYRINGE 0 ML IV SCH ×2 (08:25→20:30)
[2022-11-17] MEDS: LANTUS PER UNIT CHARGE SQ SCH ×2 (08:34→20:26)
--- NOTE | 2022-11-17 10:29 | Gastrointestinal Consultation ---
Date of Consultation November 17, 2022 Assessment & Plan (1) Acute upper gastrointestinal bleeding: (2) Gastric outlet obstruction: (3) Colon cancer metastasized to liver: Plan -Keep NPO for EGD this afternoon with Dr. Boyer. -Continue IV Protonix 40 mg BID. -Continue to monitor H/H. -Continue outpatient management for liver concerns with [facility]. We do not have their scans to compare his current CT liver to. He will require ongoing follow- up with them. -Continue ongoing follow-up with oncology. Supervising Physician Co-Signing Physician Notes I saw the patient and agree with the findings as documented by MOSES Hayden History of Present Illness Reason for Consultation: Gastric outlet obstruction, melena, coffee-ground emesis Attending Physician: Khloe Zimmerman DO History of Present Illness Patient is a 52 yo male who is a current patient of [facility]. Patient has a history of metastatic colon cancer to the liver. He had a colectomy with Dr. Ramirez of [facility] colorectal surgery 3 years ago. He notes he underwent multiple liver resections through [facility] as well. He reports that he continues chemotherapy and did just receive his recent dose. He is following with [facility] for evaluation of a liver transplant. He notes that on 11/16 he developed coffee ground emesis and melena which prompted him to present to the ED. His H/H is presently 9.7/30.2. He had a CT scan of the abdomen/pelvis that indicated concern for gastric outlet obstruction. He notes no further hematemesis/coffee-ground emesis x 24 hours. He has not had anything by mouth since prior to admission yesterday. He notes he started Mounjaro recently. No history of gastric ulcers. He does take Protonix 40 mg daily at home as well as Xarelto which he takes for a history of PE (last dose was 11/15). Full CT report as follows: 1. The stomach is significantly distended and fluid-filled, and the duodenum is normal in caliber. The appearance suggest gastric outlet obstruction. Correlate clinically. 2. The distal esophagus is thick-walled, hyperemic, distended, and fluid-filled. There is mild surrounding inflammation. Correlate clinically for evidence of esophagitis. These findings could be further assessed with endoscopy if clinically warranted. 3. There is postsurgical change from sigmoid colon resection as well as several hepatic resections. 4. An approximately 6.5 x 4 cm low-attenuation focus in the right lobe adjacent to surgical change is nearly water density and likely represents treated disease. 5. There are numerous additional subcentimeter hypodensities in the posterior right lobe of the liver. These are nearly fluid attenuation, and were not seen on prior studies. These are pathologically indeterminate, and could represent new or treated lesions versus cystic change. Correlate with clinical findings and any more recent prior outside imaging studies. 6. Left-sided nephrolithiasis. 7. Splenomegaly. 8. Hepatic steatosis. 9. A hernia in the left ventral abdominal wall contains nonobstructed small bowel 10. Additional findings as above. Allergies Allergy/AdvReac Type Severity Reaction Status Date / Time cetuximab [From Erbitux] Allergy Severe Bronchial Verified 11/16/22 15:54 Spasms Home Medications Medication Instructions Recorded Confirmed Type fluticasone propionate 50 2 spray intranasal DAILY PRN 04/25/18 11/16/22 History mcg/actuation nasal Allergy Symptoms spray,suspension (Flonase Allergy Relief) pantoprazole 40 mg tablet,delayed 40 mg PO QAM 07/22/18 11/16/22 History release (Protonix) metformin 1,000 mg tablet 1,000 mg PO BID 08/02/18 11/16/22 History rivaroxaban 20 mg tablet (Xarelto) 20 mg PO QPM 03/19/19 11/16/22 History baclofen 5 mg tablet 5 mg PO TID PRN Hiccups 11/16/22 11/16/22 History ferrous sulfate 325 mg (65 mg 65 mg PO DAILY 11/16/22 11/16/22 History iron) tablet (iron) loperamide 2 mg capsule 2 mg PO DIRECTED PRN Diarrhea 11/16/22 11/16/22 History losartan 25 mg tablet 25 mg PO DAILY 11/16/22 11/16/22 History ondansetron HCl 8 mg tablet 0 mg PO DIRECTED PRN 11/16/22 11/16/22 History NAUSEA/VOMITING Patient History Medical History (Updated 11/17/22 @ 12:25 by Adrianna Smyth DO) Anemia Colon cancer 02/2018--sx, chemo--metastasized to liver and lymph nodes Diabetes mellitus, type 2 GERD (gastroesophageal reflux disease) History of pulmonary embolism Noted on 09/2018 CT scan of chest Hypertension BORDERLINE Surgical History History of colon resection 01/2019 @ [facility] [place] 6-8 inches removed with portion of liver removed (40%) History of colonoscopy History of colostomy 2017 @ [facility] [place], per pt no colon resection only colostomy History of colostomy reversal 05/2019 @ [facility] [place] during liver sx History of esophagogastroduodenoscopy (EGD) History of surgery of liver 05/2019 @ [facility] [place] another 30% removed at that time History of vascular access device Aport on right side History of wisdom tooth extraction Hx of vasectomy Family History Unknown Family history of diabetes mellitus Aunt Family hx of colon cancer Other No family history of adverse response to anesthesia Social History Smoking Status: Never smoker Second Hand Exposure: Yes (parents/family smoked); Do You Dip or Chew Tobacco: No; Hx Alcohol Use: No Hx Substance Use: No Preferred Language: Cambodian Communication Ability: Effective Block And Case Maker Required: No Beliefs That Will Affect Care: None marital status: Current Living Situation: Spouse Current Living Situation Comment: Lives with and 2 daughters Other Information That Helps Us Care for You: No Feels Safe at Home: Yes Safety Concerns: Feels Safe At This Time Assistive Devices: None Review of Systems Constitutional: no fever and no chills Respiratory: no cough and no dyspnea Gastrointestinal: + coffee ground emesis and + melena; no abdominal pain and no heartburn Integumentary: no problem reported Hematologic / Lymphatic: no unexplained weight loss Physical Exam Constitutional: well developed Respiratory: normal respiratory effort Cardiovascular: Rate/Rhythm: regular rate Gastrointestinal (Abdomen): normal bowel sounds, soft, nontender, no hepatosplenomegaly Psychiatric: Orientation: alert and oriented x 3 Results & Data Vital Signs (Past 12 Hours) Vital Signs Temp Pulse Pulse Resp BP Pulse Ox O2 Del Method 11/17/22 10:22 36.6 C 74 19 104/70 98 Room Air 11/17/22 07:45 91 H 11/17/22 07:01 36.5 C 70 18 99/65 L 98 Room Air 11/17/22 03:37 36.6 C 81 17 118/80 99 Room Air 11/17/22 00:30 36.7 C 87 16 103/66 99 Room Air 11/16/22 23:48 91 H 11/16/22 22:31 Room Air PG Care Time/CCT Total # of Minutes Spent Total Time Spent with Patient: Total time spent is greater than 50% in coordination of care (as documented) at patient's floor/unit and/or counseling patient: Coding Level of Care Code 69099 IN/OBS CONSULT LVL 4,60M Diagnoses Acute upper gastrointestinal bleeding K92.2 Gastric outlet obstruction K31.1 Colon cancer metastasized to liver C18.9; C78.7
[2022-11-17 11:06] LABS: Hematocrit (blood only) 29.3 % (42.0-52.0); Hemoglobin 9.2 g/dl (14.0-18.0)
--- NOTE | 2022-11-17 11:52 | Anesthesiology Consultation ---
Date of Service November 17, 2022 Assessment & Plan (1) Encounter for pre-operative examination: Chart Review Chart Review: Acceptable Risk for Surgery (due to diabetic medication and CT showing gastric outlet obstruction vs gastroparesis will do in OR) History Surgery Operation Date: 11/17/22 16:45 Proposed Procedures p Esophagogastroduodenoscopy Dr. Rosalind Boyer MD Height/Weight Height: 5 ft 10 in Weight: 98.747 kg Allergies Allergy/AdvReac Type Severity Reaction Status Date / Time cetuximab [From Erbitux] Allergy Severe Bronchial Verified 11/16/22 15:54 Spasms Medications Home Medications Medication Instructions Recorded Confirmed Last Taken fluticasone propionate 50 2 spray intranasal DAILY PRN 04/25/18 11/16/22 07/31/18 mcg/actuation nasal Allergy Symptoms spray,suspension (Flonase Allergy Relief) pantoprazole 40 mg tablet,delayed 40 mg PO QAM 07/22/18 11/16/22 11/16/22 release (Protonix) metformin 1,000 mg tablet 1,000 mg PO BID 08/02/18 11/16/22 11/16/22 08:00 rivaroxaban 20 mg tablet (Xarelto) 20 mg PO QPM 03/19/19 11/16/22 11/15/22 baclofen 5 mg tablet 5 mg PO TID PRN Hiccups 11/16/22 11/16/22 Unknown ferrous sulfate 325 mg (65 mg 65 mg PO DAILY 11/16/22 11/16/22 11/15/22 iron) tablet (iron) loperamide 2 mg capsule 2 mg PO DIRECTED PRN Diarrhea 11/16/22 11/16/22 Unknown losartan 25 mg tablet 25 mg PO DAILY 11/16/22 11/16/22 11/16/22 ondansetron HCl 8 mg tablet 0 mg PO DIRECTED PRN 11/16/22 11/16/22 Unknown NAUSEA/VOMITING Active Medications Generic Name Dose Route Start Last Admin Trade Name Freq PRN Reason Stop Dose Admin Pantoprazole Sodium 40 mg/ 10 mls @ 5 mls/min 11/16/22 22:51 11/17/22 08:25 Syringe IV 12/16/22 22:50 5 mls/min BID DOMINGO Administration Parenteral Electrolytes 1,000 mls @ 125 mls/hr 11/16/22 22:51 11/17/22 06:23 Plasma-Lyte A Ph 7.4 IV 12/16/22 22:50 125 mls/hr .Q8H DOMINGO Administration Insulin Aspart 0 units 11/17/22 06:00 11/17/22 06:19 Insulin Aspart Per Unit Charge SC 12/17/22 05:59 1 units Q6 DOMINGO Administration Insulin Glargine 7 units 11/16/22 22:51 11/17/22 08:34 Lantus Per Unit Charge SQ 12/16/22 22:50 4 units BID DOMINGO Administration Past Medical History Medical History Anemia Colon cancer 02/2018--sx, chemo--metastasized to liver and lymph nodes Diabetes mellitus, type 2 GERD (gastroesophageal reflux disease) History of pulmonary embolism Noted on 09/2018 CT scan of chest Hypertension BORDERLINE Past Family History Family History Unknown Family history of diabetes mellitus Aunt Family hx of colon cancer Other No family history of adverse response to anesthesia Past Surgical History Surgical History History of colon resection 01/2019 @ [facility] [place] 6-8 inches removed with portion of liver removed (40%) History of colonoscopy History of colostomy 2017 @ [facility] [place], per pt no colon resection only colostomy History of colostomy reversal 05/2019 @ [facility] [place] during liver sx History of esophagogastroduodenoscopy (EGD) History of surgery of liver 05/2019 @ [facility] [place] another 30% removed at that time History of vascular access device Aport on right side History of wisdom tooth extraction Hx of vasectomy Social History Smoking Status: Never smoker Do You Dip or Chew Tobacco: No Hx Alcohol Use: No Alcohol type: beer and hard liquor alcohol intake frequency: other Hx Substance Use: No substance use type: does not use Physical Exam Vital Signs Last Vital Signs Temp 36.6 C 11/17/22 10:22 Pulse 74 11/17/22 10:22 Resp 19 11/17/22 10:22 BP 104/70 11/17/22 10:22 Pulse Ox 98 11/17/22 10:22 O2 Del Method Room Air 11/17/22 10:22 Testing Laboratory Results 11/17/22 10:41 11/17/22 06:10 PT 16.3 Seconds (9.0-12.0) H 11/16/22 15:07 INR 1.5 (0.9-1.1) H 11/16/22 15:07 APTT 33.0 Seconds (21.0-31.0) H 11/16/22 15:07 Hemoglobin A1c 6.1 % (4.5-5.6) H 11/17/22 06:10 Blood Type O Positive 11/16/22 15:07 Antibody Screen NEGATIVE 11/16/22 15:07 11/17/22 11/17/22 11:50 06:13 POC Glucose 145 H 152 H
[2022-11-17 12:12] LABS: Hematocrit (blood only) 29.6 % (42.0-52.0); Hemoglobin 9.2 g/dl (14.0-18.0); Mean Corpuscular Hemoglobin 28.8 pg (25.0-34.0); Mean Corpuscular Hgb Conc 31.1 g/dL (32.0-36.0); Mean Corpuscular Volume 92.5 fL (80.0-100.0); Mean Platelet Volume 10.6 fL (9.4-12.4); Platelet Count 81 K/uL (130-400); RDW Coefficient of Variation 16.7 % (11.5-14.5); RDW Standard Deviation 56.4 fL (36.4-46.3); White Blood Count 6.65 K/ul (4.8-10.8)
[2022-11-17] MEDS ORDERED: SUCCINYLCHOLINE CHLORIDE 20 MG/ML 10 ML VIAL IV ONE (13:55)
[2022-11-17] MEDS ORDERED: PROPOFOL IV EMULSION 10 MG/ML 20 ML VIAL IV ONE (13:55)
[2022-11-17] MEDS ORDERED: LIDOCAINE 2% 2 ML VIAL/AMP(20MG/ML) INFIL ONE (13:55)
[2022-11-17] MEDS ORDERED: fentaNYL citrate PF 100 MCG/2 ML VIAL ONE (13:56)
[2022-11-17] MEDS ORDERED: HYDROmorphone INJ 2 MG/ML SYR/VIAL IV PRN ×2 (14:03→14:16)
[2022-11-17] MEDS ORDERED: ePHEDrine sulfate 50 MG/ML AMP IV PRN ×2 (14:03→14:16)
[2022-11-17] MEDS ORDERED: ONDANSETRON INJ 2 MG/ML 2 ML VIAL IV PRN ×2 (14:03→14:16)
[2022-11-17] MEDS ORDERED: ATROPINE SULFATE 0.1 MG/ML 10ML SYR IV PRN ×2 (14:03→14:16)
[2022-11-17] MEDS ORDERED: PROMETHAZINE HCL 12.5 MG in SODIUM CHLORIDE 0.9% 50 ML IV PRN (14:03)
[2022-11-17] MEDS ORDERED: fentaNYL citrate PF 100 MCG/2 ML VIAL IV PRN ×2 (14:03→14:16)
--- NOTE | 2022-11-17 14:15 | Anesthesiology Consultation ---
Date of Service November 17, 2022 Assessment & Plan Chart Review Chart Review: Acceptable Risk for Surgery Consults Requested none History Surgery Operation Date: 11/17/22 12:20 Proposed Procedures p Esophagogastroduodenoscopy - Lambert Boyer MD Height/Weight Height: 5 ft 10 in Weight: 98.747 kg Allergies Allergy/AdvReac Type Severity Reaction Status Date / Time cetuximab [From Erbitux] Allergy Severe Bronchial Verified 11/16/22 15:54 Spasms Medications Home Medications Medication Instructions Recorded Confirmed Last Taken fluticasone propionate 50 2 spray intranasal DAILY PRN 04/25/18 11/16/22 07/31/18 mcg/actuation nasal Allergy Symptoms spray,suspension (Flonase Allergy Relief) pantoprazole 40 mg tablet,delayed 40 mg PO QAM 07/22/18 11/16/22 11/16/22 release (Protonix) metformin 1,000 mg tablet 1,000 mg PO BID 08/02/18 11/16/22 11/16/22 08:00 rivaroxaban 20 mg tablet (Xarelto) 20 mg PO QPM 03/19/19 11/16/22 11/15/22 baclofen 5 mg tablet 5 mg PO TID PRN Hiccups 11/16/22 11/16/22 Unknown ferrous sulfate 325 mg (65 mg 65 mg PO DAILY 11/16/22 11/16/22 11/15/22 iron) tablet (iron) loperamide 2 mg capsule 2 mg PO DIRECTED PRN Diarrhea 11/16/22 11/16/22 Unknown losartan 25 mg tablet 25 mg PO DAILY 11/16/22 11/16/22 11/16/22 ondansetron HCl 8 mg tablet 0 mg PO DIRECTED PRN 11/16/22 11/16/22 Unknown NAUSEA/VOMITING Active Medications Generic Name Dose Route Start Last Admin Trade Name Freq PRN Reason Stop Dose Admin Pantoprazole Sodium 40 mg/ 10 mls @ 5 mls/min 11/16/22 22:51 11/17/22 08:25 Syringe IV 12/16/22 22:50 5 mls/min BID DOMINGO Administration Parenteral Electrolytes 1,000 mls @ 125 mls/hr 11/16/22 22:51 11/17/22 06:23 Plasma-Lyte A Ph 7.4 IV 12/16/22 22:50 125 mls/hr .Q8H DOMINGO Administration Insulin Aspart 0 units 11/17/22 06:00 11/17/22 11:58 Insulin Aspart Per Unit Charge SC 12/17/22 05:59 1 units Q6 DOMINGO Administration Insulin Glargine 7 units 11/16/22 22:51 11/17/22 08:34 Lantus Per Unit Charge SQ 12/16/22 22:50 4 units BID DOMINGO Administration NPO Date Last Intake of Fluids: 11/16/22 Time Last Intake of Fluids: 13:30 Date Last Intake of Solids: 11/15/22 Time Last Intake of Solids: 22:00 Past Medical History Medical History (Updated 11/17/22 @ 12:25 by Adrianna Smyth DO) Anemia Colon cancer 02/2018--sx, chemo--metastasized to liver and lymph nodes Diabetes mellitus, type 2 GERD (gastroesophageal reflux disease) History of pulmonary embolism Noted on 09/2018 CT scan of chest Hypertension BORDERLINE Past Family History Family History Unknown Family history of diabetes mellitus Aunt Family hx of colon cancer Other No family history of adverse response to anesthesia Past Surgical History Surgical History History of colon resection 01/2019 @ [facility] [place] 6-8 inches removed with portion of liver removed (40%) History of colonoscopy History of colostomy 2017 @ [facility] [place], per pt no colon resection only colostomy History of colostomy reversal 05/2019 @ [facility] [place] during liver sx History of esophagogastroduodenoscopy (EGD) History of surgery of liver 05/2019 @ [facility] [place] another 30% removed at that time History of vascular access device Aport on right side History of wisdom tooth extraction Hx of vasectomy Social History Smoking Status: Never smoker Do You Dip or Chew Tobacco: No Hx Alcohol Use: No Alcohol type: beer and hard liquor alcohol intake frequency: other Hx Substance Use: No substance use type: does not use Physical Exam Vital Signs Last Vital Signs Temp 37 C 11/17/22 13:56 Pulse 78 11/17/22 13:56 Resp 18 11/17/22 13:56 BP 99/66 L 11/17/22 13:56 Pulse Ox 98 11/17/22 13:56 O2 Del Method Room Air 11/17/22 13:56 Testing Laboratory Results 11/17/22 11:46 11/17/22 06:10 PT 16.3 Seconds (9.0-12.0) H 11/16/22 15:07 INR 1.5 (0.9-1.1) H 11/16/22 15:07 APTT 33.0 Seconds (21.0-31.0) H 11/16/22 15:07 Hemoglobin A1c 6.1 % (4.5-5.6) H 11/17/22 06:10 Blood Type O Positive 11/16/22 15:07 Antibody Screen NEGATIVE 11/16/22 15:07 11/17/22 11/17/22 11/17/22 14:04 11:50 06:13 POC Glucose 133 H 145 H 152 H
[2022-11-17] MEDS ORDERED: METOCLOPRAMIDE HCL INJ 5 MG/ML 2 ML VIAL IV PRN (14:16)
[2022-11-17] MEDS ORDERED: MIDAZOLAM HCL 1 MG/ML 2ML VIAL ONE (14:41)
[2022-11-17] MEDS ORDERED: NEOSTIGMINE METHYLSULFATE 1 MG/ML 10ML VIAL ONE (15:44)
[2022-11-17] MEDS ORDERED: LABETALOL HCL IV 5 MG/ML 20ML IV ONE (15:44)
[2022-11-17] MEDS ORDERED: GLYCOPYRROLATE 0.2 MG/ML VIAL ONE (15:44)
[2022-11-17] MEDS ORDERED: ESMOLOL HCL INJ 10 MG/ML 10ML VIAL IV ONE (15:44)
--- NOTE | 2022-11-17 15:52 | GI REPORT ---
Patient Name: Naun Santamaria Procedure Date: 11/17/2022 3:05 PM Date of : 1970 Admit Type: Inpatient Age: 52 Gender: Male Attending MD: Lambert Boyer MD, Procedure: Upper GI endoscopy Providers: Lambert Boyer MD Referring MD: Khloe Zimmerman Do Indications: Coffee-ground emesis, Melena, Abnormal CT of the GI tract Medicines: Monitored Anesthesia Care Complications: bleeding in esophagus stopped with epinephrine injection Estimated Blood Loss: Estimated blood loss: none. Procedure: Pre-Anesthesia Assessment: - Prior Anticoagulants: The patient has taken Xarelto (rivaroxaban). - ASA Grade Assessment: III - A patient with severe systemic disease. After obtaining informed consent, the endoscope was passed under direct vision. Throughout the procedure, the patient's blood pressure, pulse, and oxygen saturations were monitored continuously. The Endoscope was introduced through the mouth, and advanced to the second part of duodenum. The upper GI endoscopy was accomplished without difficulty. The patient tolerated the procedure well. Findings: Moderately severe esophagitis with bleeding after biopsy was found in the mid and distal esophagus. Biopsies were taken with a cold forceps for histology, and to control bleeding Area was successfully injected with 5 mL of a 0.1 mg/mL solution of epinephrine for hemostasis of bleeding caused by the procedure. Diffuse mildly erythematous mucosa without bleeding was found in the stomach. Biopsies were taken with a cold forceps for Helicobacter pylori testing. Estimated blood loss: none. Excessive fluid was found in the gastric fundus and in the gastric body consistent with gastric outlet obstruction, suctioned out. A deformity was found at the pylorus. A TTS dilator was passed through the scope. Dilation with a 10-11-12 mm pyloric balloon dilator was performed up to 10.5 mm. The dilation site was examined following endoscope reinsertion and showed mild improvement in luminal narrowing. Estimated blood loss: none. The duodenum appeared dilated. Impression: - Moderately severe esophagitis with bleeding. Biopsied. Injected. - Erythematous mucosa in the stomach. Biopsied. - Excessive gastric fluid. - Deformity in the pylorus. Dilated. Recommendation: - Return patient to [facility] for ongoing care. - Clear liquid diet today. - Await pathology results. -carafate liquid 15 mL QID -protonix 40 mg IV BID -supportive care, trend H/H, transfuse prn Lambert Boyer MD 11/17/2022 3:52:02 PM This report has been signed electronically. Note Initiated On: 11/17/2022 3:05 PM Number of Addenda: 0 I attest to the content of the Intraoperative Record and orders documented therein, exceptions below {[id number]}
--- NOTE | 2022-11-17 15:53 | Procedure Note ---
Procedure Note Date of Service November 17, 2022 Note GI procedure note EGD findings: severe ulcerative esophaigits that bled after biopsy, injected with epinephrine for hemostasis. gastric outlet obstruction and deformity of pylorus, dilated to 10.5 mm with balloon. recs: carafate liquid 15mL QID protonix IV 40 mg BID supportive care, IVFs clear liquid diet Lambert Boyer MD Gastroenterology Coding
[2022-11-17] MEDS ORDERED: ROCURONIUM BROMIDE 10 MG/ML 5 ML VIAL IV ONE (15:59)
--- NOTE | 2022-11-17 16:00 | Anesthesiology Progress Note ---
Date of Service November 17, 2022 Anesthesia Post Procedure Vital Signs Vital Signs: Temp Pulse Pulse Resp BP Pulse Ox O2 Del Method 11/17/22 15:22 76 11/17/22 13:56 37 C 78 18 99/66 L 98 Room Air 11/17/22 10:22 36.6 C 74 19 104/70 98 Room Air 11/17/22 07:45 91 H 11/17/22 07:01 36.5 C 70 18 99/65 L 98 Room Air 11/17/22 03:37 36.6 C 81 17 118/80 99 Room Air 11/17/22 00:30 36.7 C 87 16 103/66 99 Room Air 11/16/22 23:48 91 H 11/16/22 22:31 Room Air 11/16/22 21:40 91 H 14 113/79 92 11/16/22 19:44 91 H 20 114/82 96 Room Air 11/16/22 18:58 95 H 11/16/22 17:39 88 19 122/84 99 Room Air Transfer of Care Handoff Completed per policy Notes Mental Status: alert / awake / arousable and participated in evaluation Patient Amnestic to Procedure: Yes Nausea / Vomiting: adequately controlled Pain: adequately controlled Airway Patency, RR, SpO2: stable & adequate BP & HR: stable & adequate Hydration State: stable & adequate Anesthetic Complications: no major complications apparent
[2022-11-17] MEDS: SUCRALFATE 1 GM/10 ML UDC PO SCH ×2 (16:44→20:30)
[2022-11-17 17:07] LABS: Hematocrit (blood only) 32.2 % (42.0-52.0); Hemoglobin 10.1 g/dl (14.0-18.0)
[2022-11-17] MEDS ORDERED: Nursing to Pharmacy Communication SCH (17:30)
[2022-11-18] MEDS: PLASMA-LYTE A 1,000 ML IV SCH ×4 (01:00→23:35)
[2022-11-18 06:00] LABS: Hematocrit (blood only) 28.3 % (42.0-52.0); Hemoglobin 8.9 g/dl (14.0-18.0); Mean Corpuscular Hemoglobin 28.4 pg (25.0-34.0); Mean Corpuscular Hgb Conc 31.4 g/dL (32.0-36.0); Mean Corpuscular Volume 90.4 fL (80.0-100.0); Mean Platelet Volume 10.4 fL (9.4-12.4); Platelet Count 75 K/uL (130-400); RDW Coefficient of Variation 16.8 % (11.5-14.5); RDW Standard Deviation 54.6 fL (36.4-46.3); Red Blood Count 3.13 M/uL (4.70-6.10); White Blood Count 4.61 K/ul (4.8-10.8)
[2022-11-18 06:11] LABS: BUN Creatinine Ratio 13.4 (10-20); Calcium 7.2 mg/dl (8.6-10.3); Creatinine Clr Calc Pharmacy 121.1 ml/min; Est GFR (African American) 116.2 ml/min; Est GFR (Non-African American) 100.3 ml/min; Potassium 3.4 mmol/L (3.5-5.1)
[2022-11-18 06:39] LABS: Basophils # (auto) 0.02 K/uL (0-0.2); Basophils % (auto) 0.4 %; Eosinophils # (auto) 0.01 K/uL (0-0.50); Eosinophils % (auto) 0.2 %; Immature Granulocytes # (auto) 0.06 K/uL (0.01-0.20); Immature Granulocytes % (auto) 1.3 %; Lymphocytes # (auto) 1.02 K/uL (1.2-3.4); Lymphocytes % (auto) 22.1 %; Monocytes # (auto) 0.08 K/uL (0.11-0.59); Monocytes % (auto) 1.7 %; Neutrophils # (auto) 3.42 K/uL (1.40-6.50); Neutrophils % (auto) 74.3 %; Tear Drop Cells 1+
--- NOTE | 2022-11-18 07:37 | Hospitalist Progress Note ---
Date of Service November 18, 2022 Assessment & Plan (1) Acute blood loss anemia: Plan: Pt is a 52 yo male with a past medical history of DMT2, colon cancer with liver metastasis, pulmonary embolism, prior catheter associated bacteremia/infection, GERD, and iron deficiency who presents on 11/16 with coffee-ground emesis and melena x 24 hours. 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 Fishman [facility]), now on additional chemo for recurrent liver disease - Dr. Crfat notified - Tumor in the liver identified earlier in August, for which he is now on chemo. - Has not had a colonoscopy 'in some time' but is being evaluated for liver transplant with [facility] and is pending an update. No known local/colon recurrent malignancy. - descending colectomy, s/p ostomy and reversal. Doing well from that perspective. #Hypertension - BP today has been 110s systolic - will restart losartan tomorrow if pt tolerating oral intake #History of PE/DVT - After starting chemo was found to have DVT/PE in 2019 - On Xarelto since with no prior complications. Patient reports he has had subsequent CTAs which have been clear - Xarelto held for bleed, #Elevated Troponin - 120 on admission, then 68, suspect demand ischemia - No personal history of VA/CAD - Father with VA at age 36, heavy tobacco use. VA/CAD on maternal and paternal side of the family - Echo last Sunday with [facility] as part of transplant assessment was normal, - pt asymptomatic #T2DM -Mounjaro recently started, this is held due to possible contributing to gastroparesis Sliding scale, basal bolus while inpatient weight-based Goal BSG [id number] DVT prophylaxis: SCDs (pharmacal prophylaxis contraindicated in the setting of bleed) Diet: clear liquid diet Disposition: PCU CODE STATUS: Full code (2) Acute upper gastrointestinal bleeding: (3) Gastric outlet obstruction: (4) Diabetes mellitus, type 2: (5) History of pulmonary embolism: (6) Colon cancer metastasized to liver: Admission and Anticipated Discharge Date Admission Date: November 16, 2022 Supervising Physician Co-Signing Physician Notes I personally examined the patient and verified all garcia points of history and exam, discussed case, and agree with decision making and plan documented by Dr. Soriano. Hemoglobin stable. Patient tolerating liquids, plan to advance diet tomorrow. Subjective Pt is a 52 yo male with a past medical history of DMT2, colon cancer with liver metastasis, pulmonary embolism, prior catheter associated bacteremia/infection, GERD, and iron deficiency who presents on 11/16 with coffee-ground emesis and melena x 24 hours. Today, pt states that he has been feeling well overall. He has been tolerating liquids without nausea or vomiting, but does feel a little bloated. He notes that he has not had a bowel movement since last night, which was dark still. Otherwise, pt states that he is feeling good today and has no further questions or complaints. Review of Systems Review of Systems: Constitutional: denies fever, chills, HEENT: denies congestion, sore throat Cardio: denies chest pain, palpitations Resp: denies shortness of breath, cough GI: denies abdominal pain, nausea, vomiting, constipation, diarrhea, +bloated Physical Exam Physical Exam: General:Alert and oriented, no acute distress, HEENT: Normocephalic, moist oral mucosa, Cardio: Regular rate and rhythm, no murmur, Resp:Lungs clear to auscultation b/l, no wheezes or rhonchi, GI: Soft and nontender, nondistended, bowel sounds active Skin: Warm, pink, dry, Psych: Mood-affect congruence. Results & Data Results & Data Vital Signs (Past 12 Hours) Vital Signs Temp Pulse Pulse Resp BP Pulse Ox O2 Del Method 11/18/22 07:04 36.5 C 70 21 119/80 98 Room Air 11/18/22 04:04 36.6 C 69 17 125/80 98 Room Air 11/18/22 01:34 68 11/17/22 23:48 36.6 C 74 19 111/73 95 Room Air Resident Activity Tracking Resident Involvement: Resident Care Provided Care Provided: Adult Hospital Medicine
[2022-11-18] MEDS: LANTUS PER UNIT CHARGE SQ SCH ×2 (08:25→19:57)
[2022-11-18] MEDS: INSULIN ASPART PER UNIT CHARGE SC SCH ×4 (08:25→19:50)
[2022-11-18] MEDS: PANTOprazole 40 MG in SYRINGE 0 ML IV SCH ×2 (08:26→19:49)
[2022-11-18] MEDS: SUCRALFATE 1 GM/10 ML UDC PO SCH ×4 (08:26→19:49)
[2022-11-18] MEDS ORDERED: METOCLOPRAMIDE HCL INJ 5 MG/ML 2 ML VIAL IV ONE (13:41)
--- NOTE | 2022-11-18 13:41 | Gastroenterology Progress Note ---
Date of Service November 18, 2022 Assessment & Plan Admission and Anticipated Discharge Date Admission Date: November 16, 2022 Subjective No complaints. Rudy clears. Denies abd distention, n/v, reflux. Few liquid BM's. On exam, appears comfortable Abd soft and non tender Labs reviewed - hgb 9 from 10 from 9. BUN 11 A/P: Esophagitis Gastroparesis (Mounjaro, baclofen) vs GOO - Hgb stable , will follow. Reglan 5 IV TID. Cont PPI IV BID , carafate. Clears today, consider adv tomorrow. Results & Data Vital Signs (Past 12 Hours) Vital Signs Temp Pulse Pulse Resp BP Pulse Ox O2 Del Method 11/18/22 10:28 36.6 C 71 20 114/79 98 Room Air 11/18/22 07:30 69 11/18/22 07:04 36.5 C 70 21 119/80 98 Room Air 11/18/22 04:04 36.6 C 69 17 125/80 98 Room Air
[2022-11-18 17:18] LABS: Basophils # (auto) 0.03 K/uL (0-0.2); Basophils % (auto) 0.8 %; Eosinophils # (auto) 0.01 K/uL (0-0.50); Eosinophils % (auto) 0.3 %; Hematocrit (blood only) 28.3 % (42.0-52.0); Hemoglobin 8.8 g/dl (14.0-18.0); Immature Granulocytes # (auto) 0.05 K/uL (0.01-0.20); Immature Granulocytes % (auto) 1.3 %; Lymphocytes % (auto) 20.1 %; Mean Corpuscular Hgb Conc 31.1 g/dL (32.0-36.0); Mean Corpuscular Volume 93.4 fL (80.0-100.0); Mean Platelet Volume 11.8 fL (9.4-12.4); Monocytes # (auto) 0.07 K/uL (0.11-0.59); Monocytes % (auto) 1.8 %; Neutrophils # (auto) 3.03 K/uL (1.40-6.50); Neutrophils % (auto) 75.7 %; Platelet Count 86 K/uL (130-400); RDW Coefficient of Variation 16.9 % (11.5-14.5); RDW Standard Deviation 57.6 fL (36.4-46.3); Red Blood Count 3.03 M/uL (4.70-6.10); White Blood Count 3.99 K/ul (4.8-10.8)
[2022-11-19 06:19] LABS: BUN Creatinine Ratio 8.4 (10-20); Creatinine Clr Calc Pharmacy 119.7 ml/min; Est GFR (African American) 115.6 ml/min; Est GFR (Non-African American) 99.8 ml/min; Hemoglobin 8.4 g/dl (14.0-18.0); Mean Corpuscular Hgb Conc 31.1 g/dL (32.0-36.0); Mean Corpuscular Volume 93.1 fL (80.0-100.0); Mean Platelet Volume 10.6 fL (9.4-12.4); Platelet Count 68 K/uL (130-400); Potassium 3.6 mmol/L (3.5-5.1); RDW Coefficient of Variation 16.5 % (11.5-14.5); RDW Standard Deviation 55.4 fL (36.4-46.3); White Blood Count 1.35 K/ul (4.8-10.8)
[2022-11-19 06:36] LABS: Basophils # (auto) 0.02 K/uL (0-0.2); Basophils % (auto) 1.5 %; Eosinophils # (auto) 0.02 K/uL (0-0.50); Eosinophils % (auto) 1.5 %; Immature Granulocytes # (auto) 0.08 K/uL (0.01-0.20); Immature Granulocytes % (auto) 5.9 %; Lymphocytes # (auto) 0.37 K/uL (1.2-3.4); Lymphocytes % (auto) 27.4 %; Monocytes # (auto) 0.04 K/uL (0.11-0.59); Neutrophils # (auto) 0.82 K/uL (1.40-6.50); Neutrophils % (auto) 60.7 %
--- NOTE | 2022-11-19 06:50 | Hospitalist Progress Note ---
Date of Service November 19, 2022 Assessment & Plan (1) Acute blood loss anemia: Plan: Pt is a 52 yo male with a past medical history of DMT2, colon cancer with liver metastasis, pulmonary embolism in 2019, prior catheter associated bacteremia/infection, GERD, and iron deficiency who presents on 11/16 with coffee-ground emesis and melena x 24 hours. 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 Fishman [facility]), now on additional chemo for recurrent liver disease - Dr. Craft notified - Tumor in the liver identified earlier in August, for which he is now on chemo. - Has not had a colonoscopy 'in some time' but is being evaluated for liver transplant with [facility] and is pending an update. No known local/colon recurrent malignancy. - descending colectomy, s/p ostomy and reversal. Doing well from that perspective. #Hypertension - BP today has been 110s systolic, controlled - may restart losartan tomorrow if pt tolerating further oral intake #History of PE/DVT - After starting chemo was found to have DVT/PE in 2019 - On Xarelto since with no prior complications. Patient reports he has had subsequent CTAs which have been clear - Xarelto held for bleed, #Elevated Troponin - 120 on admission, then 68, suspect demand ischemia - No personal history of TX/CAD - Father with TX at age 36, heavy tobacco use. TX/CAD on maternal and paternal side of the family - Echo last Sunday with [facility] as part of transplant assessment was normal, - pt asymptomatic #T2DM -Mounjaro recently started, this is held due to possible contributing to gastroparesis Sliding scale, basal bolus while inpatient weight-based Goal BSG [id number] DVT prophylaxis: SCDs (pharmacal prophylaxis contraindicated in the setting of bleed) Disposition: PCU CODE STATUS: Full code (2) Acute upper gastrointestinal bleeding: (3) Gastric outlet obstruction: (4) Diabetes mellitus, type 2: (5) History of pulmonary embolism: (6) Colon cancer metastasized to liver: Admission and Anticipated Discharge Date Admission Date: November 16, 2022 Supervising Physician Co-Signing Physician Notes I personally examined the patient and verified all garcia points of history and exam, discussed case, and agree with decision making and plan documented by Dr. Soriano. Patient with clinical improvement. Plan to advance diet as tolerated, patient tolerating full liquids well. Patient with worsening pancytopenia, patient due for Neulasta injection, Dr. Soriano discussed with oncology and Neupogen ordered. Xarelto to be restarted tomorrow if hemoglobin remains stable and no signs of bleeding. Subjective Pt is a 52 yo male with a past medical history of DMT2, colon cancer with liver metastasis, pulmonary embolism, prior catheter associated bacteremia/infection, GERD, and iron deficiency who presents on 11/16 with coffee-ground emesis and melena x 24 hours. Today, pt states that he is feeling good. He was been tolerating clear liquids without difficulty and had a few BMs since yesterday morning that progressively have looked more normal and contained less dark blood. He states his last BM this morning seemed to be free of blood. He states his feeling of being a bit bloated yesterday has seemed to resolve. He is overall doing well. No questions or concerns at this time. Review of Systems Review of Systems: Constitutional: denies fever, chills, Cardio: denies chest pain, palpitations Resp: denies shortness of breath, cough GI: denies abdominal pain, nausea, vomiting, Physical Exam Physical Exam: General:Alert and oriented, no acute distress, HEENT: Normocephalic, moist oral mucosa, Cardio: Regular rate and rhythm, no murmur, Resp:Lungs clear to auscultation b/l, no wheezes or rhonchi, GI: Soft and nontender, nondistended, bowel sounds active Skin: Warm, pink, dry, Psych: Mood-affect congruence. Results & Data Results & Data Vital Signs (Past 12 Hours) Vital Signs Temp Pulse Pulse Pulse Resp BP Pulse Ox 11/19/22 03:44 36.6 C 74 16 125/82 96 11/18/22 23:41 72 11/18/22 19:35 11/18/22 21:59 36.6 C 76 16 128/81 98 11/18/22 19:28 36.6 C 83 83 16 115/77 98 O2 Del Method 11/19/22 03:44 Room Air 11/18/22 23:41 11/18/22 19:35 Room Air 11/18/22 21:59 Room Air 11/18/22 19:28 Room Air Resident Activity Tracking Resident Involvement: Resident Care Provided Care Provided: Adult Hospital Medicine
[2022-11-19] MEDS: PLASMA-LYTE A 1,000 ML IV SCH (07:19)
[2022-11-19] MEDS: INSULIN ASPART PER UNIT CHARGE SC SCH ×4 (08:01→20:28)
[2022-11-19] MEDS: SUCRALFATE 1 GM/10 ML UDC PO SCH ×4 (08:02→20:27)
[2022-11-19] MEDS: LANTUS PER UNIT CHARGE SQ SCH ×2 (08:02→20:27)
[2022-11-19] MEDS: PANTOprazole 40 MG in SYRINGE 0 ML IV SCH ×2 (08:02→20:27)
--- NOTE | 2022-11-19 12:43 | Gastroenterology Progress Note ---
Date of Service November 19, 2022 Assessment & Plan Admission and Anticipated Discharge Date Admission Date: November 16, 2022 Subjective No complaints. Labs show worsening pancytopenia. A/P: Cont adv diet as tolerated. Continue IV Reglan while in hospital. Cont carafate, Protonix. Second look endoscopy per [facility]. Discussed pancytopenia/worsening neutropenia with primary service - will defer management to hospitalist. Results & Data Vital Signs (Past 12 Hours) Vital Signs Temp Pulse Pulse Resp BP Pulse Ox O2 Del Method 11/19/22 10:23 36.7 C 76 18 113/76 99 Room Air 11/19/22 07:30 72 11/19/22 07:01 36.8 C 81 18 113/74 95 Room Air 11/19/22 03:44 36.6 C 74 16 125/82 96 Room Air
[2022-11-19] MEDS: FILGRASTIM 480 MCG/1.6 ML VIAL SC SCH (16:06)
--- NOTE | 2022-11-20 06:54 | Hospitalist Progress Note ---
Date of Service November 20, 2022 Assessment & Plan (1) Acute blood loss anemia: Plan: Pt is a 52 yo male with a past medical history of DMT2, colon cancer with liver metastasis, pulmonary embolism in 2019, prior catheter associated bacteremia/infection, GERD, and iron deficiency who presents on 11/16 with coffee-ground emesis and melena x 24 hours. 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 Fishman [facility]), now on additional chemo for recurrent liver disease - Dr. Craft notified - Tumor in the liver identified earlier in August, for which he is now on chemo. - Has not had a colonoscopy 'in some time' but is being evaluated for liver transplant with [facility] and is pending an update. No known local/colon recurrent malignancy. - descending colectomy, s/p ostomy and reversal. Doing well from that perspective. #Hypertension - BP today has been 110s systolic, controlled - may restart losartan tomorrow if pt tolerating further oral intake #History of PE/DVT - After starting chemo was found to have DVT/PE in 2019 - On Xarelto since with no prior complications. Patient reports he has had subsequent CTAs which have been clear - Xarelto held for bleed, #Elevated Troponin - 120 on admission, then 68, suspect demand ischemia - No personal history of VT/CAD - Father with VT at age 36, heavy tobacco use. VT/CAD on maternal and paternal side of the family - Echo last Sunday with [facility] as part of transplant assessment was normal, - pt asymptomatic #T2DM -Mounjaro recently started, this is held due to possible contributing to gastroparesis Sliding scale, basal bolus while inpatient weight-based Goal BSG [id number] DVT prophylaxis: SCDs (pharmacal prophylaxis contraindicated in the setting of bleed) Disposition: PCU CODE STATUS: Full code (2) Acute upper gastrointestinal bleeding: (3) Gastric outlet obstruction: (4) Diabetes mellitus, type 2: (5) History of pulmonary embolism: (6) Colon cancer metastasized to liver: Admission and Anticipated Discharge Date Admission Date: November 16, 2022 Subjective Pt is a 52 yo male with a past medical history of DMT2, colon cancer with liver metastasis, pulmonary embolism in 2019, prior catheter associated bacteremia/infection, GERD, and iron deficiency who presents on 11/16 with coffee-ground emesis and melena x 24 hours. Today, pt states that he has been feeling well. He states that he tolerated full liquid diet this morning without difficulty. He states that he overall feels great and wants to go home, but only once our team feels he is ready to go. He has been having BMs that have been nonbloody. No further questions or complaints at this time. Review of Systems Review of Systems: Constitutional: denies fever, chills, Cardio: denies chest pain, palpitations Resp: denies shortness of breath, cough GI: denies abdominal pain, nausea, vomiting, Physical Exam Physical Exam: General:Alert and oriented, no acute distress, HEENT: Normocephalic, moist oral mucosa, Cardio: Regular rate and rhythm, no murmur, Resp:Lungs clear to auscultation b/l, no wheezes or rhonchi, GI: Soft and nontender, nondistended, bowel sounds active Skin: Warm, pink, dry, Psych: Mood-affect congruence. Results & Data Results & Data Vital Signs (Past 12 Hours) Vital Signs Temp Pulse Pulse Resp BP Pulse Ox O2 Del Method 11/20/22 03:49 36.8 C 16 L 76 16 105/73 98 Room Air 11/19/22 23:34 36.9 C 71 16 112/74 97 Room Air 11/19/22 19:52 36.8 C 74 16 122/81 100 Room Air
[2022-11-20] MEDS: LANTUS PER UNIT CHARGE SQ SCH (08:18)
[2022-11-20] MEDS: INSULIN ASPART PER UNIT CHARGE SC SCH ×3 (08:19→16:57)
[2022-11-20] MEDS: SUCRALFATE 1 GM/10 ML UDC PO SCH ×3 (08:26→16:57)
[2022-11-20] MEDS: PANTOprazole 40 MG in SYRINGE 0 ML IV SCH (08:26)
[2022-11-20] MEDS: FILGRASTIM 480 MCG/1.6 ML VIAL SC SCH (08:27)
[2022-11-20 08:35] LABS: Hematocrit (blood only) 29.8 % (42.0-52.0); Hemoglobin 9.2 g/dl (14.0-18.0); Mean Corpuscular Hemoglobin 28.9 pg (25.0-34.0); Mean Corpuscular Hgb Conc 30.9 g/dL (32.0-36.0); Mean Corpuscular Volume 93.7 fL (80.0-100.0); Platelet Count 77 K/uL (130-400); RDW Coefficient of Variation 16.1 % (11.5-14.5); Red Blood Count 3.18 M/uL (4.70-6.10); White Blood Count 1.44 K/ul (4.8-10.8)
[2022-11-20 08:39] LABS: ALC (manual) 0.66 K/uL (1.2-3.4); ANC (manual) 0.75 K/uL (1.4-6.5); Basophils # (manual) 0.01 K/uL (0-0.2); Basophils % (manual) 1 %; Eosinophils # (manual) 0.01 K/uL (0-0.50); Eosinophils % (manual) 1 %; Lymphocytes # (manual) 0.66 K/uL (1.2-3.4); Lymphocytes % (manual) 46 %; Neutrophils # (manual) 0.75 K/uL (1.40-6.50); Neutrophils % (manual) 52 %; Polychromasia 1+; Tear Drop Cells 1+
--- NOTE | 2022-11-20 09:56 | Communication Note ---
Date of Service: November 20, 2022 Patient tells me he is feeling well currently. he ate cream of wheat and pudding for breakfast and tells me he had no issue with this. passing stool/gas. he denies any nausea, vomiting, abdominal pain, dysphagia. hgb improved from 8.4 to 9.2. continue with protonix 40mg IV BID and carafate 1 gm qid. he has history of colon cancer with liver metastasis. He follows with [facility] and [facility]. He will need to follow up there as outpatient. He tells me that he is being planned for colonoscopy as outpatient as recommended by [facility]. Per Dr. Boyer, recommend repeat EGD in 6-8 weeks to assess healing of esophagus. Can be done through his regular manager house[facility] at [facility].
--- NOTE | 2022-11-20 17:25 | Discharge Summary ---
Date of Service November 20, 2022 Admission HPI Per Admitting Provider Trent is a 52-year-old male with a past medical history of type II DM, colon cancer with liver metastasis, pulmonary embolism, prior catheter associated bacteremia/infection, GERD, and iron deficiency who presents with coffee-ground emesis and melena x 24 hours. He has a history of PE for which she is on rivaroxaban and took evening of 11/15. He has not had syncope/presyncope/chest pain/dyspnea. His is 12.4 on admission, last 11.9 and 11/13/2022, and baseline appears approximately 1315 and was last near baseline on 10/31. Vomiting GIB on chemo. Colon cancer w/ liver mets. Black BM heme positive. Had chemo yesterday. 1 day of nausea/vomiting. Melena + dark emesis. Currently not passing any gas, +burping and belching more than normal No chest pain or chest pressure +lightheadedness dizziness earlier which resolved post fluids. [place] deyhydrated and had not eaten No fevers, chills, or sweats - Strong family history of CAD. Father few HI (heavy smoker, CHF). 2x uncles with HI. Father had first heart attack at age 36. Medical History: Reviewed Medications: Reviewed Surgical History: Reviewed Family history: Reviewed Allergies: Reviewed Social History: no tobacoc/etoh Code Status: Full Principal Diagnosis GI bleedsee hospital course Discharge Exam in general he is awake and alert pleasant no distress. HEENT normocephalic atraumatic mucous membranes moist. Breathing unlabored no accessory muscle use good effort. Skin shows no rashes no pallor or icterus. Neuro without focal deficits. Discharge Data Allergies Allergy/AdvReac Type Severity Reaction Status Date / Time cetuximab [From Erbitux] Allergy Severe Bronchial Verified 11/16/22 15:54 Spasms Consultations 11/16/22 16:36 ED Decision to Admit Stat 11/16/22 22:51 Consult Gastroenterology Routine Procedures Performed Operation Date: 11/17/22 12:20 Actual Procedures p Esophagogastroduodenoscopy, Biopsy, Dilation, Hemostasis - Lambert Boyer MD Ordered Studies 11/16/22 14:06 CT abd pelvis IV con only Stat Hospital Course (1) Acute blood loss anemia: Pt is a 52 yo male with a past medical history of DMT2, colon cancer with liver metastasis, pulmonary embolism in 2019, prior catheter associated bacteremia/infection, GERD, and iron deficiency who presents on 11/16 with coffee-ground emesis and melena x 24 hours. #Acute upper gastrointestinal bleeding, - Patient presented with hematemesis and 1 day of melena - hemoglobin 12.4 on admission, 10.1 yesterday, today 8.9 - CT showed gastric outlet obstruction -Patient recently started Mounjaro 5 to 6 weeks ago, which can contribute to gastroparesis, holding GI consulted, EGD = severe ulcerative esophagitis and gastric outlet obstruction with deformity of pylorus - will continue carafate liquid 15mL QID, protonix 40 mg BID, Outpatient GI follow-up - tolerating dietgastric outlet obstruction symptoms have resolved (likely pharmacologic effect to GLP)safe/stable for home, outpatient PCP and GI follow- up, strict instructions to patient to return sooner rather than later if he has any recurrence of bloating/nausea/early satiety. 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 Gallardo [facility]), now on additional chemo for recurrent liver disease - Dr. Craft notified - Tumor in the liver identified earlier in August, for which he is now on chemo. - Has not had a colonoscopy 'in some time' but is being evaluated for liver transplant with [facility] and is pending an update. No known local/colon recurrent malignancy. - descending colectomy, s/p ostomy and reversal. Doing well from that perspective. #Hypertension - BP reasonable given the circumstances #History of PE/DVT - After starting chemo was found to have DVT/PE in 2019 - On Xarelto since with no prior complications. Patient reports he has had subsequent CTAs which have been clear - Xarelto held for bleed, but tolerating heparin drip wellresuming Xarelto #Elevated Troponin - 120 on admission, then 68, suspect demand ischemia - No personal history of HI/CAD - Father with HI at age 36, heavy tobacco use. HI/CAD on maternal and paternal side of the family - Echo last Sunday with [facility] as part of transplant assessment was normal, - pt asymptomatic #T2DM -Mounjaro recently started, this is held due to possible contributing to gastroparesis given tight A1c numbers, as well as being a patient currently on chemotherapy, as well as the fact that his GLP may be the culprit for his gastric outlet obstructiondiscontinuing safe/stable [facility] on red flags for follow-up, close PCP, GI, oncology follow-up, labs later this week (2) Acute upper gastrointestinal bleeding: (3) Gastric outlet obstruction: (4) Diabetes mellitus, type 2: (5) History of pulmonary embolism: (6) Colon cancer metastasized to liver: Home Health Attestation I certify that this patient is under my care and that I, or a physicians real estate administrative assistant working with me, had a face to-face encounter that meets the home health qprr-ge-[id number] encounter requirements with this patient. The encounter with the patient was in whole, or in part, for the following med ical condition, which is the primary reason for home health care (list medical condition): I certify that, based on my findings, the following services are medically necessary home health services: My clinical findings support the need for the above services because: Further, I certify that my clinical findings support that this patient is homebound (i.e. absences from home require considerable and taxing effort and are for medical reasons or mormonism services or infrequently or of short duration when for other reasons) because: Certification for Home Health Services: Based on the above findings, I certify that this patient is confined to the home and needs intermittent halfway care, physical therapy and/or speech therapy or continues to need occupational therapy. The patient is under my care, and I have initiated the establishment of the plan of care. This patient will be followed by a physician who will periodically review the plan of care. Total Time Total Time Spent Total Time Spent (In Minutes): less than 30 Discharge Plan Discharge Items Patient Disposition: Home - Self-Care Reason For Visit: GOJessica GIB Discharge Diagnosis: Gastrointestinal bleed Activity: Resume your previous activity Non-emergency contact: Primary Care Provider and Oncologist Call non-emergency contact if: you have any medication questions and your temperature is above 101.5 Follow-up/Referrals: Gera Giles MD [Primary Care Provider] - Diet: Regular Addtl Attending Provider Instructions: You were admitted for acute gastrointestinal bleed. You were treated with an upper GI scope (EGD) and bowel rest with gradual return to normal oral intake. Your symptoms have improved, and we feel it is safe for you to return home. Medications: Your medication list has been reviewed and reconciled upon discharge to ensure accuracy and continuity of care. An updated list of all your medications is included with your hospital discharge paperwork. Please review this list closely, and make note of any changes. We sent a new medication called [med name] to your pharmacy. Take [med name] ([dose]mg) [number of tablets] [frequency] [for _ days]. [COPY AND PASTE THIS LINE FOR EACH NEW DC MED] Please restart your normal home medications upon discharge from the hospital except for the ones noted below. Please resume your Xarelto for blood clot prevention when you get home as well. Please discontinue the following home medications until seen by a provider after leaving the hospital: 1.) Baclofen 2.) Jardiance (empagliflozin) Resume all other medications. If you have any issues filling these prescriptions, please call [phone] and ask to leave a message for Dr. Soriano. Take your medications as instructed; do not skip a dose of your medicines. Make sure all of your doctors know every medicine you are taking (including xkgx-[id number] medicines, vitamins, and supplements). Call your primary care provider before taking any new medicines (including over- the-counter medicines, vitamins, and supplements), because some of these may interact with your current medications, or may make your symptoms worse. Tell your primary care provider if you cannot afford your medications. Activity: You can do normal everyday activities as your body allows. Take rest breaks if you feel tired. Do not overexert. Stop activity if you have pain, shortness of breath or feel dizzy. Follow-up appointments: Make an appointment with your primary care physician within one week of discharge. A copy of this summary will be sent to them. Every time you see your primary care physician, or any other doctor, bring your medication list, a list of questions, and your recent weights. CONTACT YOUR PRIMARY CARE PROVIDER if you experience any of the following: Shortness of breath or difficulty breathing Swelling of your feet, ankles, hands or abdomen Feeling tired with normal activity or experiencing dizziness or fainting Difficulty following your treatment plan, or difficulty taking medications CALL 911 OR GO TO THE EMERGENCY DEPARTMENT if you experience any of the following: Severe abdominal pain or nausea/vomiting Severe chest pain, or chest pain that radiates (moves) to your jaw or arm Sudden, severe shortness of breath or difficulty breathing Recurrence of vomiting blood or dark or bloody stools Thank you for allowing us to participate in your care. Pending Studies at Discharge: No Stand-Alone Forms: My [facility] Medications and DC Order Prescriptions: Continued fluticasone propionate [Flonase Allergy Relief] 50 mcg/actuation [place],Suspension 2 spray INTRANASAL DAILY PRN (Reason: Allergy Symptoms) pantoprazole [Protonix] 40 mg Tablet,Delayed Release (Dr/Ec) 40 mg PO QAM metformin 1,000 mg Tablet 1,000 mg PO BID Xarelto 20 mg tablet 20 mg PO QPM loperamide [Imodium] 2 mg Capsule 2 mg PO DIRECTED PRN (Reason: Diarrhea) Rx Instructions: administer after each loose stool until symptoms controlled; do not exceed 8 mg per 24 hrs ondansetron HCl [Zofran] 8 mg Tablet 0 mg PO DIRECTED PRN (Reason: NAUSEA/VOMITING) Rx Instructions: PT UNSURE OF STRENGTH, UNABLE TO VERIFY. ferrous sulfate [iron] 325 mg (65 mg iron) Tablet 65 mg PO DAILY losartan 25 mg tablet 25 mg PO DAILY baclofen 5 mg tablet 5 mg PO TID PRN (Reason: Hiccups) Krames/Other Patient Handouts: Managing Type 2 Diabetes Admission Data Admit Date/Time: 11/16/22 18:31 Attending Provider: Kameron Keith Admit Provider: Lester Gutierrez Primary Care Provider: Gera Giles Other Providers: Lester Gutierrez ; Marc Amato Coding Level of Care Code 49006 IN/OBS DISCH 30 MIN/LESS Diagnoses Acute blood loss anemia D62 Acute upper gastrointestinal bleeding K92.2 Gastric outlet obstruction K31.1 Diabetes mellitus, type 2 E11.9 History of pulmonary embolism Z86.711 Colon cancer metastasized to liver C18.9; C78.7
== END 2022-11-20 18:25 | disposition home or self-care (01) | DRG 378 ==
LOC: ED 13:47 → SUATTDRO 18:31 → 2S 18:31

== ENCOUNTER 2022-11-24 10:34 | Inpatient (IN) ==
--- NOTE | 2022-11-24 11:22 | XRay Report ---
XR chest 1V portable HISTORY: 52 years-old Male Sepsis COMPARISON: 06/03/2021 TECHNIQUE: AP view of the chest FINDINGS: Cardiac mediastinal and hilar silhouettes are within normal limits. Right IJ Qliqxn-k-Pebi catheter i s unchanged. Mild right hemidiaphragmatic elevation. No pneumothorax, pleural effusion, airspace cons olidation or pulmonary edema. Bones appear grossly intact. IMPRESSION: No acute process. ACT 112: Negative or not required by law. The above report was generated using voice recognition software. It may contain grammatical, syntax o r spelling errors. Electronically signed by: Edvin Castellanos M.D. 11/24/2022 11:21 AM
[2022-11-24 12:14] LABS: Appearance Urine Clear (Clear); Bilirubin Urine Negative (Negative); Blood Urine Trace (Negative); Color Urine Yellow; Glucose Urine UA Negative (Negative); Ketones Urine 1+ (Negative); Leukocyte Esterase Urine Negative (Negative); Nitrite Urine Negative (Negative); Protein Urine 1+ (Negative); Specific Gravity Urine 1.005 (1.000-1.030); Urobilinogen Urine Negative (Negative); pH Urine 6.5 (4.5-7.5)
[2022-11-24] MEDS ORDERED: PIPERACILLIN/TAZOBACTAM 4.5 GM/120 ML BAG IV ONE (12:15)
[2022-11-24] MEDS ORDERED: SODIUM CHLORIDE 0.9% 1000ML 1,000 ML IV ONE (12:15)
[2022-11-24 12:29] LABS: Albumin Level 3.8 gm/dl (3.4-5.0); BUN Creatinine Ratio 3.6 (10-20); Bilirubin Direct 0.4 mg/dl (0-0.2); Bilirubin,Total 1.2 mg/dl (0.2-1.0); Calcium 8.5 mg/dl (8.6-10.3); Creatinine Clr Calc Pharmacy 116.4 ml/min; Est GFR (African American) 115.6 ml/min; Est GFR (Non-African American) 99.8 ml/min; Magnesium 1.1 mg/dl (1.7-2.4); Potassium 2.9 mmol/L (3.5-5.1); Total Protein 6.3 gm/dl (6.0-8.3)
[2022-11-24 12:30] LABS: INR 1.2 (0.9-1.1)
[2022-11-24 12:36] LABS: Epithelial Cell Urine 0-5 /lpf (0-5); Hematocrit (blood only) 27.2 % (42.0-52.0); Hemoglobin 8.6 g/dl (14.0-18.0); Mean Corpuscular Hemoglobin 28.3 pg (25.0-34.0); Mean Corpuscular Hgb Conc 31.6 g/dL (32.0-36.0); Mean Corpuscular Volume 89.5 fL (80.0-100.0); Mean Platelet Volume 12.7 fL (9.4-12.4); Platelet Count 88 K/uL (130-400); RDW Coefficient of Variation 15.8 % (11.5-14.5); Red Blood Count 3.04 M/uL (4.70-6.10)
[2022-11-24 12:37] LABS: Bacteria Urine Negative (Negative); RBC Urine 0-4 /hpf (0-4)
[2022-11-24] MEDS: SODIUM CHLORIDE 0.9% 1000ML 1,000 ML IV SCH ×2 (12:39→19:50)
[2022-11-24 12:40] LABS: ALC (manual) 0.63 K/uL (1.2-3.4); ANC (manual) 0.09 K/uL (1.4-6.5); Basophils # (manual) 0.02 K/uL (0-0.2); Basophils % (manual) 2 %; Dohle Bodies 1+; Eosinophils # (manual) 0.02 K/uL (0-0.50); Eosinophils % (manual) 2 %; Lymphocytes # (manual) 0.63 K/uL (1.2-3.4); Lymphocytes % (manual) 75 %; Monocytes # (manual) 0.08 K/uL (0.11-0.59); Monocytes % (manual) 9 %; Myelocytes # (manual) 0.01 K/uL (0-0); Myelocytes % (manual) 1 %; Neutrophils # (manual) 0.09 K/uL (1.40-6.50); Neutrophils % (manual) 11 %; Polychromasia 1+; Tear Drop Cells 1+; White Blood Count 0.84 K/ul (4.8-10.8)
--- NOTE | 2022-11-24 12:40 | Emergency Department Note ---
Impression & Plan Abnormal CT of the abdomen, Colon cancer metastasized to liver, Thrombocytopenia, Neutropenia, Hypomagnesemia, Hypokalemia ED Provider Note NAME: LINNEA PRINGLE AGE: 52 SEX: M ARRIVES VIA: Walk-In INFORMANT: Patient ED PROVIDER(S): Jesse Edouard MD CHIEF COMPLAINT: Neutropenia, abnormal CT, referred. PLAN: Disposition: Home MEDICAL DECISION MAKING: The patient is a pleasant 52-year-old gentleman with a past medical history of metastatic colon cancer given undergoing chemotherapy with last treatment prior to his hospitalization last week who presents to the emergency department via walk-in, accompanied by his , referred by his primary care and oncology office for further evaluation of symptoms of generalized weakness/malaise and poor oral intake in the setting of recent hospitalization where he had CT imaging that demonstrated numerous fluid-filled liver lesions suspected to be related to metastatic disease. Patient was seen for hospitalization follow-up and findings were reviewed and discussed with the patient's oncologist. Given findings occur in the setting of neutropenia there was concern infection could not be complete excluded and so recommended return to the emergency department for hospitalization for further evaluation including MRI. Patient denies any fevers since his discharge. He reports his appetite has been poor as his hospitalization was related to upper GI bleeding and gastric outlet obstruction which was subsequently resolved with pyloric dilatation on endoscopy and began to take in liquids yesterday. On arrival the patient is no acute distress, afebrile with stable vital signs. He appears clinically dry. Abdomen is nontender. EKG without overt acute ischemia. CXR negative for acute cardiopulmonary proc ess. WBC 0.8K with neutropenia of 0.09K. H/H similar to prior. Platelets 88K similar to prior. INR 1.2 improved from prior. Potassium 2.9 and magnesium 1.1 with repletion initiated. Chemistry without metabolic acidosis. Total bilirubin direct bilirubin 1.2 and 0.4, respectively and are nonspecific. AST and ALT have normalized since admission. Alkaline phosphatase however is increased to 741. High-sensitivity troponin 6.0, within normal limits. Urinalysis without convincing evidence of infection. CT abdomen pelvis demonstrates interval resolution of previously seen gastroesophageal distention without evidence of bowel obstruction or bowel wall thickening today. Scattered colonic air-fluid levels are noted and may represent diarrheal illness are nonspecific. Hypodense liver lesions are stable compared to 11/16 study. Splenomegaly is unchanged. Blood cultures were obtained and the patient was treated with empiric Zosyn. Case was discussed with Dr. Gutierrez, [facility] hospitalist, who will evaluate the patient for admission. Further management per admitting team. Triage Nursing notes reviewed and agree them. Prior/outside medical records reviewed Vital Signs: reviewed Differential diagnosis: Infection, dehydration, metabolic abnormality, hypo/hyperglycemia, electrolyte disturbance, anemia, hypoxia, cardiac sources, intracerebral event, toxicologic, neurologic, as well as other pathologies. ER treatment provided: See below. Diagnostics interpreted by me: ECG: Normal sinus rhythm, 70 bpm, no ectopy, LVH, no overt ST elevation or depression, QTc 470, QRS 90 Cardiac Monitoring: An order for continuous cardiac monitoring was placed and demonstrated Normal sinus rhythm, 70 bpm, no ectopy. Laboratory studies: See below Imaging studies: See below Consultation(s): Case was discussed with Dr. Gutierrez, [facility] hospitalist, who will evaluate the patient for admission. HPI: The patient is a pleasant 52-year-old gentleman with a past medical history of metastatic colon cancer given undergoing chemotherapy with last treatment prior to his hospitalization last week who presents to the emergency department via walk-in, accompanied by his , referred by his primary care and oncology office for further evaluation of symptoms of generalized weakness/malaise and poor oral intake in the setting of recent hospitalization where he had CT imaging that demonstrated numerous fluid-filled liver lesions suspected to be related to metastatic disease. Patient was seen for hospitalization follow-up and findings were reviewed and discussed with the patient's oncologist. Given findings occur in the setting of neutropenia there was concern infection could not be complete excluded and so recommended return to the emergency department for hospitalization for further evaluation including MRI. Patient denies any fevers since his discharge. He reports his appetite has been poor as his hospitalization was related to upper GI bleeding and gastric outlet obstruction which was subsequently resolved with pyloric dilatation on endoscopy and began to take in liquids yesterday. ROS: See above HPI for pertinent positives & negatives. A total of 10 systems reviewed and were otherwise negative. VITALS:See Below PHYSICAL EXAMINATION: GENERAL: Awake, alert, fatigued but well-appearing, in no distress HENT: Normocephalic, atraumatic. Oropharynx with dry mucous membranes and otherwise unremarkable. EYES: Normal conjunctiva. Sclera non-icteric. NECK: Supple. No nuchal rigidity. FROM. No JVD. RESPIRATORY: Clear to auscultation. CARDIAC: Regular rate, normal rhythm. Extremities warm and well perfused. Pulses equal. ABDOMEN: Soft, non-distended. No tenderness to palpation. No rebound or guarding. No masses. RECTAL: Deferred. MUSCULOSKELETAL: Chest examination reveals no tenderness. The back is symmetrical on inspection without obvious abnormality. There is no CVA tenderness to palpation. No joint edema. LOWER EXTREMITIES: Calves are equal size bilaterally and non-tender. No edema. No discoloration. NEURO: Normal sensorium. No sensory or motor deficits noted. SKIN: No rash or jaundice noted. ED COURSE: Critical Care: I have personally spent greater than 35 minutes of critical care time in the direct management of this patient. This includes bedside care, interpretation of diagnostic studies, and testing, discussion with consultants, patient, and family members, and other required patient management activities. This 35 minutes is in excess of all separately billable procedures. Jesse Edouard MD Past Med/Surg History Medical History (Updated 11/25/22 @ 00:48 by Jesse Edouard MD) Anemia Colon cancer 02/2018--sx, chemo--metastasized to liver and lymph nodes Diabetes mellitus, type 2 GERD (gastroesophageal reflux disease) History of pulmonary embolism Noted on 09/2018 CT scan of chest Hypertension BORDERLINE Surgical History History of colon resection 01/2019 @ [facility] [place] 6-8 inches removed with portion of liver removed (40%) History of colonoscopy History of colostomy 2017 @ [facility] [place], per pt no colon resection only colostomy History of colostomy reversal 05/2019 @ [facility] [place] during liver sx History of esophagogastroduodenoscopy (EGD) History of surgery of liver 05/2019 @ [facility] [place] another 30% removed at that time History of vascular access device Aport on right side History of wisdom tooth extraction Hx of vasectomy Family History Unknown Family history of diabetes mellitus Aunt Family hx of colon cancer Other No family history of adverse response to anesthesia Social History Smoking Status: Never smoker Second Hand Exposure: Yes (parents/family smoked); Do You Dip or Chew Tobacco: No; Hx Alcohol Use: Yes Alcohol type: other Hx Substance Use: No Preferred Language: Italian Communication Ability: Effective Community Program Assistant Required: No Beliefs That Will Affect Care: None marital status: Current Living Situation: Spouse Current Living Situation Comment: Lives with and 2 daughters Other Information That Helps Us Care for You: No Feels Safe at Home: Yes Safety Concerns: Feels Safe At This Time Assistive Devices: Glasses Allergies Allergies Allergy/AdvReac Type Severity Reaction Status Date / Time cetuximab [From Erbitux] Allergy Severe Bronchial Verified 11/23/22 11:22 Spasms Home Meds Home Medications Medication Instructions Recorded Confirmed fluticasone propionate 50 2 spray intranasal DAILY PRN 04/25/18 11/24/22 mcg/actuation nasal Allergy Symptoms spray,suspension (Flonase Allergy Relief) pantoprazole 40 mg tablet,delayed 40 mg PO BID 07/22/18 11/24/22 release (Protonix) rivaroxaban 20 mg tablet (Xarelto) 20 mg PO QPM 03/19/19 11/24/22 ferrous sulfate 325 mg (65 mg 65 mg PO DAILY 11/16/22 11/24/22 iron) tablet (iron) loperamide 2 mg capsule 2 mg PO DIRECTED PRN Diarrhea 11/16/22 11/24/22 losartan 25 mg tablet 25 mg PO DAILY 11/16/22 11/24/22 ondansetron HCl 8 mg tablet 0 mg PO DIRECTED PRN 11/16/22 11/24/22 NAUSEA/VOMITING clindamycin phosphate 1 % topical 1 applic topical DIRECTED PRN 11/24/22 11/24/22 gel Rash Previous Rx's Medication Instructions Recorded sucralfate 1 gram tablet (Carafate) 1 g PO Q6H 4 weeks #112 tabs 11/22/22 Results & Data (ED) Vital Signs Vital Signs - 24 hr 11/24/22 10:38 11/24/22 11:47 11/24/22 11:47 Temperature 36.7 C Temperature Source Oral Pulse Rate 89 Pulse Rate from SpO2 Sensor Respiratory Rate 16 16 Respiratory Depth Normal Blood Pressure 109/74 Blood Pressure Mean 85 Blood Pressure Position Sitting Pulse Oximetry 100 Oxygen Delivery Method Room Air Room Air Room Air Sepsis Recent Fever Within 48 Hours No Sepsis New/Unexplained Change in Mental Status No Sepsis Action Taken by Nursing No Action Required 11/24/22 12:00 11/24/22 11:57 11/24/22 12:00 Temperature Temperature Source Pulse Rate 81 81 Pulse Rate from SpO2 Sensor 81 Respiratory Rate 17 Respiratory Depth Blood Pressure 107/77 Blood Pressure Mean 84 Blood Pressure Position Pulse Oximetry 100 Oxygen Delivery Method Sepsis Recent Fever Within 48 Hours Sepsis New/Unexplained Change in Mental Status Sepsis Action Taken by Nursing 11/24/22 12:00 11/24/22 12:30 11/24/22 12:30 Temperature Temperature Source Pulse Rate 80 80 Pulse Rate from SpO2 Sensor 81 80 Respiratory Rate 16 23 Respiratory Depth Blood Pressure 110/76 Blood Pressure Mean 84 Blood Pressure Position Pulse Oximetry 98 98 Oxygen Delivery Method Sepsis Recent Fever Within 48 Hours Sepsis New/Unexplained Change in Mental Status Sepsis Action Taken by Nursing 11/24/22 13:00 11/24/22 13:30 11/24/22 14:01 Temperature Temperature Source Pulse Rate 74 76 Pulse Rate from SpO2 Sensor 75 76 Respiratory Rate 12 18 Respiratory Depth Blood Pressure 102/61 Blood Pressure Mean 69 Blood Pressure Position Pulse Oximetry 100 100 Oxygen Delivery Method Room Air Sepsis Recent Fever Within 48 Hours Sepsis New/Unexplained Change in Mental Status Sepsis Action Taken by Nursing 11/24/22 14:01 11/24/22 14:01 11/24/22 14:30 Temperature Temperature Source Pulse Rate Pulse Rate from SpO2 Sensor 72 Respiratory Rate Respiratory Depth Blood Pressure 102/61 100/69 Blood Pressure Mean 69 87 Blood Pressure Position Pulse Oximetry 100 Oxygen Delivery Method Sepsis Recent Fever Within 48 Hours Sepsis New/Unexplained Change in Mental Status Sepsis Action Taken by Nursing 11/24/22 14:30 Temperature Temperature Source Pulse Rate 72 Pulse Rate from SpO2 Sensor 72 Respiratory Rate 17 Respiratory Depth Blood Pressure Blood Pressure Mean Blood Pressure Position Pulse Oximetry 100 Oxygen Delivery Method Sepsis Recent Fever Within 48 Hours Sepsis New/Unexplained Change in Mental Status Sepsis Action Taken by Nursing Laboratory Data Attestation: I reviewed the patient's lab results. 11/24/22 11:41 11/24/22 11:41 Lab Results 11/24/22 11/24/22 11/24/22 Range/Units 11:41 11:41 11:41 WBC 0.84 L* (4.8-10.8) K/ul RBC 3.04 L (4.70-6.10) M/uL Hgb 8.6 L (14.0-18.0) g/dl Hct 27.2 L (42.0-52.0) % MCV 89.5 (80.0-100.0) fL MCH 28.3 (25.0-34.0) pg MCHC 31.6 L (32.0-36.0) g/dL RDW Std Deviation 51.0 H (36.4-46.3) fL RDW Coeff of Bulmaro 15.8 H (11.5-14.5) % Plt Count 88 L (130-400) K/uL MPV 12.7 H (9.4-12.4) fL Neutrophils % (Manual) 11 % Lymphocytes % (Manual) 75 % Monocytes % (Manual) 9 % Eosinophils % (Manual) 2 % Basophils % (Manual) 2 % Myelocytes % (Man) 1 % Neutrophils # (Manual) 0.09 L (1.40-6.50) K/uL Total Absolute Neuts 0.09 L* (1.4-6.5) K/uL Lymphocytes # (Manual) 0.63 L (1.2-3.4) K/uL Total Abs Lymphocytes 0.63 L (1.2-3.4) K/uL Monocytes # (Manual) 0.08 L (0.11-0.59) K/uL Eosinophils # (Manual) 0.02 (0-0.50) K/uL Basophils # (Manual) 0.02 (0-0.2) K/uL Myelocytes # (Manual) 0.01 H (0-0) K/uL Dohle Bodies 1+ Polychromasia 1+ Tear Drop Cells 1+ PT 13.0 H (9.0-12.0) Seconds INR 1.2 H (0.9-1.1) Sodium 133 L (136-145) mmol/L Potassium 2.9 L (3.5-5.1) mmol/L Chloride 103 (98-107) mmol/L Carbon Dioxide 21 (21-32) mmol/L Anion Gap 9 (3-11) BUN 3 L (6-23) mg/dl Creatinine 0.83 (0.6-1.4) mg/dl Est Cr Clr Drug Dosing 116.4 ml/min Est GFR ( Amer) 115.6 ml/min Est GFR (Non-Af Amer) 99.8 ml/min BUN/Creatinine Ratio 3.6 L (10-20) Glucose 153 H (70-99(Fasting)) mg/dl Lactate (0.4-2.0) mmol/L Calcium 8.5 L (8.6-10.3) mg/dl Magnesium 1.1 L (1.7-2.4) mg/dl Total Bilirubin 1.2 H (0.2-1.0) mg/dl Direct Bilirubin 0.4 H (0-0.2) mg/dl AST 13 (13-39) U/L ALT 22 (7-52) U/L Alkaline Phosphatase 741 H (34-104) U/L Troponin I High Sens 6.0 (0-20) pg/ml Total Protein 6.3 (6.0-8.3) gm/dl Albumin 3.8 (3.4-5.0) gm/dl Procalcitonin (0-0.5) ng/ml Urine Color Urine Appearance (Clear) Urine pH (4.5-7.5) Ur Specific [place] (1.000-1.030) Urine Protein (Negative) Urine Glucose (UA) (Negative) Urine Ketones (Negative) Urine Blood (Negative) Urine Nitrite (Negative) Urine Bilirubin (Negative) Urine Urobilinogen (Negative) Ur Leukocyte Esterase (Negative) Urine RBC (0-4) /hpf Urine WBC (0-5) /hpf Ur Epithelial Cells (0-5) /lpf Urine Bacteria (Negative) 11/24/22 11/24/22 11/24/22 Range/Units 11:41 11:41 11:58 WBC (4.8-10.8) K/ul RBC (4.70-6.10) M/uL Hgb (14.0-18.0) g/dl Hct (42.0-52.0) % MCV (80.0-100.0) fL MCH (25.0-34.0) pg MCHC (32.0-36.0) g/dL RDW Std Deviation (36.4-46.3) fL RDW Coeff of Bulmaro (11.5-14.5) % Plt Count (130-400) K/uL MPV (9.4-12.4) fL Neutrophils % (Manual) % Lymphocytes % (Manual) % Monocytes % (Manual) % Eosinophils % (Manual) % Basophils % (Manual) % Myelocytes % (Man) % Neutrophils # (Manual) (1.40-6.50) K/uL Total Absolute Neuts (1.4-6.5) K/uL Lymphocytes # (Manual) (1.2-3.4) K/uL Total Abs Lymphocytes (1.2-3.4) K/uL Monocytes # (Manual) (0.11-0.59) K/uL Eosinophils # (Manual) (0-0.50) K/uL Basophils # (Manual) (0-0.2) K/uL Myelocytes # (Manual) (0-0) K/uL Dohle Bodies Polychromasia Tear Drop Cells PT (9.0-12.0) Seconds INR (0.9-1.1) Sodium (136-145) mmol/L Potassium (3.5-5.1) mmol/L Chloride (98-107) mmol/L Carbon Dioxide (21-32) mmol/L Anion Gap (3-11) BUN (6-23) mg/dl Creatinine (0.6-1.4) mg/dl Est Cr Clr Drug Dosing ml/min Est GFR ( Amer) ml/min Est GFR (Non-Af Amer) ml/min BUN/Creatinine Ratio (10-20) Glucose (70-99(Fasting)) mg/dl Lactate 1.3 (0.4-2.0) mmol/L Calcium (8.6-10.3) mg/dl Magnesium (1.7-2.4) mg/dl Total Bilirubin (0.2-1.0) mg/dl Direct Bilirubin (0-0.2) mg/dl AST (13-39) U/L ALT (7-52) U/L Alkaline Phosphatase (34-104) U/L Troponin I High Sens (0-20) pg/ml Total Protein (6.0-8.3) gm/dl Albumin (3.4-5.0) gm/dl Procalcitonin 0.15 (0-0.5) ng/ml Urine Color Yellow Urine Appearance Clear (Clear) Urine pH 6.5 (4.5-7.5) Ur Specific [place] 1.005 (1.000-1.030) Urine Protein 1+ H (Negative) Urine Glucose (UA) Negative (Negative) Urine Ketones 1+ H (Negative) Urine Blood Trace H (Negative) Urine Nitrite Negative (Negative) Urine Bilirubin Negative (Negative) Urine Urobilinogen Negative (Negative) Ur Leukocyte Esterase Negative (Negative) Urine RBC 0-4 (0-4) /hpf Urine WBC 5-10 H (0-5) /hpf Ur Epithelial Cells 0-5 (0-5) /lpf Urine Bacteria Negative (Negative) Administered Medications Filgrastim (Filgrastim 480 Mcg/1.6 Ml Vial) 480 mcg SC DAILY DOMINGO Stop: 11/26/22 14:29 Last Admin: 11/24/22 15:50 Dose: 480 mcg Documented By: WHITNEY Sodium Chloride (Nss 1000ml) 1,000 mls @ 125 mls/hr IV .Q8H DOMINGO Stop: 12/24/22 12:14 Last Admin: 11/24/22 19:50 Dose: 125 mls/hr Documented By: Infusion: 11/24/22 19:50 Dose: 125 mls/hr Documented By: Admin: 11/24/22 12:39 Dose: 125 mls/hr Documented By: WHITNEY Insulin Aspart (Insulin Aspart Per Unit Charge) 0 units SC ACHS DOMINGO Stop: 12/24/22 17:59 Last Admin: 11/24/22 21:24 Dose: 1 units Documented By: LACEY Co-signed By: [id number] Admin: 11/24/22 19:06 Dose: Not Given Documented By: SHERMAN Insulin Glargine (Lantus Per Unit Charge) 5 units SC BID DOMINGO Stop: 12/24/22 20:59 Last Admin: 11/24/22 21:24 Dose: 5 units Documented By: LACEY Co-signed By: [id number] Magnesium Chloride (Magnesium Chloride W/Calcium 64mg Delayed Rel Tab) 64 mg PO BID DOMINGO Stop: 12/24/22 17:25 Last Admin: 11/24/22 21:25 Dose: 64 mg Documented By: Admin: 11/24/22 19:51 Dose: 64 mg Documented By: SHERMAN Pantoprazole Sodium (Pantoprazole 40 Mg Tab) 40 mg PO BID DOMINGO Stop: 12/24/22 20:59 Last Admin: 11/24/22 21:25 Dose: 40 mg Documented By: LACEY Rivaroxaban (Rivaroxaban 20 Mg Tab) 20 mg PO QDD DOMINGO Stop: 12/24/22 17:59 Last Admin: 11/24/22 19:51 Dose: 20 mg Documented By: SHERMAN Sucralfate (Sucralfate 1 Gm Tab) 1 gm PO QID@1000,1400,1800,2200 DOMINGO Stop: 12/24/22 17:59 Last Admin: 11/24/22 21:25 Dose: 1 gm Documented By: Admin: 11/24/22 19:51 Dose: 1 gm Documented By: SHERMAN Discontinued Medications Piperacillin Sod/Tazobactam Sod (Zosyn) 4.5 gm in 120 mls @ 240 mls/hr IV NOW ONE Stop: 11/24/22 12:44 Last Infusion: 11/24/22 13:20 Dose: 0 mls/hr Documented By: Admin: 11/24/22 12:36 Dose: 240 mls/hr Documented By: WHITNEY Sodium Chloride (Nss 1000ml) 1,000 mls @ 999 mls/hr IV .Q1H1M ONE Stop: 11/24/22 13:15 Last Infusion: 11/24/22 14:54 Dose: 0 mls/hr Documented By: Admin: 11/24/22 12:39 Dose: 999 mls/hr Documented By: WHITNEY Magnesium Sulfate/Dextrose (Magnesium Sulfate / D5w) 1 gm in 100 mls @ 100 mls/hr IV Q1H DOMINGO Stop: 11/24/22 14:35 Last Infusion: 11/24/22 17:42 Dose: 0 mls/hr Documented By: Admin: 11/24/22 15:04 Dose: 100 mls/hr Documented By: Infusion: 11/24/22 14:19 Dose: 100 mls/hr Documented By: Admin: 11/24/22 13:19 Dose: 100 mls/hr Documented By: NU Potassium Chloride (K Stuart / Wtr) 10 meq in 100 mls @ 100 mls/hr IV Q1H DOMINGO Stop: 11/24/22 14:44 Last Infusion: 11/24/22 17:42 Dose: 0 mls/hr Documented By: Admin: 11/24/22 15:04 Dose: 100 mls/hr Documented By: Infusion: 11/24/22 14:19 Dose: 100 mls/hr Documented By: Admin: 11/24/22 13:19 Dose: 100 mls/hr Documented By: NU Magnesium Sulfate/Dextrose (Magnesium Sulfate / D5w) 1 gm in 100 mls @ 50 mls/hr IV Q2H DOMINGO Stop: 11/24/22 21:44 Last Infusion: 11/24/22 23:48 Dose: 0 mls/hr Documented By: Admin: 11/24/22 20:55 Dose: 50 mls/hr Documented By: Infusion: 11/24/22 20:55 Dose: 50 mls/hr Documented By: Admin: 11/24/22 19:50 Dose: 50 mls/hr Documented By: SHERMAN Potassium Chloride (K Stuart / Wtr) 10 meq in 100 mls @ 100 mls/hr IV Q1H DOMINGO Stop: 11/24/22 20:25 Last Infusion: 11/24/22 23:28 Dose: 0 mls/hr Documented By: Admin: 11/24/22 22:10 Dose: 100 mls/hr Documented By: Infusion: 11/24/22 22:10 Dose: 0 mls/hr Documented By: Admin: 11/24/22 20:54 Dose: 100 mls/hr Documented By: Infusion: 11/24/22 20:50 Dose: 100 mls/hr Documented By: Admin: 11/24/22 19:50 Dose: 100 mls/hr Documented By: SHERMAN Ioversol (Optiray 320 100ml) 94 ml IV ONCE ONE Stop: 11/24/22 13:45 Last Admin: 11/24/22 13:44 Dose: 94 ml Documented By: DANIE Imaging Data Radiologist's Impression: Abdomen/Pelvis CT 11/24/22 11:[address] WITH IV CONTRAST CT DOSE: 2375.17 mGy.cm HISTORY: Follow-up study in a patient with hepatic lesions metastatic cancer, neutropenia, eval liver lesions TECHNIQUE: Multiaxial CT images of the abdomen and pelvis were performed following the IV administration of 94 cc of Optiray, A dose lowering technique was utilized adhering to the principles of ALARA. COMPARISON STUDY: CT abdomen and pelvis 11/16/2022, MR abdomen 04/11/2021 and 11/08/2020 FINDINGS: Partially imaged [id number] catheter is in the superior cavoatrial junction. Clear lung bases. No free air. Spleen is mildly enlarged, 15.7 cm. Unremarkable pancreas and adrenal glands. The gallbladder appears surgically absent. Numerous prior hepatic resections. 5.1 x 4.6 cm ovoid hypodense lesion within the central liver just superior to the right main portal vein on image 91 previously was measured at 6.5 x 4.1 cm. This is posterior to a 4.6 cm lesion which is unchanged. Numerous additional subcentimeter hypodense foci of the liver. Patent portal vein. Hepatic steatosis. Left nephrolithiasis again noted with calculi in the inferior pole measuring up to 7 mm. No ureteral calculi or hydronephrosis. Mild prostatomegaly. Atherosclerosis of the aorta. No lymphadenopathy. Mild distal esophageal wall thickening again noted. Resolution of the previously described gastric distention and fluid distention of the esophagus. Prior sigmoid colon resection with colocolic anastomosis. Scattered colonic air-fluid levels with mild gaseous distention of the large bowel. No CT evidence of acute appendicitis. Several ventral abdominal wall hernias are noted including a 5 cm hernia containing nonobstructed loops of small bowel. Unremarkable soft tissues. No acute fracture. IMPRESSION: 1. Resolution of the previously described gastroesophageal distention described on the study from 11/16/2022. There is no bowel obstruction or bowel wall thickening on today's study. 2. Scattered colonic air-fluid levels may represent a nonspecific diarrheal illness. 3. Prior hepatic resections with numerous hypodense lesions within the liver again noted, stable from 11/16/2022 which may represent treated disease. 4. Unchanged splenomegaly. 5. Left nephrolithiasis. 6. Additional findings as above. ACT 112: Negative or not required by law. The above report was generated using voice recognition software. It may contain grammatical, syntax or spelling errors. Electronically signed by: Edvin Castellanos M.D. 11/24/2022 2:25 PM Discharge Plan Visit Data Chief Complaint: Abnormal Labs/Diagnostic Testing Stated Complaint: REF BY PCP; ABNORMAL LABS, POTENTIAL INFECTION ED Provider: Jesse Edouard Discharge Problem: Abnormal CT of the abdomen, Colon cancer metastasized to liver, Thrombocytopenia, Neutropenia, Hypomagnesemia, Hypokalemia Patient Disposition: Admitted As Inpatient Discharge Instructions Interventions: ED Discharge Assessment Last Done: 11/24/22 17:32 Neutropenia Qualifiers: Neutropenia type: secondary to cancer chemotherapy Qualified Code(s): D70.1 - Agranulocytosis secondary to cancer chemotherapy
--- NOTE | 2022-11-24 13:01 | Electrocardiogram Report ---
Test Reason : Blood Pressure : / mmHG Vent. Rate : 078 BPM Atrial Rate : 078 BPM P-R Int : 146 ms QRS Dur : 090 ms QT Int : 366 ms P-R-T Axes : 027 020 068 degrees QTc Int : 417 ms Normal sinus rhythm Nonspecific T wave abnormality Poor R wave progression, consider anterior MA vs. lead placement vs. LVH Abnormal ECG When compared with ECG of 16-NOV-2022 17:29, Borderline criteria for Inferior infarct are no longer Present Nonspecific T wave abnormality now evident in Inferior leads Confirmed by Nam Mcclelland ([id number]) on 11/24/2022 1:01:14 PM Referred By: Confirmed By:Nam Mcclelland
[2022-11-24] MEDS: MAGNESIUM SULFATE / D5W 1 GM/100 ML BAG IV SCH ×4 (13:19→20:55)
[2022-11-24] MEDS: POTASSIUM CHLORIDE / WTR 10 MEQ/100 ML PLCT IV SCH ×5 (13:19→22:10)
[2022-11-24] MEDS ORDERED: OPTIRAY 320 100ml IV ONE (13:44)
--- NOTE | 2022-11-24 14:22 | History & Physical Report ---
Date of Service November 24, 2022 Assessment & Plan (1) Liver function abnormality: Plan: Liver abnormalities, history of metastatic colon adenocarcinoma with liver mets CTA/P with contrast 11/16/2022:: There is postsurgical change from several hepatic resections. A 6.5 x 4 cm ovoid low-attenuation focus in the right lobe image 101 at a site of previous surgery likely represents treated disease. The liver demonstrates diffusely diminished attenuation indicating steatosis. There is no intrahepatic biliary ductal dilatation. The hepatic veins and portal veins are patent. Numerous subcentimeter low-attenuation foci are seen in the posterior right lobe of the liver, with quality audit representative foci seen on images #48, #70, #73, and #80 these are pathologically indeterminate but 4 not seen previously. Pathologically indeterminate? Malignant lesions versus cystic almanza ge. On discussion with outside PCP? Potential for liver abscesses in the setting of neutropenia. Repeat CTA/P on admission: Redemonstrated lesions as above Discussed with interventional radiology and hematology oncology. On review of prior imaging lesions have been present in some part for at least many weeks/months although they are slightly larger. Suspect if these were truly hepatic abscesses patient would likely be floridly septic, leukocytosis is not reliable measure given his antineoplastic neutropenia however he has not had fever/chills/sweats, Pro-Donald remains normal, and while he feels weak with electrolyte abnormalities as alternative explanations for his poor p.o. intake Blood cultures drawn, pending Patient afebrile If patient were to require IR drainage or evaluation this would need to be done at tertiary care. Location of the lesion and high bleeding risk with adjacent vessels are not appropriate for IR sampling at this institution. Do not feel he needs this at this time, and lesions may represent treated metastatic change from his primary malignancy We will obtain MRI with contrast to further characterize. If patient develops infectious symptoms, bacteremia, or there is a high index of suspicion on MRI then will need transfer to [facility] for biopsy/drainage. Otherwise we will treat conservatively here, continue empiric antibiotics for 24 hours pending completion of work-up, and follow blood cultures. In the meantime will address electrolyte deficiencies Hypomagnesemia, hypokalemia With poor p.o. intake, recently discharged after stopping Mounjaro and with gastric outlet obstruction Patient feels his p.o. intake is improving, but gradually Clears, may advance as tolerated IV repletion ordered Neutropenia 2/2 chemo for descending colon adenocarcinoma Leukocytes 11/20 1.44, total neutrophils 0.75 Neulasta ordered by hematology oncology Trend daily History of PE/DVT 2019 after starting chemo. No recurrent thromboembolism while on Xarelto. Compliant with Xarelto, transiently held for GI bleed at prior presentation then restarted. Continue Xarelto Type II DM Mounjaro discontinued due to contribution to gastroparesis Goal BSG [id number] Basal bolus SSI while inpatient Hypertension Continue losartan Recent upper GI bleed No recurrence Admitting hemoglobin 8.6, fluctuating in eights since discharge DVT prophylaxis: On Xarelto Diet: Clears, advance as tolerated Status: Full code Disposition: Medical telemetry due to hypokalemia and hypomagnesemia (2) Neutropenia: (3) Colon cancer: (4) GERD (gastroesophageal reflux disease): (5) Pancytopenia due to antineoplastic chemotherapy: (6) Diabetes mellitus: History of Present Illness Primary Care Provider: Gera Giles MD Naun is a 52-year-old male with a past medical history of type II DM, PE, colon cancer with liver metastasis, history of CLABSI, neutropenia, and GERD who was referred to the ER for evaluation of potential liver abscess in the setting of antineoplastic neutropenia. Patient was admitted 11/16/2022 - 11/20/2022 for vomiting and concern for GI bleed while on chemo. At that time EGD showed severe ulcerative esophagitis and gastric outlet obstruction with deformity of the pylorus, he was continued on Carafate 50 mL 4 times daily and Protonix twice daily with outpatient GI follow- up. Was tolerating a diet at discharge and gastric outlet obstruction thought to be worsened by GLP1/Mounjaro which was discontinued. He does have a history of partial colon resection at [facility] and is on chemo for recurrent liver disease. Elevated troponin: Previously 120, downtrended to 68. No anginal symptoms. Was thought to be due to demand. Per Pt: Dehydrated from diarrhea after discharge, and had a slightly poor appetite. Weak/tired last wed, called PCP. Saw Dr. Chen in the office --> blood work showed neutropenia and was recommended to have followup as inpatient for liver cysts which could be potential abscess. No fevers chills sweats No RUQ pain Diarrhea last day or so improved with immodium. Prior to that was 6-8 times per day. Overall feels clinically well, just tired and washed out from not eating much. Medical History: Reviewed Medications: Reviewed Surgical History: Reviewed Family history: Reviewed Allergies: Reviewed Social History: No tobacco/alcohol use Code Status: Full code, discussed with patient at bedside Allergies Allergy/AdvReac Type Severity Reaction Status Date / Time cetuximab [From Erbitux] Allergy Severe Bronchial Verified 11/23/22 11:22 Spasms Home Medications Medication Instructions Recorded Confirmed Type fluticasone propionate 50 2 spray intranasal DAILY PRN 04/25/18 11/24/22 History mcg/actuation nasal Allergy Symptoms spray,suspension (Flonase Allergy Relief) pantoprazole 40 mg tablet,delayed 40 mg PO BID 07/22/18 11/24/22 History release (Protonix) rivaroxaban 20 mg tablet (Xarelto) 20 mg PO QPM 03/19/19 11/24/22 History ferrous sulfate 325 mg (65 mg 65 mg PO DAILY 11/16/22 11/24/22 History iron) tablet (iron) loperamide 2 mg capsule 2 mg PO DIRECTED PRN Diarrhea 11/16/22 11/24/22 Histo ry losartan 25 mg tablet 25 mg PO DAILY 11/16/22 11/24/22 History ondansetron HCl 8 mg tablet 0 mg PO DIRECTED PRN 11/16/22 11/24/22 History NAUSEA/VOMITING sucralfate 1 gram tablet (Carafate) 1 g PO Q6H 4 weeks #112 tabs 11/22/22 11/24/22 Rx clindamycin phosphate 1 % topical 1 applic topical DIRECTED PRN 11/24/22 11/24/22 History gel Rash Past Med/Surg History Medical History (Updated 11/24/22 @ 14:51 by Lester Gutierrez MD) Anemia Colon cancer 02/2018--sx, chemo--metastasized to liver and lymph nodes Diabetes mellitus, type 2 GERD (gastroesophageal reflux disease) History of pulmonary embolism Noted on 09/2018 CT scan of chest Hypertension BORDERLINE Surgical History History of colon resection 01/2019 @ [facility] 6-8 inches removed with portion of liver removed (40%) History of colonoscopy History of colostomy 2017 @ [facility], per pt no colon resection only colostomy History of colostomy reversal 05/2019 @ [facility] during liver sx History of esophagogastroduodenoscopy (EGD) History of surgery of liver 05/2019 @ [facility] another 30% removed at that time History of vascular access device Aport on right side History of wisdom tooth extraction Hx of vasectomy Family History Unknown Family history of diabetes mellitus Aunt Family hx of colon cancer Other No family history of adverse response to anesthesia Social History Smoking Status: Never smoker Second Hand Exposure: Yes (parents/family smoked); Do You Dip or Chew Tobacco: No; Hx Alcohol Use: No Hx Substance Use: No Preferred Language: Maldivian Communication Ability: Effective Ems Manager Required: No Beliefs That Will Affect Care: None marital status: Current Living Situation: Spouse Current Living Situation Comment: Lives with and 2 daughters Feels Safe at Home: Yes Assistive Devices: None Review of Systems Review of Systems: All systems reviewed & are unremarkable except as noted in HPI & below Physical Exam Physical Exam: General: A&Ox3. NAD. Cooperative. HEENT: Atraumatic, normocephalic. Pulm: -wheezes, -rales, -rhonchi. Symmetrical chest rise. No increased work of breathing. No respiratory distress. Cardiac: RRR, -mrg. Radial pulses intact and symmetrical. Abdominal: Nontender, nondistended, soft. BS present. Extremities: Warm, dry no edema Results & Data Results & Data Vital Signs (Past 12 Hours) Vital Signs Temp Pulse Resp BP Pulse Ox O2 Del Method 11/24/22 12:00 81 11/24/22 11:47 Room Air 11/24/22 11:47 16 Room Air 11/24/22 10:38 36.7 C 89 16 109/74 100 Room Air PG Care Time/CCT Total # of Minutes Spent Total Time Spent with Patient: Total time spent is greater than 50% in coordination of care (as documented) at patient's floor/unit and/or counseling patient: Coding Level of Care Code 00899 INT INP/OBS CARE 3/75MIN Diagnoses Liver function abnormality R94.5 Neutropenia D70.9 Colon cancer C18.9 GERD (gastroesophageal reflux disease) K21.9 Pancytopenia due to antineoplastic chemotherapy D61.810; T45.1X5A Diabetes mellitus E11.9 Diabetes mellitus type: type 2 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
--- NOTE | 2022-11-24 14:26 | CT Scan Report ---
ABDOMEN AND PELVIS CT WITH IV CONTRAST CT DOSE: 2375.17 mGy.cm HISTORY: Follow-up study in a patient with hepatic lesions metastatic cancer, neutropenia, eval live r lesions TECHNIQUE: Multiaxial CT images of the abdomen and pelvis were performed following the IV administrat ion of 94 cc of Optiray, A dose lowering technique was utilized adhering to the principles of ALARA. COMPARISON STUDY: CT abdomen and pelvis 11/16/2022, MR abdomen 04/11/2021 and 11/08/2020 FINDINGS: Partially imaged [id number] catheter is in the superior cavoatrial junction. Clear lung bases. No free air. Spleen is mildly enlarged, 15.7 cm. Unremarkable pancreas and adrenal glands. The gallbladder appears surgically absent. Numerous prior hepatic resections. 5.1 x 4.6 cm ovoid hypoden se lesion within the central liver just superior to the right main portal vein on image 91 previously was measured at 6.5 x 4.1 cm. This is posterior to a 4.6 cm lesion which is unchanged. Numerous michelle tional subcentimeter hypodense foci of the liver. Patent portal vein. Hepatic steatosis. Left nephrolithiasis again noted with calculi in the inferior pole measuring up to 7 mm. No ureteral calculi or hydronephrosis. Mild prostatomegaly. Atherosclerosis of the aorta. No lymphadenopathy. Mild distal esophageal wall thickening again noted. Resolution of the previously described gastric di stention and fluid distention of the esophagus. Prior sigmoid colon resection with colocolic anastomo sis. Scattered colonic air-fluid levels with mild gaseous distention of the large bowel. No CT eviden ce of acute appendicitis. Several ventral abdominal wall hernias are noted including a 5 cm hernia co ntaining nonobstructed loops of small bowel. Unremarkable soft tissues. No acute fracture. IMPRESSION: 1. Resolution of the previously described gastroesophageal distention described on the study from 11/07. There is no bowel obstruction or bowel wall thickening on today's study. 2. Scattered colonic air-fluid levels may represent a nonspecific diarrheal illness. 3. Prior hepatic resections with numerous hypodense lesions within the liver again noted, stable from 11/16/2022 which may represent treated disease. 4. Unchanged splenomegaly. 5. Left nephrolithiasis. 6. Additional findings as above. ACT 112: Negative or not required by law. The above report was generated using voice recognition software. It may contain grammatical, syntax o r spelling errors. Electronically signed by: Edvin Castellanos M.D. 11/24/2022 2:25 PM
[2022-11-24] MEDS: FILGRASTIM 480 MCG/1.6 ML VIAL SC SCH (15:50)
[2022-11-24] MEDS ORDERED: GLUCOSE 40% GEL 15 GM TUBE PO PRN (17:26)
[2022-11-24] MEDS ORDERED: CARBOHYDRATES FOR HYPOGLYCEMIA PO PRN (17:26)
[2022-11-24] MEDS ORDERED: PHARMACY GLYCEMIC MGMT CONSULT PRN (17:26)
[2022-11-24] MEDS ORDERED: GLUCAGON FOR INJ 1 MG VIAL SQ PRN (17:26)
[2022-11-24] MEDS ORDERED: GLUCOSE 10 TAB/TUBE PO PRN (17:26)
[2022-11-24] MEDS ORDERED: DEXTROSE 50% 50 ML SYRINGE IV PRN (17:26)
[2022-11-24] MEDS: INSULIN ASPART PER UNIT CHARGE SC SCH ×2 (19:06→21:24)
[2022-11-24] MEDS: MAGNESIUM CHLORIDE W/CALCIUM 64MG DELAYED REL TAB PO SCH ×2 (19:51→21:25)
[2022-11-24] MEDS: SUCRALFATE 1 GM TAB PO SCH ×2 (19:51→21:25)
[2022-11-24] MEDS: RIVAROXABAN 20 MG TAB PO SCH (19:51)
[2022-11-24 20:55] LABS: BUN Creatinine Ratio 3.6 (10-20); Calcium 8.6 mg/dl (8.6-10.3); Est GFR (Non-African American) 99.3 ml/min; Potassium 3.1 mmol/L (3.5-5.1)
[2022-11-24] MEDS ORDERED: LANTUS PER UNIT CHARGE SC SCH (21:00)
[2022-11-24] MEDS: PANTOprazole 40 MG TAB PO SCH (21:25)
[2022-11-25] MEDS: SODIUM CHLORIDE 0.9% 1000ML 1,000 ML IV SCH ×2 (04:21→14:30)
[2022-11-25] MEDS: INSULIN ASPART PER UNIT CHARGE SC SCH ×4 (08:36→21:45)
[2022-11-25 08:54] LABS: BUN Creatinine Ratio 2.7 (10-20); Creatinine Clr Calc Pharmacy 128.5 ml/min; Est GFR (African American) 120.5 ml/min; Potassium 3.1 mmol/L (3.5-5.1)
[2022-11-25] MEDS ORDERED: LOSARTAN POTASSIUM 25 MG TAB PO SCH (09:00)
[2022-11-25 09:06] LABS: Albumin Globulin Ratio 1.5 (0.9-2); Albumin Level 3.3 gm/dl (3.4-5.0); Globulin 2.2 gm/dl (2.5-4.0); Magnesium 1.7 mg/dl (1.7-2.4); Phosphorus 1.5 mg/dl (2.5-4.9); Total Protein 5.5 gm/dl (6.0-8.3)
[2022-11-25 09:33] LABS: Hematocrit (blood only) 25.2 % (42.0-52.0); Mean Corpuscular Hemoglobin 28.4 pg (25.0-34.0); Mean Corpuscular Hgb Conc 31.7 g/dL (32.0-36.0); Mean Corpuscular Volume 89.4 fL (80.0-100.0); Mean Platelet Volume 12.7 fL (9.4-12.4); Nucleated RBC # (auto) 0.04 K/uL (0-0.12); Nucleated RBC % (auto) 2.2 %; Platelet Count 95 K/uL (130-400); RDW Coefficient of Variation 16.1 % (11.5-14.5); RDW Standard Deviation 52.3 fL (36.4-46.3); Red Blood Count 2.82 M/uL (4.70-6.10); White Blood Count 1.83 K/ul (4.8-10.8)
[2022-11-25 09:36] LABS: ALC (manual) 0.79 K/uL (1.2-3.4); ANC (manual) 0.81 K/uL (1.4-6.5); Basophils # (manual) 0.02 K/uL (0-0.2); Basophils % (manual) 1 %; Blast Cells % (manual) 3 %; Dohle Bodies 1+; Eosinophils # (manual) 0.04 K/uL (0-0.50); Eosinophils % (manual) 2 %; Lymphocytes # (manual) 0.79 K/uL (1.2-3.4); Lymphocytes % (manual) 43 %; Monocytes # (manual) 0.13 K/uL (0.11-0.59); Monocytes % (manual) 7 %; Neutrophils # (manual) 0.81 K/uL (1.40-6.50); Neutrophils % (manual) 44 %; Polychromasia 1+; Tear Drop Cells 2+; Toxic Granulation 2+
[2022-11-25 09:37] LABS: Blast # (manual) 0.05 K/uL (0-0)
[2022-11-25] MEDS ORDERED: POTASSIUM CHLORIDE CRTAB 20 MEQ TABCR PO STA (09:44)
[2022-11-25] MEDS ORDERED: GADOXETATE DISODIUM IV ONE (10:22)
[2022-11-25] MEDS: MAGNESIUM CHLORIDE W/CALCIUM 64MG DELAYED REL TAB PO SCH ×2 (11:01→21:48)
[2022-11-25] MEDS: PANTOprazole 40 MG TAB PO SCH ×2 (11:01→21:48)
[2022-11-25] MEDS: FERROUS SULFATE 325 MG TAB PO SCH (11:01)
[2022-11-25] MEDS: SUCRALFATE 1 GM TAB PO SCH ×4 (11:01→21:49)
[2022-11-25] MEDS: POT PHOSPHATE MONOBASIC W/ SOD TAB PO SCH ×3 (11:19→21:48)
[2022-11-25] MEDS: MAGNESIUM SULFATE / D5W 1 GM/100 ML BAG IV SCH ×2 (11:20→12:53)
[2022-11-25] MEDS: FILGRASTIM 480 MCG/1.6 ML VIAL SC SCH (12:35)
--- NOTE | 2022-11-25 12:55 | Magnetic Resonance Report ---
MR abdomen wo/w con HISTORY: 52 years-old Male liver protocol MRI follow-up study in a patient with colon cancer and hermes er metastasis. COMPARISON: CT abdomen and pelvis 11/24/2022, 11/16/2022, MRI abdomen 04/11/2021 TECHNIQUE: Multiplanar multisequence MRI of the abdomen was obtained both with and without the use of IV contrast. FINDINGS: Protective Signal Operations Supervisor localizer images demonstrate no gross abdominal abnormality. No acute process of the imaged low er chest. Splenomegaly redemonstrated, 14.7 cm. The study is motion degraded. No hydronephrosis. Mild nonspecific bilateral perinephric stranding. There are a few subcentimeter T2 hyperintense foci with in the right kidney which are too small to characterize however favor probable cysts. There is no bow el obstruction or bowel wall thickening identified. Motion degraded exam. Cholecystectomy. MRCP image s demonstrate no biliary ductal dilation. Common bile duct measures 4 mm. No pancreatic duct dilation is seen. Numerous prior hepatic resections. Hepatic steatosis with parenchymal fibrosis and capsular retractio n again noted. These findings in conjunction with the motion degradation limits the study. Dominant l esion within the right hepatic lobe on image 15 series 5 is noted within the region of the previously described 1.7 x 0.8 cm lesion seen on the 04/11/2021 exam. This lesion demonstrates a thickened and ir regular T2 hyperintense wall which overall measures 5.3 x 3.5 x 4.1 cm. This lesion involves segments VII and VIII of the right hepatic lobe adjacent to the right portal vein. Increased signal on the di ffusion-weighted series and this lesion appears to correlate with T2 shine through. There is intrinsi c increased T1 signal within this lesion centrally. There are numerous tiny subcentimeter T2 hyperint ense foci throughout the liver which are new compared to the 04/11/2021 exam are too small to character ize. No definitive enhancing hepatic mass lesions identified. IMPRESSION: 1. Motion degraded exam. 2. Hepatic steatosis with parenchymal fibrosis, capsular retraction and prior hepatic resections. 3. Dominant 5.3 cm lesion within the right hepatic lobe adjacent to the right portal vein is noted wi thin the distribution of a previously described 1.7 cm lesion described on the 04/11/2021 exam which no w contains intralesional hemorrhage without identifiable enhancement suggestive of probable treated m etastasis. Attention on follow-up recommended 4. Numerous additional subcentimeter T2 hyperintense lesions of the liver are too small to characteri ze and are suboptimally evaluated secondary to the aforementioned motion artifact. These lesions may also represent areas of treated disease. Three-month follow-up recommended. 5. Splenomegaly. ACT 112: Negative or not required by law. The above report was generated using voice recognition software. It may contain grammatical, syntax o r spelling errors. Electronically signed by: Edvin Castellanos M.D. 11/25/2022 12:54 PM
[2022-11-25] MEDS: RIVAROXABAN 20 MG TAB PO SCH (17:25)
[2022-11-25] MEDS ORDERED: LOPERAMIDE HCL 2 MG CAP PO STA (18:02)
[2022-11-25] MEDS ORDERED: LOPERAMIDE HCL 2 MG CAP PO PRN (18:02)
--- NOTE | 2022-11-25 18:06 | Hospitalist Progress Note ---
Date of Service November 25, 2022 Assessment & Plan (1) Liver function abnormality: Plan: Liver abnormalities, history of metastatic colon adenocarcinoma with liver mets CTA/P with contrast 11/16/2022:: There is postsurgical change from several hepatic resections. A 6.5 x 4 cm ovoid low-attenuation focus in the right lobe image 101 at a site of previous surgery likely represents treated disease. The liver demonstrates diffusely diminished attenuation indicating steatosis. There is no intrahepatic biliary ductal dilatation. The hepatic veins and portal veins are patent. Numerous subcentimeter low-attenuation foci are seen in the posterior right lobe of the liver, with solar manufacturer's representative foci seen on images #48, #70, #73, and #80 these are pathologically indeterminate but 4 not seen previously. Pathologically indeterminate? Malignant lesions versus cystic almanza ge. On discussion with outside PCP? Potential for liver abscesses in the setting of neutropenia. Repeat CTA/P on admission: Redemonstrated lesions as above Discussed with interventional radiology and hematology oncology. On review of prior imaging lesions have been present in some part for at least many weeks/months although they are slightly larger. Suspect if these were truly hepatic abscesses patient would likely be floridly septic, leukocytosis is not reliable measure given his antineoplastic neutropenia however he has not had fever/chills/sweats, Pro-Donald remains normal, and while he feels weak with electrolyte abnormalities as alternative explanations Blood cultures drawn, pending-no growth to date Patient remains afebrile If patient were to require IR drainage or evaluation this would need to be done at tertiary care. Location of the lesion and high bleeding risk with adjacent vessels are not appropriate for IR sampling at this institution. Do not feel he needs this at this time, and lesions may represent treated metastatic change from his primary malignancy MRI liver performed and shows likely treated metastases-discussed with his oncologist who does not make any further recommendations regarding this issue at this time -If blood cultures remain no growth tomorrow and electrolyte abnormalities improving with replacement and increased p.o. intake and improvement in diarrhea, can discharge home (2) Electrolyte abnormality: Plan: Hypomagnesemia, hypokalemia, hypophosphatemia With poor p.o. intake, recently discharged after stopping Mounjaro and with gastric outlet obstruction -Tolerating regular diet today without any nausea or vomiting -Continues to have severe rmwgnero-bezh-lb as below -Replace with p.o. potassium, p.o. K-Phos, and IV magnesium (3) Colon cancer metastasized to liver: Plan: As noted above (4) Diarrhea: Plan: likely 2/2 chemo but check stool studies PCR BioFire, C. diff give imodium prn replace lytes (5) Neutropenia: Plan: Neutropenia 2/2 chemo for descending colon adenocarcinoma Neupogen given and now ANC up to 810, improving Never had a fever (6) Esophagitis: Plan: Recent upper GI bleed No recurrence Admitting hemoglobin 8.6, stable today, no further melena Continue Protonix and Carafate Needs repeat EGD as outpatient in 6 to 8 weeks H. 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 No recurrent thromboembolism while on Xarelto. Compliant with Xarelto, transiently held for GI bleed at prior presentation then restarted. Continue Xarelto (10) Hypertension: Plan: Blood pressures controlled Continue losartan Plan Disposition-improved p.o. intake, no evidence of infection, follow blood cultures, stop antibiotics. If electrolyte abnormalities improve, can discharge tomorrow Discussed care with at bedside Admission and Anticipated Discharge Date Admission Date: November 24, 2022 Subjective Pt feels well, having his usual diarrhea since being on chemo. has had 6 loose green stools today. No blood or black tarry stools. Ate three solid meals today, no nausea, no abd pain. Reviewed results of his MRI with him and . Tele with NSR, normal rates Physical Exam Constitutional: WD/WN, vitals as above Respiratory: normal respiratory effort, lungs clear to auscultation Cardiovascular: RRR, no murmur, no edema Gastrointestinal (Abdomen): normal bowel sounds, soft, nontender, no hepatosplenomegaly Skin: no rashes, warm and dry Psychiatric: A+Ox3, euthymic affect Results & Data Results & Data Vital Signs (Past 12 Hours) Vital Signs Temp Pulse Pulse Resp BP Pulse Ox O2 Del Method 11/25/22 16:00 80 11/25/22 14:51 36.8 C 76 18 104/71 98 Room Air 11/25/22 11:23 36.7 C 76 18 117/75 100 Room Air 11/25/22 08:31 65 11/25/22 07:32 36.5 C 66 18 97/57 L 96 Room Air Laboratory Results CBC, CMP, Phos, Magnesium , Blood cultures all reviewed Diagnostic Findings Abdomen MRI 11/25/22 00:00 MR abdomen wo/w con HISTORY: 52 years-old Male liver protocol MRI follow-up study in a patient with colon cancer and liver metastasis. COMPARISON: CT abdomen and pelvis 11/24/2022, 11/16/2022, MRI abdomen 04/11/2021 TECHNIQUE: Multiplanar multisequence MRI of the abdomen was obtained both with and without the use of IV contrast. FINDINGS: Sheepskin Pickler localizer images demonstrate no gross abdominal abnormality. No acute process of the imaged lower chest. Splenomegaly redemonstrated, 14.7 cm. The study is motion degraded. No hydronephrosis. Mild nonspecific bilateral perinephric stranding. There are a few subcentimeter T2 hyperintense foci within the right kidney which are too small to characterize however favor probable cysts. There is no bowel obstruction or bowel wall thickening identified. Motion degraded exam. Cholecystectomy. MRCP images demonstrate no biliary ductal dilation. Common bile duct measures 4 mm. No pancreatic duct dilation is seen. Numerous prior hepatic resections. Hepatic steatosis with parenchymal fibrosis and capsular retraction again noted. These findings in conjunction with the motion degradation limits the study. Dominant lesion within the right hepatic lobe on image 15 series 5 is noted within the region of the previously described 1.7 x 0.8 cm lesion seen on the 04/11/2021 exam. This lesion demonstrates a thickened and irregular T2 hyperintense wall which overall measures 5.3 x 3.5 x 4.1 cm. This lesion involves segments VII and VIII of the right hepatic lobe adjacent to the right portal vein. Increased signal on the diffusion-weighted series and this lesion appears to correlate with T2 shine through. There is intrinsic increased T1 signal within this lesion centrally. There are numerous tiny subcentimeter T2 hyperintense foci throughout the liver which are new compared to the 04/11/2021 exam are too small to characterize. No definitive enhancing hepatic mass lesions identified. IMPRESSION: 1. Motion degraded exam. 2. Hepatic steatosis with parenchymal fibrosis, capsular retraction and prior hepatic resections. 3. Dominant 5.3 cm lesion within the right hepatic lobe adjacent to the right portal vein is noted within the distribution of a previously described 1.7 cm lesion described on the 04/11/2021 exam which now contains intralesional hemorrhage without identifiable enhancement suggestive of probable treated metastasis. Attention on follow-up recommended 4. Numerous additional subcentimeter T2 hyperintense lesions of the liver are too small to characterize and are suboptimally evaluated secondary to the aforementioned motion artifact. These lesions may also represent areas of treated disease. Three-month follow-up recommended. 5. Splenomegaly. ACT 112: Negative or not required by law. The above report was generated using voice recognition software. It may contain grammatical, syntax or spelling errors. Electronically signed by: Edvin Castellanos M.D. 11/25/2022 12:54 PM PG Care Time/CCT Total # of Minutes Spent Total Time Spent with Patient: Total time spent is greater than 50% in coordination of care (as documented) at patient's floor/unit and/or counseling patient: Coding Level of Care Code 58685 SUB INP/OBS CARE 3/50MIN Diagnoses Liver function abnormality R94.5 Electrolyte abnormality E87.8 Colon cancer metastasized to liver C18.9; C78.7 Diarrhea R19.7 Neutropenia D70.1; T45.1X5A Neutropenia type: secondary to cancer chemotherapy Esophagitis K20.90 Pancytopenia due to antineoplastic chemotherapy D61.810; T45.1X5A Diabetes mellitus E11.9 Diabetes mellitus complication status: without complication Diabetes mellitus intermediate insulin use: without emt intermediate use Diabetes mellitus type: type 2 History of pulmonary embolism Z86.711 Hypertension I10 (5) Neutropenia Neutropenia type: secondary to cancer chemotherapy Qualified Code(s): D70.1 - Agranulocytosis secondary to cancer chemotherapy; T45.1X5A - Adverse effect of antineoplastic and immunosuppressive drugs, initial encounter (8) Diabetes mellitus Diabetes mellitus complication status: without complication Diabetes mellitus emt intermediate insulin use: without emt intermediate use Diabetes mellitus type: type 2 Qualified Code(s): E11.9 - Type 2 diabetes mellitus without complications
[2022-11-26 01:52] LABS: Cdiff Toxin B Gene (2yr or >) Positive Cdiff Gene (Neg)
[2022-11-26 02:19] LABS: Adenovirus F 40/41 PCR Not Detected (NotDetected); Astrovirus PCR Not Detected (NotDetected); Campylobacter PCR Not Detected (NotDetected); Cryptosporidium PCR Not Detected (NotDetected); Cyclospora cayetanensis PCR Not Detected (NotDetected); Entamoeba histolytica PCR Not Detected (NotDetected); Enteroaggregative E.coli(EAEC) Not Detected (NotDetected); Enteropathogenic E.coli (EPEC) Not Detected (NotDetected); Enterotoxigenic E.coli (ETEC) Not Detected (NotDetected); Giardia lamblia PCR Not Detected (NotDetected); Norovirus GI/GII PCR Not Detected (NotDetected); Plesiomonas shigelloides PCR Not Detected (NotDetected); Rotavirus A PCR Not Detected (NotDetected); Salmonella PCR Not Detected (NotDetected); Sapovirus PCR Not Detected (NotDetected); Shiga-like Toxin E.coli (STEC) Not Detected (NotDetected); Shigella/Enteroinvasive E.coli Not Detected (NotDetected); Vibrio cholerae PCR Not Detected (NotDetected); Vibrio species PCR Not Detected (NotDetected); Yersinia enterocolitica PCR Not Detected (NotDetected)
[2022-11-26 02:55] LABS: Cdiff Antigen Positive; Cdiff Toxin A+B Negative Cdiff Toxin (Negative)
[2022-11-26] MEDS: POT PHOSPHATE MONOBASIC W/ SOD TAB PO SCH (07:33)
[2022-11-26] MEDS: PANTOprazole 40 MG TAB PO SCH (07:33)
[2022-11-26] MEDS: MAGNESIUM CHLORIDE W/CALCIUM 64MG DELAYED REL TAB PO SCH (07:33)
[2022-11-26] MEDS: SUCRALFATE 1 GM TAB PO SCH ×3 (07:33→18:46)
[2022-11-26] MEDS: FERROUS SULFATE 325 MG TAB PO SCH (07:33)
[2022-11-26 08:29] LABS: BUN Creatinine Ratio 2.4 (10-20); Calcium 8.1 mg/dl (8.6-10.3); Creatinine Clr Calc Pharmacy 118.2 ml/min; Est GFR (African American) 116.2 ml/min; Est GFR (Non-African American) 100.3 ml/min; Magnesium 1.4 mg/dl (1.7-2.4); Phosphorus 2.8 mg/dl (2.5-4.9)
[2022-11-26 08:38] LABS: ALC (manual) 1.16 K/uL (1.2-3.4); ANC (manual) 5.98 K/uL (1.4-6.5); Basophils # (manual) 0.25 K/uL (0-0.2); Basophils % (manual) 3 %; Dohle Bodies 1+; Hematocrit (blood only) 27.8 % (42.0-52.0); Hemoglobin 8.5 g/dl (14.0-18.0); Lymphocytes # (manual) 1.16 K/uL (1.2-3.4); Lymphocytes % (manual) 14 %; Mean Corpuscular Hemoglobin 28.1 pg (25.0-34.0); Mean Corpuscular Hgb Conc 30.6 g/dL (32.0-36.0); Mean Corpuscular Volume 91.7 fL (80.0-100.0); Mean Platelet Volume 11.6 fL (9.4-12.4); Monocytes # (manual) 0.58 K/uL (0.11-0.59); Monocytes % (manual) 7 %; Myelocytes # (manual) 0.08 K/uL (0-0); Myelocytes % (manual) 1 %; Neutrophils # (manual) 5.98 K/uL (1.40-6.50); Neutrophils % (manual) 72 %; Nucleated RBC # (auto) 0.09 K/uL (0-0.12); Nucleated RBC % (auto) 1.1 %; Platelet Count 118 K/uL (130-400); Polychromasia 1+; Promyelocytes # (manual) 0.25 K/uL (0-0); Promyelocytes % (manual) 3 %; RDW Standard Deviation 52.4 fL (36.4-46.3); Red Blood Count 3.03 M/uL (4.70-6.10); Tear Drop Cells 2+; Toxic Granulation 2+; White Blood Count 8.31 K/ul (4.8-10.8)
[2022-11-26 08:52] LABS: Ferritin 196.8 ng/ml (8-388)
[2022-11-26 08:53] LABS: Folate (Folic Acid),Ser orPlas 17.12 ng/ml (>5.38)
[2022-11-26] MEDS ORDERED: VANCOMYCIN HCL 125 MG/2.5ML SOLN PO SCH (09:30)
[2022-11-26] MEDS: INSULIN ASPART PER UNIT CHARGE SC SCH ×3 (09:36→18:46)
[2022-11-26] MEDS: FILGRASTIM 480 MCG/1.6 ML VIAL SC SCH (10:03)
[2022-11-26] MEDS: POTASSIUM CHLORIDE CRTAB 20 MEQ TABCR PO SCH ×2 (10:03→18:45)
[2022-11-26] MEDS: MAGNESIUM SULFATE / D5W 1 GM/100 ML BAG IV SCH ×4 (10:04→17:26)
[2022-11-26] MEDS: VANCOMYCIN HCL 125 MG/2.5ML SOLN PO SCH ×2 (13:44→18:44)
[2022-11-26] MEDS: RASPBERRY SYRUP 5 ML UDP PO SCH ×2 (13:44→18:45)
--- NOTE | 2022-11-26 14:42 | Pharmacy Report ---
Pharmacy Glycemic Short Note 2 - Date of Service November 26, 2022 - Glycemic Short BSG Results (Last 24 hours): 11/25/22 11/25/22 11/26/22 16:36 20:13 07:38 Glucose 111 H POC Glucose 123 H 125 H 11/26/22 11/26/22 08:19 11:35 Glucose POC Glucose 114 H 146 H OUTPATIENT ANTIDIABETIC REGIMEN: * N/A HbA1c= 6.1% on 11/17/22 ASSESSMENT: * 52 y/o M currently admitted with neutropenia after recent chemotherapy for colon cancer. He has pre-diabetes and was not on any anti-diabetic meds prior to admission. Pharmacy was consulted for glycemic management on 11/24/22. * Patient received Lantus 5 units on 11/24/22 at HS. Fasting BSG yesterday was 102 mg/dl. Basal insulin discontinued at that time. * Novolog insulin was started based on stress of 1. * BSGs yesterday were well controlled at [phone] mg/dl. He received total 4 units of bolus insulin yesterday. * Fasting BSG today was 114 mg/dl. Since this is at goal with no basal insulin yesterday, I did not order anymore basal. * Will continue on same Novolog parameters as yesterday. PLAN FOR INPATIENT GLYCEMIC CONTROL: * Basal insulin * None * Bolus insulin * NovoLog per scale ACHS or Q6hrs while NPO * Goal Range: Low 110 mg/dL - High 140 mg/dL * Correction Factor: 45 mg/dL/unit * Nutritional / Prandial insulin per carb ratio of 1 unit per 16 grams CHO consumed
--- NOTE | 2022-11-26 17:40 | Discharge Summary ---
Discharge Summary Date of Service November 26, 2022 Notes For Next Care Provider Medication Changes From Visit KCl 40 meq po bid Vancomycin 125mg po qid x 9 more days Admission HPI Per Admitting Provider Naun is a 52-year-old male with a past medical history of type II DM, PE, colon cancer with liver metastasis, history of CLABSI, neutropenia, and GERD who was referred to the ER for evaluation of potential liver abscess in the setting of antineoplastic neutropenia. Patient was admitted 11/16/2022 - 11/20/2022 for vomiting and concern for GI bleed while on chemo. At that time EGD showed severe ulcerative esophagitis and gastric outlet obstruction with deformity of the pylorus, he was continued on Carafate 50 mL 4 times daily and Protonix twice daily with outpatient GI follow- up. Was tolerating a diet at discharge and gastric outlet obstruction thought to be worsened by GLP1/Mounjaro which was discontinued. He does have a history of partial colon resection at [facility] and is on chemo for recurrent liver disease. Elevated troponin: Previously 120, downtrended to 68. No anginal symptoms. Was thought to be due to demand. Per Pt: Dehydrated from diarrhea after discharge, and had a slightly poor appetite. Weak/tired last weds, called PCP. Saw Dr. Chen in the office --> blood work showed neutropenia and was recommended to have followup as inpatient for liver cysts which could be potential abscess. No fevers chills sweats No RUQ pain Diarrhea last day or so improved with immodium. Prior to that was 6-8 times per day. Overall feels clinically well, just tired and washed out from not eating much. Medical History: Reviewed Medications: Reviewed Surgical History: Reviewed Family history: Reviewed Allergies: Reviewed Social History: No tobacco/alcohol use Code Status: Full code, discussed with patient at bedside Principal Dx & Hospital Course #1 = Principal Diagnosis (1) Liver function abnormality: Liver abnormalities, history of metastatic colon adenocarcinoma with liver mets CTA/P with contrast 11/16/2022:: There is postsurgical change from several hepatic resections. A 6.5 x 4 cm ovoid low-attenuation focus in the right lobe image 101 at a site of previous surgery likely represents treated disease. The liver demonstrates diffusely diminished attenuation indicating steatosis. There is no intrahepatic biliary ductal dilatation. The hepatic veins and portal veins are patent. Numerous subcentimeter low-attenuation foci are seen in the posterior right lobe of the liver, with automotive sales representative foci seen on images #48, #70, #73, and #80 these are pathologically indeterminate but 4 not seen previously. Pathologically indeterminate? Malignant lesions versus cystic change. On discussion with outside PCP? Potential for liver abscesses in the setting of neutropenia. Repeat CTA/P on admission: Redemonstrated lesions as above Discussed with interventional radiology and hematology oncology. On review of prior imaging lesions have been present in some part for at least many weeks/months although they are slightly larger. Suspect if these were truly h epatic abscesses patient would likely be floridly septic, leukocytosis is not reliable measure given his antineoplastic neutropenia however he has not had fever/chills/sweats, Pro-Donald remains normal, and while he feels weak with electrolyte abnormalities as alternative explanations Blood cultures drawn, pending-no growth to date over 48 hours Patient remains afebrile, no abd pain MRI liver performed and shows likely treated metastases-discussed with his oncologist who does not make any further recommendations regarding this issue at this time (2) Electrolyte abnormality: Hypomagnesemia, hypokalemia, hypophosphatemia With poor p.o. intake, recently discharged after stopping Mounjaro and with gastric outlet obstruction. ALso with ongoing diarrhea -Tolerating regular diet here without any nausea or vomiting -Continued to have severe jsrelyat-azya-lc as below -Replaced with p.o. potassium, p.o. K-Phos, and IV magnesium on both days -continue KCl 20 meq po bid on discharge with close monitoring as outpt -avoid po magnesium because can worsen diarrhea -check BMP, magnesium at [facility] tomorrow with labs and can get infusions at [facility] if needed. (3) Diarrhea: likely 2/2 chemo but checked stool studies --> PCR BioFire NEGATOVE C. diff gene positive but toxin negative---> because he is immunosuppressed, having diarrhea, and received Zosyn this admission initially, will treat for C. diff diarrhea with Vanco 125mg po qid x 10 days replaced lytes (4) Clostridioides difficile diarrhea: (5) Colon cancer metastasized to liver: As noted above (6) Neutropenia: Neutropenia 2/2 chemo for descending colon adenocarcinoma Neupogen given and now ANC up to 5000 Never had a fever (7) Esophagitis: Recent upper GI bleed No recurrence Admitting hemoglobin 8.6, stable today, no further melena Continue Protonix and Carafate Needs repeat EGD as outpatient in 6 to 8 weeks H. pylori and biopsies from previous EGD are negative (8) Pancytopenia due to antineoplastic chemotherapy: Noted, transfusional support as needed-all counts trending upward now (9) Diabetes mellitus: Type II DM Mounjaro discontinued due to contribution to gastroparesis Goal BSG [id number] Basal bolus SSI while inpatient Diabetic diet (10) History of pulmonary embolism: History of PE/DVT 2019 after starting chemo. No recurrent thromboembolism while on Xarelto. Compliant with Xarelto, transiently held for GI bleed at prior presentation then restarted. Continue Xarelto (11) Hypertension: Blood pressures controlled Continue losartan Plan Disposition-stable for dc to home Discharge Exam Constitutional WD/WN, vitals as above Respiratory normal respiratory effort, lungs clear to auscultation Cardiovascular RRR, no murmur, no edema Gastrointestinal (Abdomen) normal bowel sounds, soft, nontender, no hepatosplenomegaly Skin no rashes, warm and dry Psychiatric A+Ox3, euthymic affect Updated Medication List Medication Instructions Recorded Confirmed Type fluticasone propionate 50 2 spray intranasal DAILY PRN 04/25/18 11/24/22 History mcg/actuation nasal Allergy Symptoms spray,suspension (Flonase Allergy Relief) pantoprazole 40 mg tablet,delayed 40 mg PO BID 07/22/18 11/24/22 History release (Protonix) rivaroxaban 20 mg tablet (Xarelto) 20 mg PO QPM 03/19/19 11/24/22 History ferrous sulfate 325 mg (65 mg 65 mg PO DAILY 11/16/22 11/24/22 History iron) tablet (iron) loperamide 2 mg capsule 2 mg PO DIRECTED PRN Diarrhea 11/16/22 11/24/22 History losartan 25 mg tablet 25 mg PO DAILY 11/16/22 11/24/22 History ondansetron HCl 8 mg tablet 0 mg PO DIRECTED PRN 11/16/22 11/24/22 History NAUSEA/VOMITING sucralfate 1 gram tablet (Carafate) 1 g PO Q6H 4 weeks #112 tabs 11/22/22 11/24/22 Rx clindamycin phosphate 1 % topical 1 applic topical DIRECTED PRN 11/24/22 11/24/22 History gel Rash potassium chloride 20 mEq 20 meq PO BID #28 tabs 11/26/22 Rx tablet,extended release(part/cryst) vancomycin 125 mg capsule 125 mg PO QID 9 days #36 caps 11/26/22 Rx (Vancocin) Hospital Stay Data Consultations 11/24/22 14:02 ED Decision to Admit Stat Diagnostic Imagining Performed 11/24/22 11:16 CT abd pelvis IV con only Stat 11/25/22 00:00 MR abdomen wo/w con Urgent Pending Results Patient Have Any Pending Studies at Discharge: Yes (Final blood culture results- no growth to date) Discharge Instructions Given to Patient (Per Discharging Provider) Please take the Vancomycin antibiotic for C. diff diarrhea 4 times per day for 9 more days. You were started on a potassium supplement twice a day and should have your potassium and magnesium levels checked routinely with the cancer center. Total Time Total Time Spent Total Time Spent (In Minutes): 40 min Coding Level of Care Code 85061 INP/OBS DISCH >30 MIN Diagnoses Liver function abnormality R94.5 Electrolyte abnormality E87.8 Diarrhea R19.7 Clostridioides difficile diarrhea A04.72 Colon cancer metastasized to liver C18.9; C78.7 Neutropenia D70.1; T45.1X5A Neutropenia type: secondary to cancer chemotherapy Esophagitis K20.90 Pancytopenia due to antineoplastic chemotherapy D61.810; T45.1X5A Diabetes mellitus E11.9 Diabetes mellitus type: type 2 Diabetes mellitus termite technician insulin use: without termite technician use Diabetes mellitus complication status: without complication History of pulmonary embolism Z86.711 Hypertension I10
[2022-11-26] MEDS: RIVAROXABAN 20 MG TAB PO SCH (18:45)
[2022-11-26] MEDS ORDERED: HEPARIN 100 UNIT/ML 5ML FLUSH FLUSH STA (19:52)
== END 2022-11-26 20:30 | disposition home or self-care (01) | DRG 435 ==
LOC: ED 10:34 → 2W 15:05 → SUATTDRO 15:05 → 2W 17:32

== ENCOUNTER 2023-08-26 11:25 | Observation (INO) ==
--- NOTE | 2023-08-26 11:43 | Emergency Department Note ---
Impression & Plan GIB (gastrointestinal bleeding) Admission ED Provider Note HPI: History obtained from patient. The patient is a 53-year-old gentleman with history of metastatic colon cancer to the liver, currently on chemotherapy (5FU) and recent radiation therapy at [facility] ([id number]), status post Neulasta injection yesterday, presents the emergency department with a chief complaint of rectal bleeding. Patient was here in the emergency room on Sunday and was seen by myself, he was ultimately discharged home following reassuring CT imaging and lab work after an episode of rectal bleeding. His Xarelto has been on hold since Sunday. Patient states that he had an additional bloody bowel movement last night and 1 this morning and therefore came to the ED to be assessed. Patient states he was also feeling somewhat weak this morning when he was taking a shower. Patient denies any chest pain, denies any shortness of breath, denies any presyncopal sensation, denies any episodes of syncope. On arrival here to the ED the patient is hemodynamically stable, he is saturating well on room air, he otherwise appears to be in no acute distress on my initial assessment. ROS: - Per HPI Differential Diagnosis: Lower GI bleed, internal hemorrhoids, ischemic colitis, hemorrhagic diarrhea, C. difficile colitis, inflammatory bowel disease, viral diarrhea, amongst other potential pathologies. *Outpatient medications and allergy history reviewed. PE: General: Alert HEENT: Normocephalic, trachea midline Eyes: Extraocular eye movement is intact, no scleral erythema Pulmonary: Clear to auscultation bilaterally, no wheezing Cardio: Regular rate and rhythm GI: Abdomen is soft to palpation : No suprapubic tenderness MSK: No evidence of trauma or malformation of the extremities, no edema Skin: No evidence of rash Neuro: Alert, no focal deficits Psychiatric: Cooperative INDEPENDENT INTERPRETATIONS: media monitor: (As interpreted by myself): - An order was placed for continuous cardiac monitoring - Patient was noted to be in sinus rhythm with a rate of 70 EKG: (As interpreted by myself): Rate: 79 Rhythm: Normal sinus rhythm Intervals: Within normal limits ST changes: No ST elevation Time: 1148 Interventions provided in ED: -IV fluid bolus Medical Decision Making: IV was established and lab work obtained, patient was placed on clinical research monitor. Lab work shows a leukocytosis of 26.73 (patient received Neulasta injection yesterday). Hemoglobin is stable at 13.7 which is unchanged from his lab work 2 days ago, platelet count is slightly reduced at 123. CMP does not show any critical findings, no evidence of acute kidney injury, BUN is normal, procalcitonin is low, lipase is normal. Urinalysis shows trace ketones, viral panel testing of the stool is negative. Positive C. difficile gene with negative reflex. Patient did have largely unremarkable CT imaging performed just 2 nights ago therefore this was not repeated, his abdomen is soft and nontender on my exam. On my reassessment I discussed admission versus outpatient management with the patient and his at the bedside. At this time patient has had episodes of weakness and he states he feels that his symptoms are getting slightly worse. Given his multiple issues including metastatic colon cancer to the liver currently on chemo and radiation therapy, I feel he would benefit from admission for observation. Patient is in agreement. Case was discussed with the on-call hospitalist, Dr. Alcala, and the patient was placed for admission in stable condition. Consultants/Discussions held with other healthcare providers: -Hospitalist, Dr. Alcala Disposition discussion held by myself with: -Patient and patient's at the bedside Diagnosis: 1. Lower GI bleed, acute 2. History of metastatic colon cancer, currently on chemotherapy 3. Ketonuria, acute, trace 4. Leukocytosis in the setting of recent Neulasta injection 5. Generalized weakness/fatigue Disposition: Admission Charlie Castro DO Emergency Medicine Past Med/Surg History Problem List (Updated 08/26/23 @ 17:36 by Charlie Castro DO) GIB (gastrointestinal bleeding) (Acute) BRBPR (bright red blood per rectum) (Acute) Abnormal CT of the abdomen (Acute) Colon cancer metastasized to liver Lung nodule, solitary Anemia Bloodstream infection due to Port-A-Cath Diabetes mellitus Pancytopenia due to antineoplastic chemotherapy Pancytopenia Anemia GERD (gastroesophageal reflux disease) Iron deficiency Liver function abnormality Neutropenia (Acute) Electrolyte abnormality Esophagitis Hypertension Colon cancer 02/2018--sx, chemo--metastasized to liver and lymph nodes GERD (gastroesophageal reflux disease) Diabetes mellitus, type 2 History of pulmonary embolism Noted on 09/2018 CT scan of chest > Xarelto Medical History (Updated 08/26/23 @ 17:36 by Charlie Castro DO) Clostridioides difficile diarrhea History of pulmonary embolism Gram positive sepsis Sleep apnea mild > no device Acute blood loss anemia Gastric outlet obstruction Elevated troponin Leukocytosis Abdominal pain Acute upper gastrointestinal bleeding Thrombocytopenia Colon cancer metastasized to liver Diabetes 1.5, managed as type 2 Anemia Surgical History History of surgery of liver 05/2019 @ [facility] [place] 30% removed at that time 2021 > another cancerous area removed "TACE" procedure in August 2022 [facility] [place] of colon resection 01/2019 @ [facility] [place] 6-8 inches removed with portion of liver removed (40%) History of colostomy reversal 05/2019 @ [facility] [place] liver sx History of colonoscopy History of colostomy 2017 @ [facility] [place], per pt no colon resection only colostomy History of vascular access device Aport on right side History of wisdom tooth extraction Hx of vasectomy History of esophagogastroduodenoscopy (EGD) Family History Unknown Family history of diabetes mellitus Aunt Family hx of colon cancer Other No family history of adverse response to anesthesia Social History Smoking Status: Former smoker Second Hand Exposure: No; Do You Dip or Chew Tobacco: No; Hx Alcohol Use: Yes Alcohol type: other Hx Substance Use: No Preferred Language: Belizean Communication Ability: Effective Cert Pharmacy Tech Required: No Beliefs That Will Affect Care: None marital status: Current Living Situation: Spouse and Family Current Living Situation Comment: Lives with and 2 daughters Feels Safe at Home: Yes Assistive Devices: Glasses Allergies Allergies Allergy/AdvReac Type Severity Reaction Status Date / Time cetuximab [From Erbitux] Allergy Severe Bronchial Verified 08/26/23 14:20 Spasms semaglutide [From Ozempic] Allergy Intermediate Gastrointestinal Unverified 08/26/23 14:20 Upset tirzepatide [From Mounjaro] Allergy Intermediate Gastrointestinal Unverified 08/26/23 14:20 Upset Home Meds Home Medications Medication Instructions Recorded Confirmed fluticasone propionate 50 2 spray intranasal DAILY PRN 04/25/18 08/26/23 mcg/actuation nasal Allergy Symptoms spray,suspension (Flonase Allergy Relief) pantoprazole 40 mg tablet,delayed 40 mg PO QAM 07/22/18 08/26/23 release (Protonix) rivaroxaban 20 mg tablet (Xarelto) 20 mg PO QPM 03/19/19 08/26/23 ferrous sulfate 325 mg (65 mg 65 mg PO DAILY 11/16/22 08/26/23 iron) tablet (iron) loperamide 2 mg capsule 2 mg PO DIRECTED PRN Diarrhea 11/16/22 08/26/23 losartan 25 mg tablet 25 mg PO QAM 11/16/22 08/26/23 ondansetron HCl 8 mg tablet 8 mg PO DIRECTED PRN 11/16/22 08/26/23 NAUSEA/VOMITING clindamycin phosphate 1 % topical 1 applic topical DIRECTED PRN 11/24/22 08/26/23 gel Rash metformin 1,000 mg tablet 1,000 mg PO BID 01/01/23 08/26/23 folfirinox See Rx Instructions .Route .COMPLEX 08/26/23 08/26/23 Results & Data (ED) Vital Signs Vital Signs - 24 hr 08/26/23 11:30 08/26/23 11:34 08/26/23 12:10 Temperature 36.9 C Temperature Source Temporal Artery Scan Pulse Rate 78 71 Pulse Rate from SpO2 Sensor Respiratory Rate 14 Respiratory Effort / Characteristics Non-Labored Spontaneous Respiratory Depth Normal Blood Pressure 127/88 Blood Pressure Mean 101 Pulse Oximetry 95 Oxygen Delivery Method Room Air Room Air Sepsis Recent Fever Within 48 Hours No Sepsis New/Unexplained Change in Mental Status No Sepsis Action Taken by Nursing No Action Required 08/26/23 13:05 08/26/23 13:30 08/26/23 14:00 Temperature Temperature Source Pulse Rate 72 70 69 Pulse Rate from SpO2 Sensor Respiratory Rate 19 16 13 Respiratory Effort / Characteristics Respiratory Depth Blood Pressure 111/69 Blood Pressure Mean 83 Pulse Oximetry Oxygen Delivery Method Sepsis Recent Fever Within 48 Hours Sepsis New/Unexplained Change in Mental Status Sepsis Action Taken by Nursing 08/26/23 14:30 08/26/23 14:55 08/26/23 14:55 Temperature Temperature Source Pulse Rate 71 72 Pulse Rate from SpO2 Sensor 70 Respiratory Rate 18 13 Respiratory Effort / Characteristics Respiratory Depth Blood Pressure 114/83 Blood Pressure Mean 89 Pulse Oximetry 97 Oxygen Delivery Method Sepsis Recent Fever Within 48 Hours Sepsis New/Unexplained Change in Mental Status Sepsis Action Taken by Nursing 08/26/23 15:00 08/26/23 15:00 08/26/23 15:30 Temperature Temperature Source Pulse Rate 70 73 Pulse Rate from SpO2 Sensor 71 72 Respiratory Rate 12 11 L Respiratory Effort / Characteristics Respiratory Depth Blood Pressure 117/80 Blood Pressure Mean 85 Pulse Oximetry 94 88 L Oxygen Delivery Method Sepsis Recent Fever Within 48 Hours Sepsis New/Unexplained Change in Mental Status Sepsis Action Taken by Nursing 08/26/23 15:30 08/26/23 15:47 08/26/23 16:00 Temperature Temperature Source Pulse Rate Pulse Rate from SpO2 Sensor 75 Respiratory Rate Respiratory Effort / Characteristics Respiratory Depth Blood Pressure 113/78 124/73 Blood Pressure Mean 88 95 Pulse Oximetry 96 Oxygen Delivery Method Sepsis Recent Fever Within 48 Hours Sepsis New/Unexplained Change in Mental Status Sepsis Action Taken by Nursing 08/26/23 16:01 08/26/23 16:30 08/26/23 16:30 Temperature Temperature Source Pulse Rate 73 67 Pulse Rate from SpO2 Sensor 73 67 Respiratory Rate 20 16 Respiratory Effort / Characteristics Respiratory Depth Blood Pressure 116/77 Blood Pressure Mean 90 Pulse Oximetry 95 92 Oxygen Delivery Method Sepsis Recent Fever Within 48 Hours Sepsis New/Unexplained Change in Mental Status Sepsis Action Taken by Nursing Laboratory Data 08/26/23 11:45 08/26/23 11:45 Lab Results 08/26/23 08/26/23 08/26/23 Range/Units 11:45 11:56 13:15 WBC 26.73 H (4.8-10.8) K/ul RBC 4.85 (4.70-6.10) M/uL Hgb 13.7 L (14.0-18.0) g/dl Hct 41.8 L (42.0-52.0) % MCV 86.2 (80.0-100.0) fL MCH 28.2 (25.0-34.0) pg MCHC 32.8 (32.0-36.0) g/dL RDW Std Deviation 47.1 H (36.4-46.3) fL RDW Coeff of Bulmaro 14.8 H (11.5-14.5) % Plt Count 123 L (130-400) K/uL MPV 11.6 (9.4-12.4) fL Immature Gran % (Auto) 5.9 % Neut % (Auto) 90.7 % Lymph % (Auto) 2.4 % Mathews % (Auto) 0.3 % Eos % (Auto) 0.1 % Baso % (Auto) 0.6 % Neut # (Auto) 24.25 H (1.40-6.50) K/uL Lymph # (Auto) 0.64 L (1.20-3.40) K/uL Mathews # (Auto) 0.08 L (0.11-0.59) K/uL Eos # (Auto) 0.04 (0.00-0.50) K/uL Baso # (Auto) 0.15 (0.00-0.20) K/uL Immature Gran # (Auto) 1.57 H (0.01-0.20) K/uL PT 10.5 (9.0-12.0) Seconds INR 1.0 (0.9-1.1) Sodium 135 L (136-145) mmol/L Potassium 3.9 (3.5-5.1) mmol/L Chloride 100 (98-107) mmol/L Carbon Dioxide 26 (21-32) mmol/L Anion Gap 9 (3-11) BUN 18 (6-23) mg/dl Creatinine 1.09 (0.6-1.4) mg/dl Est Cr Clr Drug Dosing 94.2 ml/min Est GFR ( Amer) 88.1 ml/min Est GFR (Non-Af Amer) 76.0 ml/min BUN/Creatinine Ratio 16.5 (10-20) Glucose 255 H (70-99(Fasting)) mg/dl Calcium 9.3 (8.6-10.3) mg/dl Magnesium 2.0 (1.7-2.4) mg/dl Total Bilirubin 1.1 H D (0.2-1.0) mg/dl AST 20 (13-39) U/L ALT 29 (7-52) U/L Alkaline Phosphatase 164 H (34-104) U/L Troponin I High Sens 6.4 (0-20) pg/ml Total Protein 7.5 (6.0-8.3) gm/dl Albumin 4.3 (3.4-5.0) gm/dl Globulin 3.2 (2.5-4.0) gm/dl Albumin/Globulin Ratio 1.3 (0.9-2) Lipase 22 (11-82) U/L Procalcitonin 0.06 (0-0.5) ng/ml Urine Color Dark Yellow Urine Appearance Clear (Clear) Urine pH 5.5 (4.5-7.5) Ur Specific [place] 1.029 (1.000-1.030) Urine Protein 1+ H (Negative) Urine Glucose (UA) Trace H (Negative) Urine Ketones Trace H (Negative) Urine Blood Negative (Negative) Urine Nitrite Negative (Negative) Urine Bilirubin 1+ H (Negative) Urine Urobilinogen Negative (Negative) Ur Leukocyte Esterase Negative (Negative) Urine WBC (Auto) 0-5 (0-5) /hpf Urine RBC (Auto) 0-2 (0-2) /hpf U Hyaline Cast (Auto) 0-2 (0-2) /lpf U Epithel Cells (Auto) 0-2 (0-2) /hpf Urine Bacteria (Auto) None Seen (None Seen) Stl C. cayetanensis PCR (NotDetected) Stool Rotavirus A PCR (NotDetected) Stl Adenov F 40/41 PCR (NotDetected) Stool Astrovirus (PCR) (NotDetected) Stool Campylobacter PCR (NotDetected) Stl C. diff Tox B Gene (Neg) Stl C.difficile Tox A&B (Negative) Stool Cryptosporidium PCR (NotDetected) Stl E.coli Shiga Tox PCR (NotDetected) Stl Enterotoxigenic E PCR (NotDetected) Stool EPEC (PCR) (NotDetected) Stool EAEC (PCR) (NotDetected) Stl E. histolytica PCR (NotDetected) Stool Giardia Lamblia PCR (NotDetected) Stool Salmonella PCR (NotDetected) Stool Sapovirus (PCR) (NotDetected) Stl P. shigelloides PCR (NotDetected) Stl Shigella/EIEC PCR (NotDetected) St Y.enterocolitica PCR (NotDetected) Stool Vibrio (PCR) (NotDetected) Stl Vibrio cholerae PCR (NotDetected) Stl Norovirus GI/GII PCR (NotDetected) Blood Type O Positive Antibody Screen NEGATIVE 08/26/23 Range/Units 15:00 WBC (4.8-10.8) K/ul RBC (4.70-6.10) M/uL Hgb (14.0-18.0) g/dl Hct (42.0-52.0) % MCV (80.0-100.0) fL MCH (25.0-34.0) pg MCHC (32.0-36.0) g/dL RDW Std Deviation (36.4-46.3) fL RDW Coeff of Bulmaro (11.5-14.5) % Plt Count (130-400) K/uL MPV (9.4-12.4) fL Immature Gran % (Auto) % Neut % (Auto) % Lymph % (Auto) % Mathews % (Auto) % Eos % (Auto) % Baso % (Auto) % Neut # (Auto) (1.40-6.50) K/uL Lymph # (Auto) (1.20-3.40) K/uL Mathews # (Auto) (0.11-0.59) K/uL Eos # (Auto) (0.00-0.50) K/uL Baso # (Auto) (0.00-0.20) K/uL Immature Gran # (Auto) (0.01-0.20) K/uL PT (9.0-12.0) Seconds INR (0.9-1.1) Sodium (136-145) mmol/L Potassium (3.5-5.1) mmol/L Chloride (98-107) mmol/L Carbon Dioxide (21-32) mmol/L Anion Gap (3-11) BUN (6-23) mg/dl Creatinine (0.6-1.4) mg/dl Est Cr Clr Drug Dosing ml/min Est GFR ( Amer) ml/min Est GFR (Non-Af Amer) ml/min BUN/Creatinine Ratio (10-20) Glucose (70-99(Fasting)) mg/dl Calcium (8.6-10.3) mg/dl Magnesium (1.7-2.4) mg/dl Total Bilirubin (0.2-1.0) mg/dl AST (13-39) U/L ALT (7-52) U/L Alkaline Phosphatase (34-104) U/L Troponin I High Sens (0-20) pg/ml Total Protein (6.0-8.3) gm/dl Albumin (3.4-5.0) gm/dl Globulin (2.5-4.0) gm/dl Albumin/Globulin Ratio (0.9-2) Lipase (11-82) U/L Procalcitonin (0-0.5) ng/ml Urine Color Urine Appearance (Clear) Urine pH (4.5-7.5) Ur Specific [place] (1.000-1.030) Urine Protein (Negative) Urine Glucose (UA) (Negative) Urine Ketones (Negative) Urine Blood (Negative) Urine Nitrite (Negative) Urine Bilirubin (Negative) Urine Urobilinogen (Negative) Ur Leukocyte Esterase (Negative) Urine WBC (Auto) (0-5) /hpf Urine RBC (Auto) (0-2) /hpf U Hyaline Cast (Auto) (0-2) /lpf U Epithel Cells (Auto) (0-2) /hpf Urine Bacteria (Auto) (None Seen) Stl C. cayetanensis PCR Not Detected (NotDetected) Stool Rotavirus A PCR Not Detected (NotDetected) Stl Adenov F 40/41 PCR Not Detected (NotDetected) Stool Astrovirus (PCR) Not Detected (NotDetected) Stool Campylobacter PCR Not Detected (NotDetected) Stl C. diff Tox B Gene Positive Cdiff Gene H (Neg) Stl C.difficile Tox A&B Negative Cdiff Toxin (Negative) Stool Cryptosporidium PCR Not Detected (NotDetected) Stl E.coli Shiga Tox PCR Not Detected (NotDetected) Stl Enterotoxigenic E PCR Not Detected (NotDetected) Stool EPEC (PCR) Not Detected (NotDetected) Stool EAEC (PCR) Not Detected (NotDetected) Stl E. histolytica PCR Not Detected (NotDetected) Stool Giardia Lamblia PCR Not Detected (NotDetected) Stool Salmonella PCR Not Detected (NotDetected) Stool Sapovirus (PCR) Not Detected (NotDetected) Stl P. shigelloides PCR Not Detected (NotDetected) Stl Shigella/EIEC PCR Not Detected (NotDetected) St Y.enterocolitica PCR Not Detected (NotDetected) Stool Vibrio (PCR) Not Detected (NotDetected) Stl Vibrio cholerae PCR Not Detected (NotDetected) Stl Norovirus GI/GII PCR Not Detected (NotDetected) Blood Type Antibody Screen Administered Medications Discontinued Medications Sodium Chloride (Nss) 1,000 mls @ 999 mls/hr IV .Q1H1M STA Stop: 08/26/23 12:34 Last Infusion: 08/26/23 13:07 Dose: Infused Documented By: Admin: 08/26/23 12:02 Dose: 999 mls/hr Documented By: ANU Imaging Data Radiologist's Impression: Aorta Iliac Ultrasound 08/26/23 14:37 US duplex aorta/iliacs/IVC ltd HISTORY: 53 years-old Male ?IVC thrombus on CT transabdominal pain with colon cancer COMPARISON: CT 08/24/2023 TECHNIQUE: Multiple real-time sonographic images of the hepatic vasculature were obtained assessing grayscale appearance, color and spectral flow FINDINGS: IVC is mostly obscured by bowel gas. The imaged portions of the IVC are patent with normal spectral waveforms. The visualized iliac veins are patent. IMPRESSION: Limited exam secondary to obscuring bowel gas. The visualized IVC is patent. ACT 112: Negative or not required by law. The above report was generated using voice recognition software. It may contain grammatical, syntax or spelling errors. Electronically signed by: Edvin Castellanos M.D. 08/26/2023 5:16 PM Discharge Plan Visit Data Chief Complaint: Rectal Bleed Stated Complaint: BLOOD IN STOOL, WEAKNESS ED Provider: Charlie Castro Discharge Problem: GIB (gastrointestinal bleeding) Forms Stand Alone Forms: Replaced By [facility] Prescriptions Prescriptions: No Action fluticasone propionate [Flonase Allergy Relief] 50 mcg/actuation Thompson,Suspension 2 spray INTRANASAL DAILY PRN (Reason: Allergy Symptoms) pantoprazole [Protonix] 40 mg Tablet,Delayed Release (Dr/Ec) 40 mg PO QAM Xarelto 20 mg tablet 20 mg PO QPM loperamide 2 mg Capsule 2 mg PO DIRECTED PRN (Reason: Diarrhea) Rx Instructions: administer after each loose stool until symptoms controlled; do not exceed 8 mg per 24 hrs ondansetron HCl 8 mg Tablet 8 mg PO DIRECTED PRN (Reason: NAUSEA/VOMITING) Rx Instructions: PT UNSURE OF STRENGTH, UNABLE TO VERIFY. ferrous sulfate [iron] 325 mg (65 mg iron) Tablet 65 mg PO DAILY losartan 25 mg tablet 25 mg PO QAM Rx Instructions: per pt he thinks his primary care wants him to stop clindamycin phosphate 1 % gel 1 applic TOPICAL DIRECTED PRN (Reason: Rash) metformin 1,000 mg Tablet 1,000 mg PO BID folfirinox See Rx Instructions .ROUTE .COMPLEX Rx Instructions: Pt's chemotherapy. Just started on 08/26/23, unsure of next infusion and strength. Referrals Referrals: Anil Giles MD [Primary Care Provider] - Discharge Problem: GIB (gastrointestinal bleeding) Qualifiers: GI bleed type/associated pathology: unspecified gastrointestinal hemorrhage type Qualified Code(s): K92.2 - Gastrointestinal hemorrhage, unspecified
[2023-08-26] MEDS: SODIUM CHLORIDE 0.9% 1,000 ML IV STA (12:02)
[2023-08-26 12:20] LABS: Hematocrit (blood only) 41.8 % (42.0-52.0); Hemoglobin 13.7 g/dl (14.0-18.0); Mean Corpuscular Hemoglobin 28.2 pg (25.0-34.0); Mean Corpuscular Hgb Conc 32.8 g/dL (32.0-36.0); Mean Corpuscular Volume 86.2 fL (80.0-100.0); Mean Platelet Volume 11.6 fL (9.4-12.4); Platelet Count 123 K/uL (130-400); RDW Coefficient of Variation 14.8 % (11.5-14.5); RDW Standard Deviation 47.1 fL (36.4-46.3); Red Blood Count 4.85 M/uL (4.70-6.10); White Blood Count 26.73 K/ul (4.8-10.8)
[2023-08-26 12:34] LABS: Prothrombin Time 10.5 Seconds (9.0-12.0)
[2023-08-26 12:47] LABS: Albumin Globulin Ratio 1.3 (0.9-2); Albumin Level 4.3 gm/dl (3.4-5.0); BUN Creatinine Ratio 16.5 (10-20); Basophils # (auto) 0.15 K/uL (0.00-0.20); Basophils % (auto) 0.6 %; Bilirubin,Total 1.1 mg/dl (0.2-1.0); Calcium 9.3 mg/dl (8.6-10.3); Creatinine Clr Calc Pharmacy 94.2 ml/min; Eosinophils # (auto) 0.04 K/uL (0.00-0.50); Eosinophils % (auto) 0.1 %; Est GFR (African American) 88.1 ml/min; Globulin 3.2 gm/dl (2.5-4.0); Immature Granulocytes # (auto) 1.57 K/uL (0.01-0.20); Immature Granulocytes % (auto) 5.9 %; Lymphocytes # (auto) 0.64 K/uL (1.20-3.40); Lymphocytes % (auto) 2.4 %; Monocytes # (auto) 0.08 K/uL (0.11-0.59); Monocytes % (auto) 0.3 %; Neutrophils # (auto) 24.25 K/uL (1.40-6.50); Neutrophils % (auto) 90.7 %; Potassium 3.9 mmol/L (3.5-5.1); Total Protein 7.5 gm/dl (6.0-8.3); Troponin I High Sensitivity 6.4 pg/ml (0-20)
[2023-08-26 13:36] LABS: Appearance Urine Clear (Clear); Bacteria Urine Automated None Seen (None Seen); Bilirubin Urine 1+ (Negative); Blood Urine Negative (Negative); Cast Urine Automated 0-2 /lpf (0-2); Color Urine Dark Yellow; Epithelial Cell Urine Auto 0-2 /hpf (0-2); Glucose Urine UA Trace (Negative); Ketones Urine Trace (Negative); Leukocyte Esterase Urine Negative (Negative); Nitrite Urine Negative (Negative); Protein Urine 1+ (Negative); RBC Urine Automated 0-2 /hpf (0-2); Specific Gravity Urine 1.029 (1.000-1.030); Urobilinogen Urine Negative (Negative); WBC Urine Automated 0-5 /hpf (0-5); pH Urine 5.5 (4.5-7.5)
--- NOTE | 2023-08-26 13:42 | Electrocardiogram Report ---
Test Reason : Blood Pressure : / mmHG Vent. Rate : 079 BPM Atrial Rate : 079 BPM P-R Int : 136 ms QRS Dur : 080 ms QT Int : 372 ms P-R-T Axes : 017 021 067 degrees QTc Int : 426 ms Poor data quality, interpretation may be adversely affected Sinus rhythm with Premature supraventricular complexes Low voltage QRS Cannot rule out Old Anterior infarct (cited on or before 24-AUG-2023) Abnormal ECG When compared with ECG of 24-AUG-2023 15:34, Premature supraventricular complexes are now Present Confirmed by Roel Sullivan ([id number]) on 08/26/2023 1:42:11 PM Referred By: Confirmed By:Roel Sullivan
--- NOTE | 2023-08-26 14:15 | History & Physical Report ---
Date of Service August 26, 2023 Assessment & Plan (1) BRBPR (bright red blood per rectum): Plan: Monitor overnight for worsening anemia. Repeat Hgb q12h. Transfuse < 7 Stool, c. diff PCR - please collect with next bowel movement - history of c. diff notes but no profuse diarrhea of concern for this currently Clear liquid diet (2) Colon cancer metastasized to liver: (3) Diabetes mellitus: Plan: HbA1C 6.1 in November, repeat with AM labs Continue metformin Novolog correction factor only (4) History of pulmonary embolism: Plan: Xarelto currently on hold, will get US IVC doppler as prior CT suggests mixing of blood vs. clot in IVC (5) Leukocytosis: Plan: Suspected secondary to Neulasta Plan VTE Prophylaxis - SCD Diet - clear liquid, T2DM Disposition - observation med/surg Admission and Anticipated Discharge Date Admission Date: August 26, 2023 History of Present Illness Chief Complaint: Rectal bleeding Primary Care Provider: Anil Giles MD Naun Santamaria is a 53 year old male wtih metastatic colon cancer who presents to the ER with rectal bleeding. Initial bleeding started on Sunday following chemotherapy and diarrhea from chemotherapy while on Xarelto. He presented to the ER on Sunday and was ultimately discharged with a stable hemoglobin and Xarelto was appropriately discontinued. Allergies Allergy/AdvReac Type Severity Reaction Status Date / Time cetuximab [From Erbitux] Allergy Severe Bronchial Verified 08/26/23 14:20 Spasms semaglutide [From Ozempic] Allergy Intermediate Gastrointestinal Unverified 08/26/23 14:20 Upset tirzepatide [From Mounjaro] Allergy Intermediate Gastrointestinal Unverified 08/26/23 14:20 Upset Home Medications Medication Instructions Recorded Confirmed Type fluticasone propionate 50 2 spray intranasal DAILY PRN 04/25/18 08/26/23 History mcg/actuation nasal Allergy Symptoms spray,suspension (Flonase Allergy Relief) pantoprazole 40 mg tablet,delayed 40 mg PO QAM 07/22/18 08/26/23 History release (Protonix) rivaroxaban 20 mg tablet (Xarelto) 20 mg PO QPM 03/19/19 08/26/23 History ferrous sulfate 325 mg (65 mg 65 mg PO DAILY 11/16/22 08/26/23 History iron) tablet (iron) loperamide 2 mg capsule 2 mg PO DIRECTED PRN Diarrhea 11/16/22 08/26/23 History losartan 25 mg tablet 25 mg PO QAM 11/16/22 08/26/23 History ondansetron HCl 8 mg tablet 8 mg PO DIRECTED PRN 11/16/22 08/26/23 History NAUSEA/VOMITING clindamycin phosphate 1 % topical 1 applic topical DIRECTED PRN 11/24/22 08/26/23 History gel Rash metformin 1,000 mg tablet 1,000 mg PO BID 01/01/23 08/26/23 History folfirinox See Rx Instructions .Route .COMPLEX 08/26/23 08/26/23 History Past Med/Surg History Problem List (Updated 08/27/23 @ 07:03 by Rob Alcala MD) Leukocytosis GIB (gastrointestinal bleeding) (Acute) BRBPR (bright red blood per rectum) (Acute) Abnormal CT of the abdomen (Acute) Colon cancer metastasized to liver Lung nodule, solitary Anemia Bloodstream infection due to Port-A-Cath Diabetes mellitus Pancytopenia due to antineoplastic chemotherapy Pancytopenia Anemia GERD (gastroesophageal reflux disease) Iron deficiency Liver function abnormality Neutropenia (Acute) Electrolyte abnormality Esophagitis Hypertension Colon cancer 02/2018--sx, chemo--metastasized to liver and lymph nodes GERD (gastroesophageal reflux disease) Diabetes mellitus, type 2 Medical History (Updated 08/27/23 @ 07:03 by Rob Alcala MD) History of pulmonary embolism Noted on 09/2018 CT scan of chest > Xarelto Clostridioides difficile diarrhea History of pulmonary embolism Gram positive sepsis Sleep apnea mild > no device Acute blood loss anemia Gastric outlet obstruction Elevated troponin Abdominal pain Acute upper gastrointestinal bleeding Thrombocytopenia Colon cancer metastasized to liver Diabetes 1.5, managed as type 2 Anemia Surgical History History of surgery of liver 05/2019 @ [facility] [place] another 30% removed at that time 2021 > another cancerous area removed "TACE" procedure in August 2022 [facility] [place] History of colon resection 01/2019 @ [facility] [place] 6-8 inches removed with portion of liver removed (40%) History of colostomy reversal 05/2019 @ [facility] [place] during liver sx History of colonoscopy History of colostomy 2017 @ [facility] [place], per pt no colon resection only colostomy History of vascular access device Aport on right side History of wisdom tooth extraction Hx of vasectomy History of esophagogastroduodenoscopy (EGD) Family History Unknown Family history of diabetes mellitus Aunt Family hx of colon cancer Other No family history of adverse response to anesthesia Social History Smoking Status: Former smoker Second Hand Exposure: No; Do You Dip or Chew Tobacco: No; Hx Alcohol Use: Yes Alcohol type: beer Hx Substance Use: No Preferred Language: Serbian Communication Ability: Effective Loan Associate Required: No Beliefs That Will Affect Care: None marital status: Current Living Situation: Spouse and Family Current Living Situation Comment: Lives with and 2 daughters Other Information That Helps Us Care for You: No Feels Safe at Home: Yes Safety Concerns: Feels Safe At This Time Assistive Devices: Glasses Review of Systems Review of Systems: All systems reviewed & are unremarkable except as noted in HPI & below Physical Exam Constitutional: WD/WN, vitals as above Respiratory: normal respiratory effort, lungs clear to auscultation Cardiovascular: RRR, no murmur, no edema Gastrointestinal (Abdomen): normal bowel sounds, soft, nontender, no hepatosplenomegaly Musculoskeletal: no cyanosis or clubbing, extremities motor strength 5/5 Skin: no rashes, warm and dry Neurologic: moves all extremities and awake; not confused Psychiatric: A+Ox3, euthymic affect Results & Data Results & Data Vital Signs (Past 12 Hours) Vital Signs Temp Pulse Resp BP Pulse Ox O2 Del Method 08/26/23 13:05 72 19 111/69 08/26/23 12:10 71 08/26/23 11:34 Room Air 08/26/23 11:30 36.9 C 78 14 127/88 95 Room Air Laboratory Results Abnormal lab results 08/26/23 08/26/23 Range/Units 11:45 13:15 WBC 26.73 H (4.8-10.8) K/ul Hgb 13.7 L (14.0-18.0) g/dl Hct 41.8 L (42.0-52.0) % RDW Std Deviation 47.1 H (36.4-46.3) fL RDW Coeff of Bulmaro 14.8 H (11.5-14.5) % Plt Count 123 L (130-400) K/uL Neut # (Auto) 24.25 H (1.40-6.50) K/uL Lymph # (Auto) 0.64 L (1.20-3.40) K/uL [place] # (Auto) 0.08 L (0.11-0.59) K/uL Immature Gran # (Auto) 1.57 H (0.01-0.20) K/uL Sodium 135 L (136-145) mmol/L Glucose 255 H (70-99(Fasting)) mg/dl Total Bilirubin 1.1 H D (0.2-1.0) mg/dl Alkaline Phosphatase 164 H (34-104) U/L Urine Protein 1+ H (Negative) Urine Glucose (UA) Trace H (Negative) Urine Ketones Trace H (Negative) Urine Bilirubin 1+ H (Negative) Diagnostic Findings None Medications Administered ER Medications Given: Normal saline 1L bolus ECG Rate (beats per minute): 79 Rhythm: normal sinus Findings: + other (premature supraventricular complexes) Comparison ECG Date: from (August 24, 2023) Change: the following changes noted (premature supraventricular complexes are new) Code Status & VTE Plan Code Status Full VTE Prophylaxis Plan VTE Prophylaxis will be ordered: Yes PG Care Time/CCT Total # of Minutes Spent Total Time Spent with Patient: Total time spent is greater than 50% in coordination of care (as documented) at patient's floor/unit and/or counseling patient: Coding Level of Care Code 03072 INT INP/OBS CARE 2/55MIN Diagnoses BRBPR (bright red blood per rectum) K62.5 Colon cancer metastasized to liver C18.9; C78.7 Type 2 diabetes mellitus without complication, without long-term current use of insulin E11.9 Diabetes mellitus complication status: without complication Diabetes mellitus skilled nursing insulin use: without rat exterminator use Diabetes mellitus type: type 2 History of pulmonary embolism Z86.711 Leukocytosis D72.829 (3) Diabetes mellitus Diabetes mellitus complication status: without complication Diabetes mellitus skilled nursing insulin use: without rat exterminator use Diabetes mellitus type: type 2 Qualified Code(s): E11.9 - Type 2 diabetes mellitus without complications
[2023-08-26 16:35] LABS: Adenovirus F 40/41 PCR Not Detected (NotDetected); Astrovirus PCR Not Detected (NotDetected); Campylobacter PCR Not Detected (NotDetected); Cryptosporidium PCR Not Detected (NotDetected); Cyclospora cayetanensis PCR Not Detected (NotDetected); Entamoeba histolytica PCR Not Detected (NotDetected); Enteroaggregative E.coli(EAEC) Not Detected (NotDetected); Enteropathogenic E.coli (EPEC) Not Detected (NotDetected); Enterotoxigenic E.coli (ETEC) Not Detected (NotDetected); Giardia lamblia PCR Not Detected (NotDetected); Norovirus GI/GII PCR Not Detected (NotDetected); Plesiomonas shigelloides PCR Not Detected (NotDetected); Rotavirus A PCR Not Detected (NotDetected); Salmonella PCR Not Detected (NotDetected); Sapovirus PCR Not Detected (NotDetected); Shiga-like Toxin E.coli (STEC) Not Detected (NotDetected); Shigella/Enteroinvasive E.coli Not Detected (NotDetected); Vibrio cholerae PCR Not Detected (NotDetected); Vibrio species PCR Not Detected (NotDetected); Yersinia enterocolitica PCR Not Detected (NotDetected)
[2023-08-26 16:50] LABS: Cdiff Toxin B Gene (2yr or >) Positive Cdiff Gene (Neg)
[2023-08-26 16:51] LABS: Cdiff Antigen Positive; Cdiff Toxin A+B Negative Cdiff Toxin (Negative)
--- NOTE | 2023-08-26 17:17 | Ultrasound Report ---
US duplex aorta/iliacs/IVC ltd HISTORY: 53 years-old Male ?IVC thrombus on CT transabdominal pain with colon cancer COMPARISON: CT 08/24/2023 TECHNIQUE: Multiple real-time sonographic images of the hepatic vasculature were obtained assessing g rayscale appearance, color and spectral flow FINDINGS: IVC is mostly obscured by bowel gas. The imaged portions of the IVC are patent with normal spectral w aveforms. The visualized iliac veins are patent. IMPRESSION: Limited exam secondary to obscuring bowel gas. The visualized IVC is patent. ACT 112: Negative or not required by law. The above report was generated using voice recognition software. It may contain grammatical, syntax o r spelling errors. Electronically signed by: Edvin Castellanos M.D. 08/26/2023 5:16 PM
[2023-08-26] MEDS ORDERED: GLUCOSE 10 TAB/TUBE PO PRN (18:22)
[2023-08-26] MEDS ORDERED: GLUCOSE 40% GEL 15 GM TUBE PO PRN (18:22)
[2023-08-26] MEDS ORDERED: LOPERAMIDE HCL 2 MG CAP PO PRN (18:22)
[2023-08-26] MEDS ORDERED: GLUCAGON FOR INJ 1 MG VIAL SQ PRN (18:22)
[2023-08-26] MEDS ORDERED: DEXTROSE 50% 50 ML SYRINGE IV PRN (18:22)
[2023-08-26] MEDS ORDERED: CARBOHYDRATES FOR HYPOGLYCEMIA PO PRN (18:22)
[2023-08-26 19:54] LABS: Hematocrit (blood only) 37.2 % (42.0-52.0)
[2023-08-26] MEDS: INSULIN ASPART PER UNIT CHARGE SC SCH (20:33)
[2023-08-27] MEDS ORDERED: ACETAMINOPHEN 325 MG TAB PO PRN (00:08)
[2023-08-27 06:36] LABS: Hematocrit (blood only) 38.3 % (42.0-52.0); Hemoglobin 12.3 g/dl (14.0-18.0); Mean Corpuscular Hemoglobin 27.9 pg (25.0-34.0); Mean Corpuscular Hgb Conc 32.1 g/dL (32.0-36.0); Mean Corpuscular Volume 86.8 fL (80.0-100.0); Mean Platelet Volume 11.6 fL (9.4-12.4); Platelet Count 90 K/uL (130-400); RDW Coefficient of Variation 14.6 % (11.5-14.5); RDW Standard Deviation 47.3 fL (36.4-46.3); Red Blood Count 4.41 M/uL (4.70-6.10); White Blood Count 20.83 K/ul (4.8-10.8)
[2023-08-27 06:46] LABS: BUN Creatinine Ratio 12.4 (10-20); Creatinine Clr Calc Pharmacy 97.8 ml/min; Est GFR (African American) 92.2 ml/min; Est GFR (Non-African American) 79.5 ml/min; Potassium 4.8 mmol/L (3.5-5.1)
[2023-08-27 07:12] LABS: ALC (manual) 0.62 K/uL (1.2-3.4); ANC (manual) 19.79 K/uL (1.4-6.5); Dohle Bodies 1+; Eosinophils # (manual) 0.21 K/uL (0-0.50); Eosinophils % (manual) 1 %; Lymphocytes # (manual) 0.62 K/uL (1.2-3.4); Lymphocytes % (manual) 3 %; Metamyelocytes # (manual) 0.21 K/uL (0-0); Metamyelocytes % (manual) 1 %; Neutrophils # (manual) 19.79 K/uL (1.40-6.50); Neutrophils % (manual) 95 %
[2023-08-27 07:18] LABS: Estimated Average Glucose 186 mg/dl; Hemoglobin A1C 8.1 % (4.5-5.6)
[2023-08-27] MEDS: metFORMIN HCL 500 MG TAB PO SCH (07:49)
[2023-08-27] MEDS: FERROUS SULFATE 325 MG TAB PO SCH (07:49)
[2023-08-27] MEDS: LOSARTAN POTASSIUM 25 MG TAB PO SCH (07:49)
[2023-08-27] MEDS: PANTOprazole 40 MG TAB PO SCH (07:49)
--- NOTE | 2023-08-27 10:47 | Gastrointestinal Consultation ---
Date of Consultation August 27, 2023 Assessment & Plan (1) BRBPR (bright red blood per rectum): (2) Colon cancer metastasized to liver: Plan Patient with history of colon cancer with metastasis to the liver, admitted with concerns for rectal bleeding after most recent chemotherapy treatment. Most recent colonoscopy 01/05/24 with internal hemorrhoids. Had discussed case with Dr. Amato. - recommend supportive care. - continue to follow hgb/hct. transfuse as needed. - colonoscopy is still fairly up to date. can monitor and see how he does. Supervising Physician Co-Signing Physician Notes Agree with MOSES Orozco as above Interviewed and examined patient and agree with above Abd: Soft, NT, ND, +BS Continue current therapy and supportive care Clear liquid diet Bowel prep tonight Colonoscopy in AM History of Present Illness Reason for Consultation: history of colon cancer, GIB Requesting Physician: Delilah Gross PA-C Attending Physician: Pravin Francois History of Present Illness Patient is a 53 year old gentleman with history of metastatic colon cancer with metastasis to the liver (first diagnosed in 2017), currently on chemotherapy (5FU) and recent radiation therapy at [facility] (Y[facility]), status post Neulasta injection last week. He presented to the emergency department with a chief complaint of rectal bleeding. Patient was here in the emergency room last week on Sunday with similar complaints and was ultimately discharged home following reassuring CT imaging and lab work after an episode of rectal bleeding. He uses Xarelto for history of PE but this has been on hold since Sunday. he tells me that since sunday he had more episodes of rectal bleeding with bowel movements and this was concerning so he came back to the ED for further evaluation. He tells me this looked like a lot of blood to him. He typically can get diarrhea after his chemo treatments and admits stools have been loose. stool studies negative other than C diff gene was positive. toxin was negative. rest of stool panel negative. 08/27/23 hgb 12.3 (previously was 12). 08/24/23 hgb 13.7. Patient denies any current issues with nausea, vomiting, dysphagia, heartburn, abdominal pain, unintentional weight loss, melena. colonoscopy last done 01/05/24 showing non bleeding internal hemorrhoids. Allergies Allergy/AdvReac Type Severity Reaction Status Date / Time cetuximab [From Erbitux] Allergy Severe Bronchial Verified 08/26/23 14:20 Spasms semaglutide [From Ozempic] Allergy Intermediate Gastrointestinal Unverified 08/26/23 14:20 Upset tirzepatide [From Mounjaro] Allergy Intermediate Gastrointestinal Unverified 08/26/23 14:20 Upset Home Medications Medication Instructions Recorded Confirmed Type fluticasone propionate 50 2 spray intranasal DAILY PRN 04/25/18 08/26/23 History mcg/actuation nasal Allergy Symptoms spray,suspension (Flonase Allergy Relief) pantoprazole 40 mg tablet,delayed 40 mg PO QAM 07/22/18 08/26/23 History release (Protonix) rivaroxaban 20 mg tablet (Xarelto) 20 mg PO QPM 03/19/19 08/26/23 History ferrous sulfate 325 mg (65 mg 65 mg PO DAILY 11/16/22 08/26/23 History iron) tablet (iron) loperamide 2 mg capsule 2 mg PO DIRECTED PRN Diarrhea 11/16/22 08/26/23 History losartan 25 mg tablet 25 mg PO QAM 11/16/22 08/26/23 History ondansetron HCl 8 mg tablet 8 mg PO DIRECTED PRN 11/16/22 08/26/23 History NAUSEA/VOMITING clindamycin phosphate 1 % topical 1 applic topical DIRECTED PRN 11/24/22 08/26/23 History gel Rash metformin 1,000 mg tablet 1,000 mg PO BID 01/01/23 08/26/23 History folfirinox See Rx Instructions .Route .COMPLEX 08/26/23 08/26/23 History Patient History Medical History (Updated 08/27/23 @ 07:03 by Rob Alcala MD) History of pulmonary embolism Noted on 09/2018 CT scan of chest > Xarelto Clostridioides difficile diarrhea History of pulmonary embolism Gram positive sepsis Sleep apnea mild > no device Acute blood loss anemia Gastric outlet obstruction Elevated troponin Abdominal pain Acute upper gastrointestinal bleeding Thrombocytopenia Colon cancer metastasized to liver Diabetes 1.5, managed as type 2 Anemia Surgical History History of surgery of liver 05/2019 [place] [facility] [place] 30% removed at that time 2021 > another cancerous area removed "TACE" procedure in August 2022 [facility] [place] of colon resection 01/2019 @ [facility] [place] 6-8 inches removed with portion of liver removed (40%) History of colostomy reversal 05/2019 @ [facility] [place] during liver sx History of colonoscopy History of colostomy 2017 @ [facility] [place], per pt no colon resection only colostomy History of vascular access device Aport on right side History of wisdom tooth extraction Hx of vasectomy History of esophagogastroduodenoscopy (EGD) Family History Unknown Family history of diabetes mellitus Aunt Family hx of colon cancer Other No family history of adverse response to anesthesia Social History Smoking Status: Former smoker Second Hand Exposure: No; Do You Dip or Chew Tobacco: No; Hx Alcohol Use: Yes Alcohol type: beer Hx Substance Use: No Preferred Language: Norwegian Communication Ability: Effective Linen Controller Required: No Beliefs That Will Affect Care: None marital status: Current Living Situation: Spouse and Family Current Living Situation Comment: Lives with and 2 daughters Other Information That Helps Us Care for You: No Feels Safe at Home: Yes Safety Concerns: Feels Safe At This Time Assistive Devices: None Review of Systems Review of Systems: All systems reviewed & are unremarkable except as noted in HPI & below Physical Exam Constitutional: WD/WN, vitals as above Respiratory: normal respiratory effort, lungs clear to auscultation Cardiovascular: RRR, no murmur, no edema Gastrointestinal (Abdomen): normal bowel sounds, soft, nontender, no hepatosplenomegaly Psychiatric: Orientation: alert and oriented x 3 Affect: euthymic affect Results & Data Vital Signs (Past 12 Hours) Vital Signs Temp Pulse Resp BP Pulse Ox O2 Del Method 08/27/23 07:45 98.1 F 71 16 110/72 97 Room Air Coding Level of Care Code 73617 IN/OBS CONSULT LVL 3,45M Diagnoses BRBPR (bright red blood per rectum) K62.5 Colon cancer metastasized to liver C18.9; C78.7
[2023-08-27] MEDS: LAVAGE SOLUTION 4000ML PO SCH (16:15)
--- NOTE | 2023-08-27 18:14 | Hospitalist Progress Note ---
Date of Service August 27, 2023 Assessment & Plan (1) BRBPR (bright red blood per rectum): Plan: Recent ER visit for the same on 08/23. Concern with history of colon cancer - Hgb remaining stable at 12.3 - transfusion threshold less than 7 - stool biofire negative, cdiff gene positive, toxin negative - known hx of cdiff GI consulted with continued GI bleed this AM - plan for colonoscopy 08/27 Continue clear liquid diet for now, NPO at midnight (2) Colon cancer metastasized to liver: Plan: Currently on 5FU with radiation. Last treatment 08/21-08/23 with Neulasta injection (3) Diabetes mellitus: Plan: HbA1C 6.1 in November, repeat 8.1 Continue metformin Novolog correction factor only (4) History of pulmonary embolism: Plan: Xarelto currently on hold, will get US IVC doppler as prior CT suggests mixing of blood vs. clot in IVC (5) Leukocytosis: Plan: Suspected secondary to Neulasta Plan VTE Prophylaxis - SCD dispo: continued inpatient stay, plan for colonoscopy tomorrow Discussed with family at bedside. discussed with Dr. thomas Admission and Anticipated Discharge Date Admission Date: August 26, 2023 Subjective patient seen just after lunch. Has only had 1 episode of bloody bowel movement earlier this morning. Endorses blood in the toilet water and also while wiping. denies any abdominal pain. reports good appetite for being a few days out from chemo. stools are loose, but this is normal for him after his chemo treatment Review of Systems Review of Systems: All systems reviewed & are unremarkable except as noted in Subjective Physical Exam Physical Exam: General: NAD, VS as above Resp: normal respiratory effort, lungs clear to auscultation CV: RRR, no murmur, Abd: normal bowel sounds, non tender, no hepatosplenomegaly. multiple scars, no bruising Extremities: Moves all extremities, no edema Neuro: A&O x3, Results & Data Results & Data Vital Signs (Past 12 Hours) Vital Signs Temp Pulse Resp BP BP Pulse Ox O2 Del Method 08/27/23 15:19 36.6 C 71 16 103/68 97 Room Air 08/27/23 07:45 36.7 C 71 16 110/72 97 Room Air Laboratory Results CBC and chemistry reviewed PG Care Time/CCT Total # of Minutes Spent Total Time Spent with Patient: Total time spent is greater than 50% in coordination of care (as documented) at patient's floor/unit and/or counseling patient: Coding Level of Care Code 85896 SUB INP/OBS CARE 3/50MIN Diagnoses BRBPR (bright red blood per rectum) K62.5 Colon cancer metastasized to liver C18.9; C78.7 Type 2 diabetes mellitus without complication, without long-term current use of insulin E11.9 Diabetes mellitus type: type 2 Diabetes mellitus extension service specialist in charge insulin use: without [facility] use Diabetes mellitus complication status: without complication History of pulmonary embolism Z86.711 Leukocytosis D72.829 (3) Diabetes mellitus Diabetes mellitus type: type 2 Diabetes mellitus extension service specialist in charge insulin use: without extension service specialist in charge use Diabetes mellitus complication status: without complication Qualified Code(s): E11.9 - Type 2 diabetes mellitus without complications
--- NOTE | 2023-08-28 08:48 | History & Physical Bridge Note ---
Date of Service August 28, 2023 History & Physical Bridge Note I have examined the patient, reviewed the History & Physical and in the interval since the performance of the History & Physical I have noted the following changes of clinical significance: no changes noted. he finished prep. stools clear. no further bleeding. he denies chest pain, sob, abdominal pain, nausea, vomiting. - proceed with colonoscopy this morning. Supervising Physician Co-Signing Physician Notes Agree with MOSES Orozco as above Abd: Soft, NT, ND, +BS Continue current therapy and supportive care Proceed with colonoscopy now
--- NOTE | 2023-08-28 10:18 | GI REPORT ---
Patient Name: Naun Santamaria Procedure Date: 08/28/2023 8:54 AM Date of : 1970 Admit Type: Inpatient Age: 53 Gender: Male Attending MD: Marc Amato DO, Procedure: Colonoscopy Providers: Marc Amato DO Referring MD: Pravin Francois MD Indications: Hematochezia Medicines: Monitored Anesthesia Care Complications: No immediate complications. Estimated Blood Loss: Estimated blood loss: none. Procedure: Pre-Anesthesia Assessment: - Prior to the procedure, a History and Physical was performed, and patient medications and allergies were reviewed. The patient's tolerance of previous anesthesia was also reviewed. The risks and benefits of the procedure and the sedation options and risks were discussed with the patient. All questions were answered, and informed consent was obtained. Prior Anticoagulants: The patient last took Xarelto (rivaroxaban) 5 days prior to the procedure. ASA Grade Assessment: III - A patient with severe systemic disease. After reviewing the risks and benefits, the patient was deemed in satisfactory condition to undergo the procedure. After I obtained informed consent, the scope was passed under direct vision. Throughout the procedure, the patient's blood pressure, pulse, and oxygen saturations were monitored continuously. The Colonoscope was introduced through the anus and advanced to the terminal ileum. The colonoscopy was performed without difficulty. The patient tolerated the procedure well. The quality of the bowel preparation was good. The terminal ileum, the appendiceal orifice and the rectum were photographed. Findings: The perianal and digital rectal examinations were normal. There was evidence of a prior end-to-end colo-colonic anastomosis in the sigmoid colon. This was patent and was characterized by an intact staple line. The anastomosis was traversed. Non-bleeding internal hemorrhoids were found during retroflexion. The hemorrhoids were small. Impression: - Patent end-to-end colo-colonic anastomosis, characterized by an intact staple line. - Non-bleeding internal hemorrhoids. - No specimens collected. Recommendation: - Return patient to [facility] for [facility] care. - Advance diet as tolerated. - Resume Xarelto (rivaroxaban) at prior dose in 3 days. - Repeat colonoscopy in 3 years for surveillance. Marc Amato DO 08/28/2023 10:18:16 AM This report has been signed electronically. Note Initiated On: 08/28/2023 8:54 AM Number of Addenda: 0 I attest to the content of the Intraoperative Record and orders documented therein, exceptions below {[id number]}
--- NOTE | 2023-08-28 10:27 | Anesthesiology Progress Note ---
Date of Service August 28, 2023 Anesthesia Post Procedure Vital Signs Vital Signs: Temp Pulse Resp BP BP Pulse Ox O2 Del Method 08/28/23 10:07 65 14 116/75 96 Room Air 08/28/23 09:52 65 14 114/79 95 Room Air 08/28/23 09:37 68 12 85/59 L 97 Room Air 08/28/23 08:44 36.1 C L 74 16 134/83 97 Room Air 08/28/23 07:35 36.6 C 76 16 118/67 97 Room Air 08/27/23 22:22 36.6 C 73 18 142/76 H 99 Room Air 08/27/23 15:19 36.6 C 71 16 103/68 97 Room Air Transfer of Care Handoff Completed per policy Notes Mental Status: alert / awake / arousable Patient Amnestic to Procedure: Yes Nausea / Vomiting: adequately controlled Pain: adequately controlled Airway Patency, RR, SpO2: stable & adequate BP & HR: stable & adequate Hydration State: stable & adequate Anesthetic Complications: no major complications apparent
[2023-08-28] MEDS: SODIUM CHLORIDE 0.9% 500 ML IV SCH (10:54)
[2023-08-28 11:24] LABS: Hemoglobin 11.3 g/dl (14.0-18.0); Mean Corpuscular Hemoglobin 27.6 pg (25.0-34.0); Mean Corpuscular Hgb Conc 32.3 g/dL (32.0-36.0); Mean Corpuscular Volume 85.4 fL (80.0-100.0); Mean Platelet Volume 11.4 fL (9.4-12.4); Platelet Count 86 K/uL (130-400); RDW Coefficient of Variation 14.6 % (11.5-14.5); RDW Standard Deviation 45.7 fL (36.4-46.3); White Blood Count 13.08 K/ul (4.8-10.8)
[2023-08-28 11:55] LABS: Calcium 8.7 mg/dl (8.6-10.3); Creatinine Clr Calc Pharmacy 114.1 ml/min; Est GFR (Non-African American) 95.8 ml/min; Potassium 4.1 mmol/L (3.5-5.1)
[2023-08-28 12:03] LABS: Basophils # (auto) 0.08 K/uL (0.00-0.20); Basophils % (auto) 0.6 %; Dohle Bodies 1+; Eosinophils # (auto) 0.11 K/uL (0.00-0.50); Eosinophils % (auto) 0.8 %; Immature Granulocytes # (auto) 1.24 K/uL (0.01-0.20); Immature Granulocytes % (auto) 9.5 %; Lymphocytes % (auto) 5.4 %; Monocytes # (auto) 0.25 K/uL (0.11-0.59); Monocytes % (auto) 1.9 %; Neutrophils % (auto) 81.8 %
--- NOTE | 2023-08-28 13:30 | Discharge Summary ---
Discharge Summary Date of Service August 28, 2023 Notes For Next Care Provider patient had recurrence of rectal bleeding, hemoglobin remained stable. Colonoscopy done without evidence of bleeding, did show internal hemorrhoids. Plan to resume Xarelto in 3 days. Recheck hemoglobin outpatient Medication Changes From Visit none Admission HPI Per Admitting Provider Naun Santamaria is a 53 year old male wtih metastatic colon cancer who presents to the ER with rectal bleeding. Initial bleeding started on Sunday following chemotherapy and diarrhea from chemotherapy while on Xarelto. He presented to the ER on Sunday and was ultimately discharged with a stable hemoglobin and Xarelto was appropriately discontinued. Principal Dx & Hospital Course #1 = Principal Diagnosis (1) BRBPR (bright red blood per rectum): Recent ER visit for the same on 08/23. Concern with history of colon cancer - Hgb remaining stable - did not require transfusion - stool biofire negative, cdiff gene positive, toxin negative - known hx of cdiff GI consulted with continued GI bleed this AM - colonoscopy 08/27, showing internal hemorrhoids, no signs of bleeding - okay to resume Xarelto in 3 days no episodes of bloody stools since early a.m. 08/26, no blood in stools with bowel prep for colonoscopy stable to discharge home with repeat labs later this week (2) Colon cancer metastasized to liver: Currently on 5FU with radiation. Last treatment 08/21-08/23 with Neulasta injection (3) Diabetes mellitus: HbA1C 6.1 in November, repeat 8.1 Continue metformin defer additional treatment to PCP, patient states he supposed to start Ja rdiance soon (4) History of pulmonary embolism: Xarelto currently on hold - plan to resume in 3 days as above - iliac ultrasound:Limited exam secondary to obscuring bowel gas. The visualized IVC is patent. - Performed after concern for clot on CT scam (5) Leukocytosis: Suspected secondary to Neulasta improving Plan dispo: Discharged home Discussed with family at bedside. Discharge Exam General: no pallor NAD, VS as above Resp: normal respiratory effort, lungs clear to auscultation CV: RRR, no murmur, Abd: normal bowel sounds, non tender, no hepatosplenomegaly. multiple scars, no bruising Extremities: Moves all extremities, no edema Neuro: A&O x3, Updated Medication List Medication Instructions Recorded Confirmed Type fluticasone propionate 50 2 spray intranasal DAILY PRN 04/25/18 08/26/23 History mcg/actuation nasal Allergy Symptoms spray,suspension (Flonase Allergy Relief) pantoprazole 40 mg tablet,delayed 40 mg PO QAM 07/22/18 08/26/23 History release (Protonix) rivaroxaban 20 mg tablet (Xarelto) 20 mg PO QPM 03/19/19 08/26/23 History ferrous sulfate 325 mg (65 mg 65 mg PO DAILY 11/16/22 08/26/23 History iron) tablet (iron) loperamide 2 mg capsule 2 mg PO DIRECTED PRN Diarrhea 11/16/22 08/26/23 History losartan 25 mg tablet 25 mg PO QAM 11/16/22 08/26/23 History ondansetron HCl 8 mg tablet 8 mg PO DIRECTED PRN 11/16/22 08/26/23 History NAUSEA/VOMITING clindamycin phosphate 1 % topical 1 applic topical DIRECTED PRN 11/24/22 08/26/23 History gel Rash metformin 1,000 mg tablet 1,000 mg PO BID 01/01/23 08/26/23 History folfirinox See Rx Instructions .Route .COMPLEX 08/26/23 08/26/23 History Hospital Stay Data Consultations 08/26/23 13:44 ED Decision to Admit Stat 08/27/23 09:51 Consult Gastroenterology Routine Procedures Performed Operation Date: 08/28/23 16:30 Actual Procedures p Colonoscopy - Marc Wood Case, DO Diagnostic Imagining Performed Aorta Iliac Ultrasound 08/26/23 14:37 US duplex aorta/iliacs/IVC ltd HISTORY: 53 years-old Male ?IVC thrombus on CT transabdominal pain with colon cancer COMPARISON: CT 08/24/2023 TECHNIQUE: Multiple real-time sonographic images of the hepatic vasculature were obtained assessing grayscale appearance, color and spectral flow FINDINGS: IVC is mostly obscured by bowel gas. The imaged portions of the IVC are patent with normal spectral waveforms. The visualized iliac veins are patent. IMPRESSION: Limited exam secondary to obscuring bowel gas. The visualized IVC is patent. ACT 112: Negative or not required by law. The above report was generated using voice recognition software. It may contain grammatical, syntax or spelling errors. Electronically signed by: Edvin Castellanos M.D. 08/26/2023 5:16 PM Pending Results Patient Have Any Pending Studies at Discharge: No Discharge Instructions Given to Patient (Per Discharging Provider) Mr. Santamaria, you were hospitalized after 2 episodes of rectal bleeding, thankfully this seems to have stopped on its own. You underwent colonoscopy with Dr. Guzmán on 08/27 that did not show any evidence of active bleedingit did show some internal hemorrhoids. Recommendations at this time are for a repeat hemoglobin level later this week/earlier next week. This can be done at any mount in the lab. If you have more episodes of rectal bleeding you can have this done this week. Thankfully during your stay your hemoglobin has remained stable and you do not require any blood transfusions. The GI team has recommended you resume your Xarelto in 3 days. We did check your hemoglobin A1c while you are here, this is the average of your blood sugars over 90 days. This came back at 8.1 which is elevated from your prior. you should discuss this with your PCP if you are unable to tolerate Jardiance you may need a different medication. Continue the metformin. Activity: You can do normal everyday activities as your body allows. Take rest breaks if you feel tired. Do not overexert. Stop activity if you have pain, shortness of breath or feel dizzy. Follow-up appointments: Make an appointment with your primary care physician within one week of discharge. A copy of this summary will be sent to them. Every time you see your primary care physician, or any other doctor, bring your medication list, and a list of questions. CONTACT YOUR PRIMARY CARE PROVIDER if you experience any of the following: Shortness of breath or difficulty breathing Fevers or chills Feeling tired with normal activity or experiencing dizziness or fainting Difficulty following your treatment plan, or difficulty taking medications - singular episode of rectal bleeding CALL 911 OR GO TO THE EMERGENCY DEPARTMENT if you experience any of the following: Severe abdominal pain or nausea/vomiting Severe chest pain, or chest pain that radiates (moves) to your jaw or arm Sudden, severe shortness of breath or difficulty breathing - multiple episodes of rectal bleeding, lightheadedness or dizziness/weakness Thank you for allowing us to participate in your care. Total Time Total Time Spent Total Time Spent (In Minutes): Time spend day of discharge 32 minutes including direct patient care, medication reconciliation, documentation, review of labs and images, and coordination of care. Supervising Physician Co-Signing Physician Notes During face to face encounter, I obtained a brief physical examination, discussed hospital stay with patient and discharge instructions with patient. I discussed discharge plan of care with JIMBO Gross. I reviewed above note and agree with it except for the following: Patient admitted for bright red blood loss by rectum. Patient had a colonscopy which did not show any bleeding. Discharge instructions as noted above. Coding Level of Care Code 37076 INP/OBS DISCH >30 MIN Diagnoses BRBPR (bright red blood per rectum) K62.5 Colon cancer metastasized to liver C18.9; C78.7 Type 2 diabetes mellitus without complication, without long-term current use of insulin E11.9 Diabetes mellitus complication status: without complication Diabetes mellitus correction insulin use: without correction use Diabetes mellitus type: type 2 History of pulmonary embolism Z86.711 Leukocytosis D72.829
== END 2023-08-28 15:20 | disposition home or self-care (01) ==
LOC: 3E 11:25 → ED 11:25 → SUATTDRO 14:10 → 3E 18:01